=== PATIENT | male | born 1935 | race Caucasian/White ===

== ENCOUNTER 2018-12-07 13:51 | Outpatient (CLI) | payer MEDICARE, OTHER ==
[~2018-12-07] VITALS: Ht 172.7 cm; Wt 69.9 kg
[2018-12-07 14:20] VITALS: BP 139/67
[2018-12-07 15:09] LABS: BASOPHILS % (AUTO) 1 % (0-10); EOSINOPHILS # (AUTO) 0.1 10^3/uL (0.0-0.3); EOSINOPHILS % (AUTO) 2 % (0-10); HEMATOCRIT 32 % (40-54); HEMOGLOBIN 9.9 G/DL (13.3-17.7); LYMPHOCYTES # (AUTO) 1.5 X 10^3 (1.0-4.0); LYMPHOCYTES % (AUTO) 29 % (12-44); MEAN CORPUSCULAR HEMOGLOBIN 24 PG (25-34); MEAN CORPUSCULAR HGB CONC 31 G/DL (32-36); MEAN CORPUSCULAR VOLUME 78 FL (80-99); MONOCYTES # (AUTO) 0.3 X 10^3 (0.0-1.0); MONOCYTES % (AUTO) 6 % (0-12); NEUTROPHILS # (AUTO) 3.4 X 10^3 (1.8-7.8); NEUTROPHILS % (AUTO) 63 % (42-75); PLATELET COUNT 233 10^3/uL (130-400); RED CELL DISTRIBUTION WIDTH 17.1 % (10.0-14.5); WHITE BLOOD COUNT 5.3 10^3/uL (4.3-11.0)
[2018-12-07 15:44] LABS: BUN/CREATININE RATIO 13; CALCIUM 9.4 MG/DL (8.5-10.1); CARBON DIOXIDE 25 MMOL/L (21-32); CHLORIDE 103 MMOL/L (98-107); GFR ESTIMATED > 60; GLUCOSE 153 MG/DL (70-105); POTASSIUM 3.9 MMOL/L (3.6-5.0); SODIUM 136 MMOL/L (135-145)
[2018-12-08] MEDS ORDERED: AMLO5TAB9 PO (12:57)
[2018-12-08] MEDS ORDERED: CLOP75TA69 PO (12:57)
[2018-12-08] MEDS ORDERED: PRAV20TA3 PO (12:57)
[2018-12-08] MEDS ORDERED: DIAZ5TAB3 PO (12:57)
[2018-12-08] MEDS ORDERED: NITR0.4T42 SL (12:57)
[2018-12-08] MEDS ORDERED: BENA10TA7 PO (15:47)
[2018-12-08] MEDS ORDERED: FINA5TAB6 PO (15:47)
[2018-12-08] MEDS ORDERED: TAMS0.4C98 PO (15:47)
== END 2018-12-07 16:00 | disposition home or self-care (01) ==
LOC: PREOP 13:51
PROVIDERS: ATTEND Urology
DX: Z01.810 Encounter for preprocedural cardiovascular examination (principal); Z01.812 Encounter for preprocedural laboratory examination; Z11.2 Encounter for screening for other bacterial diseases; N47.1 Phimosis; N40.0 Benign prostatic hyperplasia without lower urinary tract symptoms
CPT/HCPCS: 36415; 80048; 85025; 87081; 93005

== ENCOUNTER 2018-12-09 06:05 | Day surgery (SDC) | payer MEDICARE ==
[~2018-12-09] VITALS: Ht 172.7 cm; Wt 69.9 kg
[~2018-12-09 06:05] MED LIST: AMLO5TAB9 PO; BENA10TA7 PO; CLOP75TA69 PO; DIAZ5TAB3 PO; FINA5TAB6 PO; NITR0.4T42 SL; PRAV20TA3 PO; TAMS0.4C98 PO
[2018-12-09 06:15] VITALS: BP 169/61
--- OUTSIDE RECORDS SUMMARY | 2018-12-09 06:16 | XMS REPORT ---
Author Author Sixto Charlton [facility] Address [address] [place], [place] [id number] Care Team Providers Care Boiler Riveter Name Role Phone Sixto Charlton PCP pharmacy, right source Unavailable Unavailable Sixto Charlton PreferredProvider Allergies and Adverse Reactions Name Reaction Notes simvastatin Plan of Treatment Planned Activity Comments Planned Date Planned Time Plan/Goal Carotid Sono 03/30/2013 12:00 AM CBC With Auto Differential 03/30/2013 12:00 AM CMP 03/30/2013 12:00 AM Lipid Profile 03/30/2013 12:00 AM Flu Injection 3 Years And Above [facility]# [id number] [facility] 04/04/2014 12:00 AM Stool leukocyte detection by light microscopy 09/27/2014 12:00 AM Medications Active Name Start Date Estimated Completion Date SIG Comments Zantac 150 mg oral tablet 07/09/2012 take 1 tablet (150 mg) by oral route 2 times per day betamethasone dipropionate 0.05 % topical cream 08/02/2013 apply a thin layer to the affected area(s) by topical route once daily Nitrostat 0.4 mg sublingual tablet, sublingual 03/28/2015 place 1 tablet (0.4 mg) by sublingual route at the 1st sign of attack; may repeat every 5 min until relief; if pain persists after 3 tablets in 15 min, prompt medical attention is recommended aspirin 81 mg oral tablet,delayed release (DR/EC) 11/20/2015 take 1 tablet (81 mg) by oral route once daily tramadol 50 mg oral tablet 06/12/2017 TAKE ONE TABLET BY MOUTH EVERY 6 HOURS NEEDED 4 Wheeled Walker 10/23/2017 as directed diazepam 5 mg oral tablet 01/08/2018 take 1 tablet by oral route 2 times a day as needed nitroglycerin 0.4 mg sublingual tablet, sublingual 03/19/2018 PLACE ONE TABLET UNDER TONGUE EVERY 5 MINUTES FOR THREE DOSES NEEDED FOR CRUSHING amlodipine 5 mg oral tablet 05/07/2018 TAKE 1 TABLET EVERY DAY benazepril 20 mg oral tablet 05/07/2018 TAKE 1 TABLET EVERY DAY Plavix 75 mg oral tablet 05/07/2018 TAKE 1 TABLET ONE TIME DAILY finasteride 5 mg oral tablet 05/07/2018 TAKE 1 TABLET ONE TIME DAILY pravastatin 40 mg oral tablet 10/01/2018 TAKE 1 TABLET EVERY DAY Flomax 0.4 mg oral capsule 10/01/2018 TAKE 1 CAPSULE ONE TIME DAILY 30 MINUTES AFTER THE SAME MEAL EACH DAY diazepam 5 mg oral tablet 10/01/2018 TAKE 1 TABLET TWICE DAILY NEEDED Name Start Date Expiration Date SIG Comments hydrocortisone 2.5 % topical lotion 11/07/2009 11/21/2009 Flomax 0.4 mg oral capsule,extended release 24hr 11/09/2009 11/04/2010 take 1 capsule (0.4 mg) by oral route once daily 1/2 hour following the same meal each day for 90 days Lortab 10-500 mg oral tablet 05/07/2010 07/06/2010 take 1 tablet by oral route every 6 hours as needed for pain for 30 days Bactroban 2 % topical ointment 10/29/2010 11/05/2010 apply a small amount to the affected area by topical route 3 times per day for 7 days Bactrim DS 800-160 mg oral tablet 11/09/2010 11/16/2010 take 1 tablet by oral route every 12 hours for 7 days atenolol 50 mg oral tablet 12/24/2010 03/24/2011 TAKE ONE TABLET BY MOUTH EVERY DAY Bactrim DS 800-160 mg oral tablet 01/30/2011 02/09/2011 take 1 tablet by oral route every 12 hours for 10 days amitriptyline 25 mg oral tablet 01/02/2012 04/01/2012 TAKE ONE TABLET BY MOUTH AT BEDTIME amoxicillin 500 mg oral capsule 07/03/2012 07/10/2012 take 1 capsule (500 mg) by oral route every 8 hours for 7 days Zithromax Z-Seferino 250 mg oral tablet 08/10/2012 08/20/2012 take 2 tablets (500 mg) by oral route once daily for 1 day then 1 tablet (250 mg) by oral route once daily for 4 days tramadol 50 mg oral tablet 11/30/2012 12/20/2012 TAKE 1 TABLET BY MOUTH EVERY 4- 6 HOURS NEEDED FOR PAIN atenolol 25 mg oral tablet 03/30/2013 04/29/2013 take 1 tablet (25 mg) by oral route once daily for 30 days hydrocodone-acetaminophen 5-325 mg oral tablet 07/28/2013 2013 take 1 tablet by oral route every 6 hours as needed for pain for 15 days Cipro 500 mg oral tablet 01/17/2014 01/24/2014 take 1 tablet (500 mg) by oral route every 12 hours for 7 days Levaquin 500 mg oral tablet 08/08/2014 08/15/2014 take 1 tablet (500 mg) by oral route once daily for 7 days Prilosec 40 mg oral capsule,delayed release(/EC) 01/17/2015 03/18/2015 take 1 capsule by oral route daily for 30 days Proscar 5 mg oral tablet 03/07/2015 05/30/2016 take 1 tablet (5 mg) by oral route once daily for 90 days Levaquin 500 mg oral tablet 04/15/2016 04/22/2016 take 1 tablet (500 mg) by oral route once daily for 7 days Amitiza 8 mcg oral capsule 02/17/2017 02/24/2017 take 1 capsule (8 mcg) by oral route 2 times per day with food and water for 7 days Flagyl 500 mg oral tablet 09/15/2018 09/22/2018 take 1 tablet (500 mg) by oral route every 12 hours for 7 days Cipro 500 mg oral tablet 09/15/2018 09/22/2018 take 1 tablet (500 mg) by oral route every 12 hours for 7 days doxycycline hyclate 100 mg oral capsule 10/12/2018 10/22/2018 take 1 capsule (100 mg) by oral route 2 times per day for 10 days Discontinued Name Start Date Discontinued Date SIG Comments amitriptyline 10 mg oral tablet 01/04/2010 take 1 tablet by oral route daily deleted Fish Oil 1,000 mg oral capsule 01/20/2013 take 3 capsules by oral route daily Niacin Oral 11/20/2015 Westcort 0.2 % topical cream 11/07/2009 07/17/2010 apply to affected area(s) by topical route 2 times per day atenolol 50 mg oral tablet 02/07/2010 04/05/2010 take 1 tablet by oral route 2 times a day for 90 days Ronnie 10-40 mg oral tablet 07/09/2010 11/19/2010 take 1 tablet by oral route once daily Zithromax Z-Seferino 250 mg oral tablet 06/09/2012 take 2 tablets (500 mg) by oral route once daily for 1 day then 1 tablet (250 mg) by oral route once daily for 4 days hydrocodone-acetaminophen 5-500 mg oral tablet 05/26/2012 06/09/2012 take 1 tablet by oral route every 6 hours as needed for pain for 30 days diazepam 5 mg oral tablet 06/09/2012 03/03/2013 take 1 tablet by oral route 4 times a day for 30 days deleted diazepam 5 mg oral tablet 03/03/2013 03/03/2013 TAKE 1 TABLET BY MOUTH FOUR TIMES A DAY deleted Ultram 50 mg oral tablet 04/21/2014 10/07/2014 take 1 tablet (50 mg) by oral route every 6 hours as needed amlodipine 10 mg oral tablet 05/19/2014 03/07/2015 TAKE ONE TABLET BY MOUTH EVERY DAY for 90 days pt stopped to avoid low BP readings isosorbide mononitrate 30 mg oral tablet extended release 24 hr 06/05/2015 06/05/2016 take 1 tablet (30 mg) by oral route once daily in the morning for 90 days Cipro 250 mg oral tablet 07/18/2017 10/23/2017 take 1 tablet (250 mg) by oral route every 12 hours for 7 days Problem List Description Status Onset Actinic keratosis Active Atopic dermatitis Active carotid artery disease Active Hyperlipidemia Active Hypertension Active Anxiety Active Low back pain Active 05/22/2011 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 Retention of urine Active 07/15/2017 Drug therapy Active 07/15/2017 Vital Signs Date Time BP-Sys(mm[Hg] BP-Debbie(mm[Hg]) HR(bpm) RR(rpm) Temp WT HT HC BMI BSA BMI Percentile O2 Sat(%) 10/28/2018 9:17:00 AM 160 mmHg 64 mmHg 70 bpm 14 rpm 97.5 F 156 lbs 66 in 25.1788 kg/m 1.8152 m 99 % 09/21/2018 10:19:00 AM 124 mmHg 80 mmHg 70 bpm 18 rpm 97.8 F 164.5 lbs 66 in 26.55 kg/m2 1.86 m2 97 % 09/15/2018 10:47:00 AM 120 mmHg 60 mmHg 75 bpm 18 rpm 97.7 F 164 lbs 66 in 26.47 kg/m 1.8612 m 98 % 07/13/2018 8:32:00 AM 134 mmHg 60 mmHg 80 bpm 18 rpm 98.2 F 160 lbs 66 in 25.82 kg/m2 1.84 m2 99 % 05/19/2018 10:04:00 AM 128 mmHg 88 mmHg 61 bpm 18 rpm 97.7 F 162 lbs 66 in 26.1472 kg/m 1.8498 m 100 % 10/23/2017 1:21:00 PM 116 mmHg 74 mmHg 65 bpm 18 rpm 98.1 F 155.5 lbs 66 in 25.10 kg/m2 1.81 m2 99 % 07/15/2017 10:07:00 AM 138 mmHg 70 mmHg 78 bpm 18 rpm 150 lbs 66 in 24.2104 kg/m 1.78 m 98 % 03/18/2017 10:20:00 AM 136 mmHg 74 mmHg 62 bpm 18 rpm 96.7 F 168.5 lbs 66 in 27.20 kg/m2 1.89 m2 98 % 02/17/2017 1:28:00 PM 134 mmHg 72 mmHg 66 bpm 18 rpm 98.3 F 168.375 lbs 66 in 27.1762 kg/m 1.8859 m 98 % 06/05/2016 10:19:00 AM 146 mmHg 80 mmHg 76 bpm 16 rpm 96.8 F 170 lbs 66 in 27.44 kg/m2 1.89 m2 97 % 04/15/2016 2:53:00 PM 122 mmHg 64 mmHg 68 bpm 18 rpm 98.3 F 171 lbs 68 in 26.0002 kg/m 1.9291 m 97 % 01/17/2016 11:40:00 AM 122 mmHg 60 mmHg 66 bpm 18 rpm 97.2 F 169 lbs 68 in 25.70 kg/m2 1.92 m2 97 % 11/20/2015 2:09:00 PM 138 mmHg 66 mmHg 57 bpm 16 rpm 97.7 F 169 lbs 68 in 25.6961 kg/m 1.9178 m 98 % 07/11/2015 9:34:00 AM 132 mmHg 60 mmHg 66 bpm 18 rpm 97.5 F 160 lbs 68 in 24.33 kg/m2 1.87 m2 96 % 03/07/2015 9:39:00 AM 145 mmHg 70 mmHg 74 bpm 16 rpm 97.9 F 158 lbs 68 in 24.0236 kg/m 1.8543 m 96 % 01/17/2015 9:16:00 AM 108 mmHg 60 mmHg 64 bpm 18 rpm 97 F 162 lbs 68 in 24.63 kg/m2 1.88 m2 10/07/2014 9:25:00 AM 108 mmHg 60 mmHg 72 bpm 18 rpm 96.6 F 163 lbs 68 in 24.7838 kg/m 1.8834 m 09/20/2014 9:29:00 AM 118 mmHg 54 mmHg 82 bpm 18 rpm 97.5 F 165.25 lbs 68 in 25.13 kg/m2 1.90 m2 97 % 04/04/2014 9:09:00 AM 150 mmHg 64 mmHg 78 bpm 18 rpm 97.9 F 168 lbs 68 in 25.5441 kg/m 1.9121 m 03/08/2014 10:15:00 AM 128 mmHg 72 mmHg 68 bpm 18 rpm 97.8 F 167 lbs 68 in 25.39 kg/m2 1.91 m2 12/28/2013 9:34:00 AM 110 mmHg 60 mmHg 80 bpm 18 rpm 97.8 F 165 lbs 68 in 25.0879 kg/m 1.8949 m 11/25/2013 8:55:00 AM 128 mmHg 62 mmHg 72 bpm 18 rpm 97.1 F 169 lbs 68 in 25.70 kg/m2 1.92 m2 07/28/2013 10:13:00 AM 142 mmHg 72 mmHg 60 bpm 18 rpm 96.8 F 167 lbs 68 in 25.392 kg/m 1.9064 m 05/20/2013 3:26:00 PM 142 mmHg 76 mmHg 72 bpm 18 rpm 97.9 F 166 lbs 68 in 25.24 kg/m2 1.90 m2 03/30/2013 10:51:00 AM 156 mmHg 88 mmHg 72 bpm 18 rpm 98.1 F 168 lbs 68 in 25.5441 kg/m 1.9121 m 01/20/2013 9:45:00 AM 112 mmHg 60 mmHg 68 bpm 18 rpm 98 F 170 lbs 68 in 25.85 kg/m2 1.92 m2 08/10/2012 2:43:00 PM 120 mmHg 62 mmHg 68 bpm 18 rpm 97.6 F 159 lbs 68 in 24.1756 kg/m 1.8602 m 07/09/2012 10:54:00 AM 110 mmHg 64 mmHg 78 bpm 18 rpm 97.6 F 162 lbs 68 in 24.63 kg/m2 1.88 m2 06/09/2012 9:46:00 AM 140 mmHg 56 mmHg 88 bpm 20 rpm 97.6 F 156 lbs 68 in 23.7195 kg/m 1.8425 m 05/26/2012 11:02:00 AM 148 mmHg 60 mmHg 68 bpm 18 rpm 98.1 F 155 lbs 68 in 23.57 kg/m2 1.84 m2 03/11/2012 10:27:00 AM 110 mmHg 60 mmHg 68 bpm 18 rpm 97.6 F 174 lbs 68 in 26.4563 kg/m 1.9459 m 01/15/2012 10:17:00 AM 130 mmHg 62 mmHg 68 bpm 18 rpm 98.6 F 175 lbs 68 in 26.61 kg/m2 1.95 m2 08/14/2011 9:56:00 AM 130 mmHg 64 mmHg 60 bpm 18 rpm 96.8 F 179.5 lbs 68 in 27.2926 kg/m 1.9765 m 05/22/2011 9:48:00 AM 108 mmHg 60 mmHg 64 bpm 18 rpm 98.2 F 178 lbs 04/24/2011 2:38:00 PM 130 mmHg 70 mmHg 63 bpm 18 rpm 96.5 F 180 lbs 68 in 27.3686 kg/m 1.9792 m 98 % 04/01/2011 2:53:00 PM 150 mmHg 70 mmHg 64 bpm 18 rpm 96.8 F 175 lbs 68 in 26.61 kg/m2 1.95 m2 98 % 01/30/2011 10:19:00 AM 150 mmHg 62 mmHg 62 bpm 20 rpm 96.9 F 181 lbs 98 % 11/19/2010 9:03:00 AM 150 mmHg 88 mmHg 60 bpm 18 rpm 97.6 F 184.5 lbs 93 % 11/09/2010 10:08:00 AM 110 mmHg 60 mmHg 72 bpm 16 rpm 97.5 F 186.375 lbs 11/07/2010 2:00:00 PM 110 mmHg 55 mmHg 70 bpm 98.3 F 189 lbs 99 % 10/31/2010 9:33:00 AM 134 mmHg 76 mmHg 60 bpm 18 rpm 96.4 F 192.125 lbs 91 % 10/29/2010 9:17:00 AM 122 mmHg 60 mmHg 64 bpm 18 rpm 97.5 F 191 lbs 10/25/2010 10:21:00 AM 142 mmHg 60 mmHg 68 bpm 20 rpm 98.6 F 190 lbs 07/17/2010 2:53:00 PM 132 mmHg 70 mmHg 60 bpm 20 rpm 97.9 F 189 lbs 05/07/2010 9:02:00 AM 130 mmHg 72 mmHg 60 bpm 20 rpm 97.9 F 189 lbs 04/10/2010 10:47:00 AM 140 mmHg 64 mmHg 72 bpm 20 rpm 96.5 F 04/05/2010 2:09:00 PM 140 mmHg 62 mmHg 56 bpm 20 rpm 97.8 F 184 lbs 03/28/2010 10:56:00 AM 148 mmHg 84 mmHg 54 bpm 16 rpm 97.5 F 184.5 lbs 97 % 03/19/2010 9:01:00 AM 138 mmHg 70 mmHg 58 bpm 20 rpm 98.2 F 185 lbs 02/21/2010 3:33:00 PM 120 mmHg 80 mmHg 56 bpm 18 rpm 96.8 F 185 lbs 02/15/2010 9:03:00 AM 140 mmHg 62 mmHg 60 bpm 20 rpm 96.8 F 187 lbs 02/07/2010 8:08:00 AM 164 mmHg 76 mmHg 60 bpm 20 rpm 96.8 F 188 lbs 12/06/2009 10:49:00 AM 162 mmHg 70 mmHg 72 bpm 97.2 F 186 lbs 11/07/2009 3:24:00 PM 144 mmHg 74 mmHg 74 bpm 97.5 F 189 lbs 09/27/2009 10:21:00 AM 132 mmHg 72 mmHg 72 bpm 97.2 F 188 lbs Social History Name Description Comments denies smoking denies alcohol use Lives with spouse Tobacco Former smoker History of Procedures Date Ordered Description Order Status 07/11/2015 12:00 AM COMPLETE CBC W/AUTO DIFF WBC Reviewed 07/11/2015 12:00 AM COMPREHEN METABOLIC PANEL Reviewed 07/11/2015 12:00 AM LIPID PANEL Reviewed 05/22/2011 12:00 AM DESTRUCT PREMALG LESION Reviewed 08/14/2011 12:00 AM COMPLETE CBC W/AUTO DIFF WBC Reviewed 08/14/2011 12:00 AM COMPREHEN METABOLIC PANEL Reviewed 08/14/2011 12:00 AM LIPID PANEL Reviewed 08/14/2011 12:00 AM ASSAY OF MAGNESIUM Reviewed 08/14/2011 12:00 AM ASSAY OF CK (CPK) Reviewed 08/21/2011 12:00 AM COMPREHEN METABOLIC PANEL Reviewed 01/15/2012 12:00 AM DESTRUCT PREMALG LESION Reviewed 01/15/2012 12:00 AM DESTRUCT PREMALG LES 2-14 Reviewed 03/13/2012 12:00 AM METABOLIC PANEL TOTAL CA Reviewed 03/19/2012 12:00 AM METABOLIC PANEL TOTAL CA Reviewed 05/26/2012 12:00 AM Flu Injection 3 Years And Above [facility]# [id number] C Reviewed 09/27/2009 12:00 AM COMPLETE CBC W/AUTO DIFF WBC Reviewed 09/27/2009 12:00 AM COMPREHEN METABOLIC PANEL Reviewed 09/27/2009 12:00 AM LIPID PANEL Reviewed 07/15/2017 12:00 AM MICROBIOLOGY PROCEDURE Reviewed 08/10/2012 12:00 AM Depo-Medrol 80 Mg Im/C'tara Reviewed 08/10/2012 12:00 AM Decadron, Per 1 Mg [facility]# [id number] Reviewed 05/19/2018 12:00 AM DESTRUCT B9 LESION 1-14 Reviewed 03/30/2013 12:00 AM Flu Injection 3 Years And Above [facility]# [id number] [facility] Reviewed 09/21/2018 11:12 AM US URINE CAPACITY MEASURE Reviewed 09/21/2018 12:00 AM URINALYSIS AUTO W/SCOPE Reviewed 09/21/2018 12:00 AM ELECTROCARDIOGRAM TRACING Reviewed 09/21/2018 12:00 AM METABOLIC PANEL TOTAL CA Reviewed 09/21/2018 12:00 AM COMPLETE CBC W/AUTO DIFF WBC Reviewed 09/21/2018 12:00 AM URINALYSIS AUTO W/SCOPE Reviewed 11/16/2018 12:00 AM URINALYSIS AUTO W/SCOPE Reviewed 07/28/2013 12:00 AM COMPLETE CBC W/AUTO DIFF WBC Reviewed 07/28/2013 12:00 AM COMPREHEN METABOLIC PANEL Reviewed 07/28/2013 12:00 AM LIPID PANEL Reviewed 08/26/2013 12:00 AM ROUTINE VENIPUNCTURE Reviewed 08/26/2013 12:00 AM ASSAY OF PSA TOTAL Reviewed 02/07/2010 12:00 AM DESTRUCT PREMALG LESION Reviewed 02/15/2010 12:00 AM COMPLETE CBC W/AUTO DIFF WBC Reviewed 02/15/2010 12:00 AM COMPREHEN METABOLIC PANEL Reviewed 02/15/2010 12:00 AM LIPID PANEL Reviewed 02/21/2010 12:00 AM BIOPSY SKIN LESION Reviewed 07/17/2010 12:00 AM COMPLETE CBC W/AUTO DIFF WBC Reviewed 07/17/2010 12:00 AM COMPREHEN METABOLIC PANEL Reviewed 07/17/2010 12:00 AM LIPID PANEL Reviewed 07/17/2010 12:00 AM VITAMIN B-12 Reviewed 07/17/2010 12:00 AM ASSAY OF IRON Reviewed 04/06/2014 12:00 AM FLU VAC NO PRSV 4 ALMA DELIA 3 YRS+ Reviewed 10/29/2010 12:00 AM THER/PROPH/DIAG INJ SC/IM Reviewed 10/29/2010 12:00 AM Renan, 1 gm, [facility] [id number] Reviewed 11/09/2010 12:00 AM THER/PROPH/DIAG INJ SC/IM Reviewed 11/09/2010 12:00 AM IMMUNIZATION ADMIN Reviewed 11/09/2010 12:00 AM TD VACCINE NO PRSRV 7/> IM Reviewed 09/20/2014 12:00 AM COMPLETE CBC W/AUTO DIFF WBC Reviewed 09/20/2014 12:00 AM COMPREHEN METABOLIC PANEL Reviewed 09/20/2014 12:00 AM LIPID PANEL Reviewed 09/20/2014 12:00 AM X-RAY EXAM OF WRIST Reviewed 09/20/2014 12:00 AM ASSAY OF BLOOD/URIC ACID Reviewed 09/20/2014 12:00 AM ASSAY OF URINE/URIC ACID Reviewed 11/19/2010 12:00 AM COMPREHEN METABOLIC PANEL Reviewed 11/19/2010 12:00 AM ELECTROCARDIOGRAM COMPLETE Reviewed 09/27/2014 12:00 AM FECES CULTURE AEROBIC BACT Reviewed 09/27/2014 12:00 AM CLOSTRIDIUM AG EIA Reviewed 01/17/2015 12:00 AM EXTRACRANIAL BILAT STUDY Reviewed 01/30/2011 12:00 AM ASSAY OF PSA TOTAL Reviewed Results Summary Date and Description Results 09/27/2009 10:55 AM TRIGLYCERIDES 62.0 mg/dLCHOLESTEROL 165.0 mg/dLHDL 54.0 mg/dLTOT CHOL/HDL 3.1 LDL (CALC) 99.0 mg/dLGLUCOSE 97.0 mg/dLSODIUM 136.0 mmol/LPOTASSIUM 4.40 mmol/LCHLORIDE 100.0 mmol/LCO2 26.0 mmol/LBUN 17.0 mg/dLCREATININE 0.90 mg/dLSGOT/AST 21.0 IU/LSGPT/ALT 16.0 IU/LALK PHOS 65.0 IU/LTOTAL PROTEIN 6.80 g/dLALBUMIN 3.90 g/dLTOTAL BILI 0.50 mg/dLCALCIUM 9.40 mg/dLAGE 74 GFR NonAA 82 GFR AA 99 eGFR >60 mL/min/1.73 m2eGFR AA* >60 WBC 5.1 RBC 4.54 HGB 14.0 g/dLHCT 39.30 %MCV 87.0 fLMCH 30.80 pgMCHC 35.60 g/dLRDW SD 41 RDW CV 12.60 %MPV 9.10 fLPLT 77 NRBC# 0.00 NRBC% 0.0 %NEUT 60.30 %%LYMP 26.80 %%MONO 10.20 %%EOS 2.50 %%BASO 0.20 %#NEUT 3.09 #LYMP 1.37 #MONO 0.52 #EOS 0.13 #BASO 0.01 MANUAL DIFF NOT IND 02/15/2010 9:42 AM TRIGLYCERIDES 89.0 mg/dLCHOLESTEROL 182.0 mg/dLHDL 52.0 mg/dLTOT CHOL/HDL 3.5 LDL (CALC) 112.0 mg/dLWBC 4.2 RBC 4.48 HGB 13.80 g/dLHCT 39.60 %MCV 88.0 fLMCH 30.80 pgMCHC 34.80 g/dLRDW SD 42 RDW CV 13.0 %MPV 10.20 fLPLT 82 NRBC# 0.00 NRBC% 0.0 %NEUT 64.10 %%LYMP 20.70 %%MONO 11.90 %%EOS 3.10 %%BASO 0.20 %#NEUT 2.70 #LYMP 0.87 #MONO 0.50 #EOS 0.13 #BASO 0.01 MANUAL DIFF NOT IND GLUCOSE 99.0 mg/dLSODIUM 134.0 mmol/LPOTASSIUM 4.40 mmol/LCHLORIDE 97.0 mmol/LCO2 29.0 mmol/LBUN 13.0 mg/dLCREATININE 0.80 mg/dLSGOT/AST 16.0 IU/LSGPT/ALT 9.0 IU/LALK PHOS 55.0 IU/LTOTAL PROTEIN 6.70 g/dLALBUMIN 4.0 g/dLTOTAL BILI 0.70 mg/dLCALCIUM 9.20 mg/dLAGE 74 GFR NonAA 94 GFR AA 114 eGFR >60 mL/min/1.73 m2eGFR AA* >60 07/17/2010 4:00 PM IRON TOTAL 100.0 ug/dLTRIGLYCERIDES 93.0 mg/dLCHOLESTEROL 173.0 mg/dLHDL 47.0 mg/dLTOT CHOL/HDL 3.7 LDL (CALC) 107.0 mg/dLVITAMIN B12 492.0 pg/mLWBC 6.3 RBC 4.27 HGB 13.40 g/dLHCT 39.0 %MCV 91.0 fLMCH 31.40 pgMCHC 34.40 g/dLRDW SD 42 RDW CV 12.60 %MPV 9.90 fLPLT 108 NRBC# 0.00 NRBC% 0.0 %NEUT 64.0 %%LYMP 26.0 %%MONO 7.50 %%EOS 2.20 %%BASO 0.30 %#NEUT 4.00 #LYMP 1.63 #MONO 0.47 #EOS 0.14 #BASO 0.02 MANUAL DIFF NOT IND GLUCOSE 116.0 mg/dLSODIUM 133.0 mmol/L POTASSIUM 3.90 mmol/LCHLORIDE 99.0 mmol/LCO2 24.0 mmol/LBUN 17.0 mg/dLCREATININE 1.10 mg/dLSGOT/AST 25.0 IU/LSGPT/ALT 21.0 IU/LALK PHOS 84.0 IU/LTOTAL PROTEIN 7.30 g/dLALBUMIN 4.40 g/dLTOTAL BILI 0.70 mg/dLCALCIUM 9.80 mg/dLAGE 74 GFR NonAA 65 GFR AA 79 eGFR >60 mL/min/1.73 m2eGFR AA* >60 11/19/2010 9:52 AM GLUCOSE 102.0 mg/dLSODIUM 135.0 mmol/LPOTASSIUM 4.40 mmol/LCHLORIDE 98.0 mmol/LCO2 26.0 mmol/LBUN 15.0 mg/dLCREATININE 0.90 mg/dLSGOT/AST 18.0 IU/LSGPT/ALT 14.0 IU/LALK PHOS 58.0 IU/LTOTAL PROTEIN 6.90 g/dLALBUMIN 4.30 g/dLTOTAL BILI 0.60 mg/dLCALCIUM 9.80 mg/dLAGE 75 GFR NonAA 82 GFR AA 99 eGFR >60 mL/min/1.73 m2eGFR AA* >60 01/30/2011 11:10 AM PSA TOTAL 1.870 ng/mL 08/14/2011 10:30 AM WBC 5.3 RBC 4.39 HGB 13.40 g/dLHCT 38.50 %MCV 88.0 fLMCH 30.50 pgMCHC 34.80 g/dLRDW SD 41 RDW CV 12.60 %MPV 9.50 fLPLT 119 NRBC# 0.00 NRBC% 0.0 %NEUT 52.10 %%LYMP 36.20 %%MONO 9.20 %%EOS 2.30 %%BASO 0.20 %#NEUT 2.78 #LYMP 1.93 #MONO 0.49 #EOS 0.12 #BASO 0.01 MANUAL DIFF NOT IND GLUCOSE 95.0 mg/dLSODIUM 126.0 mmol/LPOTASSIUM 4.30 mmol/LCHLORIDE 91.0 mmol/LCO2 26.0 mmol/LBUN 18.0 mg/dLCREATININE 0.90 mg/dLSGOT/AST 18.0 IU/LSGPT/ALT 14.0 IU/LALK PHOS 62.0 IU/LTOTAL PROTEIN 6.80 g/dLALBUMIN 4.10 g/dLTOTAL BILI 0.80 mg/dLCALCIUM 9.50 mg/dLAGE 75 GFR NonAA 82 GFR AA 99 eGFR >60 mL/min/1.73 m2eGFR AA* >60 CPK 97 IU/LTRIGLYCERIDES 67.0 mg/dLCHOLESTEROL 197.0 mg/dLHDL 69.0 mg/dLTOT CHOL/HDL 2.9 LDL (CALC) 115.0 mg/dLMAGNESIUM 1.80 mg/dL 08/21/2011 11:17 AM GLUCOSE 114.0 mg/dLSODIUM 129.0 mmol/LPOTASSIUM 4.60 mmol/LCHLORIDE 93.0 mmol/LCO2 26.0 mmol/LBUN 15.0 mg/dLCREATININE 0.90 mg/dLSGOT/AST 25.0 IU/LSGPT/ALT 15.0 IU/LALK PHOS 71.0 IU/LTOTAL PROTEIN 6.40 g/dLALBUMIN 3.90 g/dLTOTAL BILI 0.60 mg/dLCALCIUM 9.30 mg/dLAGE 75 GFR NonAA 82 GFR AA 99 eGFR >60 mL/min/1.73 m2eGFR AA* >60 03/19/2012 10:36 AM GLUCOSE 108.0 mg/dLSODIUM 133.0 mmol/LPOTASSIUM 4.30 mmol/LCHLORIDE 98.0 mmol/LCO2 25.0 mmol/LBUN 14.0 mg/dLCREATININE 1.10 mg/dLCALCIUM 9.60 mg/dLAGE 76 GFR NonAA 65 GFR AA 79 eGFR 60 eGFR AA* 60 03/20/2012 8:35 AM GLUCOSE 92.0 mg/dLSODIUM 130.0 mmol/LPOTASSIUM 3.90 mmol/LCHLORIDE 96.0 mmol/LCO2 24.0 mmol/LBUN 14.0 mg/dLCREATININE 0.90 mg/dLCALCIUM 9.80 mg/dLAGE 76 GFR NonAA 82 GFR AA 99 eGFR 60 eGFR AA* 60 07/29/2013 8:55 AM WBC 5.3 RBC 4.44 HGB 13.70 g/dLHCT 39.50 %MCV 89.0 fLMCH 30.90 pgMCHC 34.70 g/dLRDW SD 44 RDW CV 13.40 %MPV 9.50 fLPLT 115 NRBC# 0.00 NRBC% 0.0 %NEUT 55.30 %%LYMP 31.80 %%MONO 10.50 %%EOS 2.20 %%BASO 0.20 %#NEUT 2.95 #LYMP 1.70 #MONO 0.56 #EOS 0.12 #BASO 0.01 MANUAL DIFF NOT IND TRIGLYCERIDES 47.0 mg/dLCHOLESTEROL 163.0 mg/dLHDL 68.0 mg/dLTOT CHOL/HDL 2.4 LDL (CALC) 86.0 mg/dLGLUCOSE 104.0 mg/dLSODIUM 132.0 mmol/LPOTASSIUM 3.90 mmol/LCHLORIDE 98.0 mmol/LCO2 26.0 mmol/LBUN 11.0 mg/dLCREATININE 0.90 mg/dLSGOT/AST 21.0 IU/LSGPT/ALT 18.0 IU/LALK PHOS 94.0 IU/LTOTAL PROTEIN 6.70 g/dLALBUMIN 4.10 g/dLTOTAL BILI 1.0 mg/dLCALCIUM 9.80 mg/dLAGE 77 GFR NonAA 82 GFR AA 99 eGFR >60 mL/min/1.73 m2eGFR AA* >60 08/26/2013 8:15 AM PSA TOTAL 2.390 ng/mL 09/21/2014 8:12 AM WBC 5.6 RBC 4.50 HGB 13.40 g/dLHCT 39.70 %MCV 88.0 fLMCH 29.80 pgMCHC 33.80 g/dLRDW SD 44 RDW CV 13.50 %MPV 10.0 fLPLT 129 NRBC# 0.00 NRBC% 0.0 %NEUT 60.10 %%LYMP 29.40 %%MONO 8.70 %%EOS 1.40 %%BASO 0.40 %#NEUT 3.39 #LYMP 1.66 #MONO 0.49 #EOS 0.08 #BASO 0.02 MANUAL DIFF NOT IND GLUCOSE 89.0 mg/dLSODIUM 138.0 mmol/LPOTASSIUM 3.60 mmol/LCHLORIDE 101.0 mmol/LCO2 24.0 mmol/LBUN 13.0 mg/dLCREATININE 0.90 mg/dLSGOT/AST 17.0 IU/LSGPT/ALT 12.0 IU/LALK PHOS 77.0 IU/LTOTAL PROTEIN 6.90 g/dLALBUMIN 4.0 g/dLTOTAL BILI 0.50 mg/dLCALCIUM 9.60 mg/dLAGE 78 GFR NonAA 81 GFR AA 98 eGFR >60 mL/min/1.73 m2eGFR AA* >60 TRIGLYCERIDES 73.0 mg/dLCHOLESTEROL 170.0 mg/dLHDL 58.0 mg/dLTOT CHOL/HDL 2.9 LDL (CALC) 97.0 mg/dLURIC ACID 5.6 mg/dL 09/29/2014 10:45 AM C DIFFICILE NAAT NEGATIVE 07/11/2015 10:30 AM WBC 7.2 RBC 4.69 HGB 13.20 g/dLHCT 39.40 %MCV 84.0 fLMCH 28.10 pgMCHC 33.50 g/dLRDW SD 41 RDW CV 13.60 %MPV 9.80 fLPLT 169 NRBC# 0.00 NRBC% 0.0 %NEUT 70.30 %%LYMP 22.30 %%MONO 6.10 %%EOS 1.0 %%BASO 0.30 %#NEUT 5.07 #LYMP 1.61 #MONO 0.44 #EOS 0.07 #BASO 0.02 MANUAL DIFF NOT IND TRIGLYCERIDES 83.0 mg/dLCHOLESTEROL 188.0 mg/dLHDL 47.0 mg/dLTOT CHOL/HDL 4.0 LDL (CALC) 124.0 mg/dLGLUCOSE 106.0 mg/dLSODIUM 132.0 mmol/LPOTASSIUM 4.30 mmol/LCHLORIDE 99.0 mmol/LCO2 24.0 mmol/LBUN 16.0 mg/dLCREATININE 1.10 mg/dLSGOT/AST 16.0 IU/LSGPT/ALT 12.0 IU/LALK PHOS 82.0 IU/LTOTAL PROTEIN 6.40 g/dLALBUMIN 4.10 g/dLTOTAL BILI 0.90 mg/dLCALCIUM 9.50 mg/dLAGE 79 GFR NonAA 64 GFR AA 78 eGFR >60 mL/min/1.73meGFR AA* >60 07/13/2018 8:39 AM Falls in last 6 months? No Unsteady or worry about falling? Yes Fall Risk Assessment At Risk 09/21/2018 11:12 AM Residual Urine 112.0 mL 09/21/2018 3:49 PM COLOR YELLOW APPEARANCE CLEAR SPEC GRAV 1.015 pH 6.0 PROTEIN NEGATIVE GLUCOSE NEGATIVE KETONE NEGATIVE BILIRUBIN NEGATIVE BLOOD MODERATE NITRITE NEGATIVE LEUK SCREEN TRACE WBC/HPF RARE RBC/HPF 4-10 CASTS/LPF NEGATIVE CRYSTALS NEGATIVE MUCOUS THRDS NEGATIVE BACTERIA NEGATIVE EPITH CELLS NEGATIVE TRICHOMONAS NEGATIVE YEAST NEGATIVE CULT SET UP? NO 10/08/2018 10:15 AM GLUCOSE 107 SODIUM 130 POTASSIUM 4.3 CHLORIDE 98 CO2 23 BUN 11 CREATININE 1.0 CALCIUM 9.2 AGE 83 GFR NonAA 71 GFR AA 86 eGFR 71 eGFR AA* >60 WBC 4.9 RBC 4.19 HGB 10.1 HCT 32.6 MCV 78 MCH 24.1 MCHC 31.0 RDW SD 41 RDW CV 14.7 MPV 9.4 PLT 243 NRBC# 0.00 NRBC% 0.0 %NEUT 60.4 %LYMP 28.7 %MONO 7.7 %EOS 2.4 %BASO 0.6 #NEUT 2.96 #LYMP 1.41 #MONO 0.38 #EOS 0.12 #BASO 0.03 MANUAL DIFF NOT IND 10/08/2018 12:20 PM COLOR YELLOW APPEARANCE CLEAR SPEC GRAV <=1.005 pH 6.5 PROTEIN TRACE GLUCOSE NEGATIVE KETONE NEGATIVE BILIRUBIN NEGATIVE BLOOD NEGATIVE NITRITE NEGATIVE LEUK SCREEN SMALL WBC/HPF 10-20 RBC/HPF NEGATIVE CASTS/LPF NEGATIVE CRYSTALS NEGATIVE MUCOUS THRDS NEGATIVE BACTERIA 1+ EPITH CELLS NEGATIVE TRICHOMONAS NEGATIVE YEAST NEGATIVE CULT SET UP? YES 11/16/2018 11:37 AM COLOR YELLOW APPEARANCE CLEAR SPEC GRAV <=1.005 pH 6.0 PROTEIN NEGATIVE GLUCOSE NEGATIVE KETONE NEGATIVE BILIRUBIN NEGATIVE BLOOD NEGATIVE NITRITE NEGATIVE LEUK SCREEN NEGATIVE WBC/HPF NEGATIVE RBC/HPF NEGATIVE CASTS/LPF NEGATIVE CRYSTALS NEGATIVE MUCOUS THRDS NEGATIVE BACTERIA NEGATIVE EPITH CELLS FEW TRICHOMONAS NEGATIVE YEAST NEGATIVE CULT SET UP? NO History Of Immunizations Name Date Admin Mfg Name Mfg Code Trade Name Lot# Route Inj Vis Given Vis Pub CVX Td 11/09/2010 [employer] BOOSTRIX [id number] Intramuscular Left Arm 11/09/2010 01/29/2008 999 Influenza 05/26/2012 sanofi pasteur PMC [id number] [id number] Intramuscular Left Deltoid 05/26/2012 12/30/2011 141 Influenza 03/30/2013 sanofi pasteur PMC FLUZONE [id number] Intramuscular Left Deltoid 03/30/2013 01/09/2013 141 Influenza 05/07/2016 Not Entered NE Fluarix, quadrivalent, preservative free [id number] Intramuscular Left Arm 05/07/2016 06/30/2018 141 Influenza 04/08/2017 Not Entered NE Not Entered Not Entered Not Entered 07/30/2018 06/30/2018 135 History of Past Illness Name Date of Onset Comments Hypertension Sep 27 2009 10:24AM Hyperlipidemia, unspecified Sep 27 2009 10:24AM Hypertension Hyperlipidemia carotid artery disease Actinic keratosis Atopic dermatitis Anxiety Hypertension Nov 07 2009 3:28PM Hyperlipidemia, unspecified Nov 07 2009 3:28PM Atopic Dermatitis Nov 07 2009 3:28PM Actinic Keratosis Nov 07 2009 3:28PM Low back pain 05/22/2011 Hypertension Dec 06 2009 10:54AM Hypertension Feb 07 2010 8:13AM Actinic Keratosis Feb 07 2010 8:28AM Hypertension Feb 15 2010 9:06AM Hyperlipidemia, unspecified Feb 15 2010 9:06AM Essential Hypertension Mar 19 2010 9:05AM Neoplasm Of Uncertain Behavior Of Skin Feb 21 2010 3:34PM Chest Pain Mar 28 2010 11:04AM Bradycardia Apr 05 2010 2:14PM Hypertension Apr 10 2010 10:49AM Essential Hypertension May 07 2010 9:06AM Hyperlipidemia May 07 2010 9:06AM Hypertension Jul 17 2010 2:54PM Hyperlipidemia, unspecified Jul 17 2010 2:54PM Anemia Jul 17 2010 2:54PM Cellulitis of the leg-RLE Oct 29 2010 9:19AM Cellulitis of the leg-RLE Oct 31 2010 9:36AM Open wound of wrist; without mention of complication Nov 07 2010 2:28PM Open wound of forearm; without mention of complication Nov 09 2010 10:07AM Arrhythmia Nov 19 2010 9:02AM Cellulitis/Abscess, unspecified Oct 25 2010 10:28AM Screening For Prostate Cancer Jan 30 2011 10:36AM Wound infection Jan 30 2011 10:36AM Acquired bladder neck obstruction 07/15/2017 Adenofibromatous hypertrophy of prostate 07/15/2017 Retention of urine 07/15/2017 Drug therapy 07/15/2017 Rectal bleeding Apr 01 2011 2:57PM Diverticulosis of the colon Apr 24 2011 2:40PM Hemorrhoids, Internal Apr 24 2011 2:40PM Actinic Keratosis May 22 2011 10:23AM Low Back Pain May 22 2011 9:46AM Actinic Keratosis May 22 2011 9:46AM Hypertension Aug 14 2011 9:58AM Hyperlipidemia, unspecified Aug 14 2011 9:58AM Muscle cramps Aug 14 2011 9:58AM Leg cramps Aug 21 2011 10:44AM Leg cramps Aug 22 2011 8:31AM Hypertension Jan 15 2012 10:19AM Actinic Keratosis Jan 15 2012 12:12PM Hyponatremia Mar 11 2012 10:32AM Hypertension Mar 13 2012 12:35PM Hyponatremia Mar 13 2012 12:35PM Hyponatremia Mar 19 2012 5:13PM Low Back Pain May 26 2012 11:05AM Hypertension Jun 09 2012 9:55AM Insomnia, unspecified Jun 09 2012 9:55AM Gastritis Jul 09 2012 10:59AM Bronchitis, Acute Aug 10 2012 2:47PM Coronary Artery Disease Jan 20 2013 9:52AM Lumbar spinal stenosis Jan 20 2013 9:52AM Hypertension Mar 30 2013 10:56AM Carotid Stenosis Mar 30 2013 10:56AM Hyperlipidemia, unspecified Mar 30 2013 10:56AM Osteoarthritis Mar 30 2013 10:56AM Carotid Stenosis May 20 2013 3:33PM Atopic Dermatitis Jul 28 2013 10:19AM Hyperlipidemia Jul 28 2013 10:19AM Urinary Retention Jul 28 2013 10:19AM Prostate screening Aug 26 2013 8:10AM Urinary Retention Nov 25 2013 9:00AM Urinary retention Dec 28 2013 9:37AM Actinic keratitis Dec 28 2013 9:47AM BPH (benign prostatic hyperplasia) Mar 08 2014 10:20AM Actinic keratitis Mar 08 2014 1:07PM Actinic keratitis Apr 04 2014 9:35AM Low Back Pain Apr 04 2014 9:12AM carotid artery disease Apr 04 2014 9:12AM Flu Apr 06 2014 3:21PM Hypertension Sep 20 2014 9:35AM Low Back Pain Sep 20 2014 9:35AM Wrist pain Sep 20 2014 9:35AM CAD (coronary artery disease) Sep 20 2014 9:35AM Diarrhea Sep 27 2014 2:07PM Gastroenteritis Oct 07 2014 9:28AM Actinic keratitis Oct 07 2014 9:37AM Carotid artery bruit Jan 17 2015 9:24AM Gastric bleed Jan 17 2015 9:24AM Coronary artery disease Mar 07 2015 9:50AM Hypertension Mar 07 2015 9:50AM Chronic pain Mar 07 2015 9:50AM Anxiety Mar 07 2015 9:50AM General Medical Exam, Adult Jul 11 2015 9:38AM TIA (transient ischemic attack) Nov 20 2015 2:19PM Actinic keratitis Nov 20 2015 2:32PM Hypertension Jan 17 2016 11:42AM Upper Respiratory Infection Apr 15 2016 3:01PM Low Back Pain Jun 05 2016 10:22AM Actinic keratitis Jun 05 2016 10:48AM Annual physical exam Feb 17 2017 1:31PM Hip pain Mar 18 2017 10:22AM Actinic keratitis Mar 18 2017 11:02AM Urinary retention Jul 15 2017 10:39AM Retention of urine Jul 15 2017 10:11AM Adenofibromatous hypertrophy of prostate Jul 15 2017 10:11AM Acquired bladder neck obstruction Jul 15 2017 10:11AM Drug therapy Jul 15 2017 10:11AM Chronic systolic heart failure Oct 23 2017 1:22PM Closed fracture of right hip, sequela Oct 23 2017 1:22PM Actinic keratitis Oct 23 2017 1:38PM Hypertension May 19 2018 10:05AM Actinic keratitis May 19 2018 10:22AM Actinic keratitis Jul 13 2018 8:56AM CAD (coronary artery disease) Jul 13 2018 8:36AM Gastroenteritis Sep 15 2018 10:49AM Dysuria Sep 21 2018 10:26AM Preoperative testing Sep 21 2018 11:22AM Phimosis Sep 21 2018 10:26AM Bladder neck contracture Sep 21 2018 10:26AM S/P TURP Sep 21 2018 10:26AM Actinic keratitis Nov 12 2018 1:09PM Hypertension Oct 28 2018 9:25AM UTI (urinary tract infection) Nov 16 2018 8:34AM Payers Insurance Name Company Name Plan Name Plan Number Policy Number Policy Group Number Start Date Humana Humana Claims Center [id number] N/A Medicare Part A Medicare - Lab/Xray [id number] N/A Medicare Part B Medicare Of [place] [id number] N/A [id number] June Medicare Part A Medicare Part A [id number] N/A [facility] [id number] June History of Encounters Visit Date Visit Type Provider 10/28/2018 Office visit Sixto Charlton MD 09/21/2018 Office visit Ervin Castillo MD 09/15/2018 Office visit Sixto Charlton MD 07/13/2018 Office visit Sixto Charlton MD 05/19/2018 Office visit Sixto Charlton MD 10/23/2017 Office visit Sixto Charlton MD 08/14/2017 [facility] Elham Arcos MD 07/15/2017 Office visit John Curiel MD 06/19/2017 [facility] Elham Arcos MD 06/19/2017 [facility] John Curiel MD 03/18/2017 Office visit Sixto Charlton MD 02/17/2017 Office visit Sixto Charlton MD 06/05/2016 Office visit Sixto Charlton MD 04/15/2016 Office visit Sixto Charlton MD 01/17/2016 Office visit Jane Astudillo APRN 11/20/2015 Office visit Sixto Charlton MD 07/11/2015 Office visit Sixto Charlton MD 03/07/2015 Office visit Sixto Charlton MD 01/17/2015 Office visit Sixto Charlton MD 10/07/2014 Office visit Sixto Charlton MD 09/20/2014 Office visit Sixto Charlton MD 04/04/2014 Office visit Sixto Charlton MD 03/08/2014 Office visit Sixto Charlton MD 12/28/2013 Office visit Sixto Charlton MD 11/25/2013 Office visit Sixto Charlton MD 07/28/2013 Office visit Sixto Charlton MD 05/20/2013 Office visit Sixto Charlton MD 03/30/2013 Office visit Sixto Charlton MD 01/20/2013 Office visit Sixto Charlton MD 08/10/2012 Office visit Sixto Charlton MD 07/09/2012 Office visit Sixto Charlton MD 06/09/2012 Office visit Sixto Charlton MD 05/26/2012 Office visit Sixto Charlton MD 03/28/2012 Hospital Deja James MD 03/27/2012 Hospital DEJA JAMES MD 03/11/2012 Office visit Sixto Charlton MD 03/09/2012 [facility] Elham Arcos MD 01/15/2012 Office visit Sixto Charlton MD 08/14/2011 Office visit Jane Astudillo APRN 05/22/2011 Office visit Sixto Charlton MD 04/24/2011 Office visit Loyd Hester MD 04/11/2011 [facility] Loyd Hester MD 04/01/2011 Office visit Loyd Hester MD 01/30/2011 Office visit Jane Astudillo APRN 11/19/2010 Hospital Elham Arcos MD 11/19/2010 Office visit Jane Astudillo APRN 11/09/2010 Office visit Elham PIKE 11/07/2010 Office visit Elham PIKE 10/31/2010 Office visit Jane Astudillo APRN 10/29/2010 Office visit Jane Astudillo APRN 10/25/2010 Office visit Sixto Charlton MD 07/17/2010 Office visit Sixto Charlton MD 05/07/2010 Office visit Sixto Charlton MD 04/10/2010 Office visit Sxito Charlton MD 04/05/2010 Office visit Sixto Charlton MD 03/28/2010 Office visit Sixto Charlton MD 03/19/2010 Office visit Sixto Charlton MD 02/21/2010 Procedures Loyd Hester MD 02/15/2010 Office visit Sixto Charlton MD 02/07/2010 Office visit Sixto Charlton MD 12/06/2009 Procedures Sixto Cahrlton MD 11/07/2009 Office visit Sixto Charlton MD 09/27/2009 Office visit Sixto Charlton MD 04/13/2009 Nurse visit Sixto Charlton MD 04/03/2009 Office visit Sixto Charlton MD 02/20/2009 Office visit Sixto Charlton MD
--- OUTSIDE RECORDS SUMMARY | 2018-12-09 06:18 | XMS REPORT ---
Author Author Sixto Charlton [facility] Address [address] [place], [place] [id number] Care Team Providers Care Mud Boss Name Role Phone Sixto Charlton PCP pharmacy, right source Unavailable Unavailable Sixto Charlton PreferredProvider Allergies and Adverse Reactions Name Reaction Notes simvastatin Plan of Treatment Planned Activity Comments Planned Date Planned Time Plan/Goal Carotid Sono 03/30/2013 12:00 AM CBC With Auto Differential 03/30/2013 12:00 AM CMP 03/30/2013 12:00 AM Lipid Profile 03/30/2013 12:00 AM URINALYSIS W/MICRO C&S IF IND 11/16/2018 12:00 AM Flu Injection 3 Years And Above [facility]# [id number] [facility] 04/04/2014 12:00 AM Stool leukocyte detection by [...] 7 days Prilosec 40 mg oral capsule,delayed release(DR/EC) 01/17/2015 03/18/2015 take 1 capsule by oral [...] AM Flu Injection 3 Years And Above [facility]# [id number] C Reviewed 09/27/2009 12:00 AM COMPLETE CBC W/AUTO DIFF WBC Reviewed 09/27/2009 12:00 AM COMPREHEN METABOLIC PANEL Reviewed 09/27/2009 12:00 AM LIPID PANEL Reviewed 07/15/2017 12:00 AM MICROBIOLOGY PROCEDURE Reviewed 08/10/2012 12:00 AM Depo-Medrol 80 Mg Im/C'tara Reviewed 08/10/2012 12:00 AM Decadron, Per 1 Mg [facility]# [address]-47 Reviewed 05/19/2018 12:00 AM DESTRUCT B9 LESION 1-14 Reviewed 03/30/2013 12:00 AM Flu Injection 3 Years And Above [facility]# [address]-95 [facility] Reviewed 09/21/2018 11:12 AM US URINE CAPACITY MEASURE Reviewed 09/21/2018 12:00 AM URINALYSIS AUTO W/SCOPE Reviewed 09/21/2018 12:00 AM ELECTROCARDIOGRAM TRACING Reviewed 09/21/2018 12:00 AM METABOLIC PANEL TOTAL CA Reviewed 09/21/2018 12:00 AM COMPLETE CBC W/AUTO DIFF WBC Reviewed 09/21/2018 12:00 AM URINALYSIS AUTO W/SCOPE Reviewed 07/28/2013 [...] THER/PROPH/DIAG INJ SC/IM Reviewed 10/29/2010 12:00 AM Stevenalbertokarie, 1 gm, [facility] [id number] Reviewed 11/09/2010 12:00 AM THER/PROPH/DIAG INJ SC/IM [...] NEGATIVE YEAST NEGATIVE CULT SET UP? YES History Of Immunizations Name Date Admin Mfg Name Mfg Code Trade Name Lot# Route Inj Vis Given Vis Pub CVX Td 11/09/2010 sanofi pasteur PMC BOOSTRIX [id number] Intramuscular Left Arm 11/09/2010 01/29/2008 999 Influenza 05/26/2012 sanofi pasteur PMC FLUZONE [id number] Intramuscular Left Deltoid 05/26/2012 12/30/2011 141 Influenza 03/30/2013 sanofi pasteur PMC FLUZONE [id number] Intramuscular Left Deltoid 03/30/2013 01/09/2013 141 Influenza 05/07/2016 Not Entered NE Fluarix, quadrivalent, preservative free [id number] Intramuscular Left Arm 05/07/2016 06/30/2018 141 Influenza [...] Number Start Date Humana Humana Claims Center [id number] N/A Medicare Part A Medicare - Lab/Xray [id number] N/A Medicare Part B Medicare Of [place] [id number] N/A BCBS Bcbs [facility] [id number] June Medicare Part A Medicare Part A [id number] N/A [facility] [id number] June History of Encounters Visit Date Visit Type Provider 10/28/2018 Office visit Sixto Charlton MD 09/21/2018 Office visit Ervin Castillo MD 09/15/2018 Office visit Sixto Charlton MD 07/13/2018 Office visit Sixto Charlton MD 05/19/2018 Office visit Sixto Charlton MD 10/23/2017 Office visit Sixto Charlton MD 08/14/2017 Hospital Elham Arcos MD 07/15/2017 Office visit John Curiel MD 06/19/2017 Hospital Elham Arcos [facility] 06/19/2017 [facility] John Curiel MD 03/18/2017 Office visit Sixto Charlton MD 02/17/2017 Office visit Sixto Charlton MD 06/05/2016 Office visit Sixto Charltno MD 04/15/2016 Office visit Sixto Charlton MD [...] 03/11/2012 Office visit Sixto Charlton MD 03/09/2012 Hospital Elham Arcos MD 01/15/2012 Office visit Sixto Charlton MD 08/14/2011 Office visit Jane Astudillo ROLL CAPPER 05/22/2011 Office visit Sixto Charlton MD 04/24/2011 Office visit Loyd Hester MD 04/11/2011 Hospital Loyd Hester MD 04/01/2011 Office visit Loyd Hester MD 01/30/2011 Office visit Jane Astudillo ROLL CAPPER 11/19/2010 [facility] Elham Arcos MD 11/19/2010 Office visit Jane Astudillo ROLL CAPPER 11/09/2010 Office visit Elham PIKE 11/07/2010 Office visit Elham PIKE 10/31/2010 Office visit Jane Astudillo ROLL CAPPER 10/29/2010 Office visit Jane Astudillo ROLL CAPPER 10/25/2010 Office visit Sixto Charlton MD 07/17/2010 Office visit Sixto Charlton MD 05/07/2010 Office visit Sixto Charlton MD 04/10/2010 Office visit Sixto Charlton MD 04/05/2010 Office visit Sixto Charlton MD 03/28/2010 Office visit Sixto Charlton MD 03/19/2010 Office visit Sixto Charlton MD 02/21/2010 Procedures Loyd eHster MD 02/15/2010 Office visit Sixto Charlton MD 02/07/2010 Office visit Sixto Charlton MD 12/06/2009 Procedures Sixto Charlton MD 11/07/2009 Office visit Sixto Charlton MD 09/27/2009 Office visit Sixto Charlton MD 04/13/2009 Nurse visit Sixto Charlton MD 04/03/2009 Office visit Sixto Charlton MD 02/20/2009 Office visit Sixto Charlton MD
--- OUTSIDE RECORDS SUMMARY | 2018-12-09 06:19 | XMS REPORT ---
Author Author Sixto Charlton [facility] Address [address] [place], [place] [address] Care Team Providers Care Barber Shop Operator Name Role Phone Sixto Charlton PCP pharmacy, right source Unavailable Unavailable Sixto Charlton PreferredProvider Allergies and Adverse Reactions Name Reaction Notes simvastatin Plan of Treatment Planned Activity Comments Planned Date Planned Time Plan/Goal Carotid Sono 03/30/2013 12:00 AM CBC With Auto Differential 03/30/2013 12:00 AM CMP 03/30/2013 12:00 AM Lipid Profile 03/30/2013 12:00 AM Flu Injection [address] [facility]# [id number] [facility] 04/04/2014 12:00 AM Stool leukocyte detection [...] days Problem List Description Status Onset Actinic Keratosis Active Atopic dermatitis Active carotid artery disease [...] AM Flu Injection [address] [facility]# [address]-71 C Reviewed 09/27/2009 12:00 AM COMPLETE CBC W/AUTO DIFF WBC Reviewed 09/27/2009 12:00 AM COMPREHEN METABOLIC PANEL Reviewed 09/27/2009 12:00 AM LIPID PANEL Reviewed 07/15/2017 12:00 AM MICROBIOLOGY PROCEDURE Reviewed 08/10/2012 12:00 AM Depo-Medrol 80 Mg Im/C'tara Reviewed 08/10/2012 12:00 AM Decadron, Per [address] [facility]# [address]-40 Reviewed 05/19/2018 12:00 AM DESTRUCT B9 LESION 1-14 Reviewed 03/30/2013 12:00 AM Flu Injection [address] [facility]# [address]-43 [facility] Reviewed 09/21/2018 11:12 AM US URINE [...] Reviewed 10/29/2010 12:00 AM Renan, 1 gm, [facility] [id number]-[id number] Reviewed 11/09/2010 12:00 AM THER/PROPH/DIAG INJ SC/IM [...] CVX Td 11/09/2010 sanofi pasteur PMC BOOSTRIX [id number] Intramuscular Left Arm 11/09/2010 01/29/2008 999 Influenza 05/26/2012 sanofi pasteur PMC FLUZONE [id number] Intramuscular Left Deltoid 05/26/2012 12/30/2011 141 Influenza 03/30/2013 sanofi pasteur PMC FLUZONE [id number] Intramuscular Left Deltoid 03/30/2013 01/09/2013 141 Influenza 05/07/2016 Not Entered NE Fluarix, quadrivalent, preservative free [id number] Intramuscular Left Arm 05/07/2016 06/30/2018 141 Influenza 04/08/2017 Not Entered NE Not Entered Not Entered Not Entered 07/30/2018 06/30/2018 135 History of Past Illness Name Date of Onset Comments Hypertension Sep 27 2009 10:24AM Hyperlipidemia, unspecified Sep 27 2009 10:24AM Hypertension Hyperlipidemia carotid artery disease Actinic Keratosis Atopic dermatitis Anxiety Hypertension Nov 07 2009 [...] 10:26AM S/P TURP Sep 21 2018 10:26AM Payers Insurance Name Company Name Plan Name Plan Number Policy Number Policy Group Number Start Date Humana Humana Claims Center [id number] N/A Medicare Part A Medicare - Lab/Xray [id number] N/A Medicare Part B Medicare [facility] [id number] N/A BCBS Bcbs [facility] [id number] June Medicare Part A Medicare Part A [id number] N/A [facility] [id number] June History of Encounters Visit Date Visit Type Provider 10/28/2018 Office visit Sixto Charlton MD 09/21/2018 Office visit Ervin Castillo MD 09/15/2018 Office visit Sixto Charlton MD 07/13/2018 Office visit Sixto Charlton MD 05/19/2018 Office visit Sixto Charlton MD 10/23/2017 Office visit Sixto Charlton MD 08/14/2017 Hospital Elham Arcos MD 07/15/2017 Office visit John Curiel MD 06/19/2017 Hospital Elham Arcos MD 06/19/2017 [facility] Refugio Traylorarprimitivo 06/19/2017 Surgery John Curiel MD 03/18/2017 Office [...] 03/11/2012 Office visit Sixto Charlton MD 03/09/2012 [facility] Elham Arcos MD 01/15/2012 Office visit Sixto Charlton MD 08/14/2011 Office visit Jane Astudillo RIDES ATTENDANT 05/22/2011 Office visit Sixto Charlton MD 04/24/2011 Office visit Loyd Hester MD 04/11/2011 [facility] Loyd Hester MD 04/01/2011 Office visit Loyd Hester MD 01/30/2011 Office visit Jane Astudillo RIDES ATTENDANT 11/19/2010 Hospital Elham Arcos MD 11/19/2010 Office visit Jane Astudillo RIDES ATTENDANT 11/09/2010 Office visit Elham Conklin PA 11/07/2010 Office visit Elham Conklin PA 10/31/2010 Office visit Jane Astudillo RIDES ATTENDANT 10/29/2010 Office visit Jane Astudillo RIDES ATTENDANT 10/25/2010 Office visit Sixto Charlton MD 07/17/2010 [...]
--- OUTSIDE RECORDS SUMMARY | 2018-12-09 06:21 | XMS REPORT ---
Author Author Ervin Castillo Organization [facility] Address [address] [place], [place] [address] Care Team Providers Care Fare Collector Name Role Phone Diamondpedro Ervin PCP pharmacy, right source Unavailable Unavailable Sixto Charlton PreferredProvider Allergies and Adverse Reactions Name Reaction Notes simvastatin Plan of Treatment Planned Activity Comments Planned Date Planned Time Plan/Goal Carotid Sono 03/30/2013 12:00 AM CBC With Auto Differential 03/30/2013 12:00 AM CMP 03/30/2013 12:00 AM Lipid Profile 03/30/2013 12:00 AM Flu Injection 3 Years And Above [facility]# [address]-14 [facility] 04/04/2014 12:00 AM Stool leukocyte detection by [...] 10/01/2018 TAKE 1 TABLET TWICE DAILY NEEDED doxycycline hyclate 100 mg oral capsule 10/12/2018 10/22/2018 take 1 capsule (100 mg) by oral route 2 times per day for 10 days Name Start Date Expiration Date SIG Comments [...] route every 12 hours for 7 days Discontinued Name Start Date Discontinued Date [...] HC BMI BSA BMI Percentile O2 Sat(%) 09/21/2018 10:19:00 AM 124 mmHg 80 mmHg 70 bpm 18 rpm 97.8 F 164.5 lbs 66 in 26.5507 kg/m 1.864 m 97 % 09/15/2018 10:47:00 AM 120 mmHg 60 mmHg 75 bpm 18 rpm 97.7 F 164 lbs 66 in 26.47 kg/m 1.86 m2 98 % 07/13/2018 8:32:00 AM 134 mmHg 60 mmHg 80 bpm 18 rpm 98.2 F 160 lbs 66 in 25.82 kg/m2 1.8384 m 99 % 05/19/2018 10:04:00 AM 128 mmHg 88 mmHg 61 bpm 18 rpm 97.7 F 162 lbs 66 in 26.1472 kg/m 1.85 m2 100 % 10/23/2017 1:21:00 PM 116 mmHg 74 mmHg 65 bpm 18 rpm 98.1 F 155.5 lbs 66 in 25.10 kg/m2 1.8123 m 99 % 07/15/2017 10:07:00 AM 138 mmHg 70 mmHg 78 bpm 18 rpm 150 lbs 66 in 24.2104 kg/m 1.78 m2 98 % 03/18/2017 10:20:00 AM 136 mmHg 74 mmHg 62 bpm 18 rpm 96.7 F 168.5 lbs 66 in 27.20 kg/m2 1.8866 m 98 % 02/17/2017 1:28:00 PM 134 mmHg 72 mmHg 66 bpm 18 rpm 98.3 F 168.375 lbs 66 in 27.1762 kg/m 1.89 m2 98 % 06/05/2016 10:19:00 AM 146 mmHg 80 mmHg 76 bpm 16 rpm 96.8 F 170 lbs 66 in 27.44 kg/m2 1.8949 m 97 % 04/15/2016 2:53:00 PM 122 mmHg 64 mmHg 68 bpm 18 rpm 98.3 F 171 lbs 68 in 26.0002 kg/m 1.93 m2 97 % 01/17/2016 11:40:00 AM 122 mmHg 60 mmHg 66 bpm 18 rpm 97.2 F 169 lbs 68 in 25.70 kg/m2 1.9178 m 97 % 11/20/2015 2:09:00 PM 138 mmHg 66 mmHg 57 bpm 16 rpm 97.7 F 169 lbs 68 in 25.6961 kg/m 1.92 m2 98 % 07/11/2015 9:34:00 AM 132 mmHg [...] AM Flu Injection 3 Years And Above [facility]# [address]-23 C Reviewed 09/27/2009 12:00 AM COMPLETE CBC W/AUTO DIFF WBC Reviewed 09/27/2009 12:00 AM COMPREHEN METABOLIC PANEL Reviewed 09/27/2009 12:00 AM LIPID PANEL Reviewed 07/15/2017 12:00 AM MICROBIOLOGY PROCEDURE Reviewed 08/10/2012 12:00 AM Depo-Medrol 80 Mg Im/C'tara Reviewed 08/10/2012 12:00 AM Decadron, Per 1 Mg [facility]# [address]-68 Reviewed 05/19/2018 12:00 AM DESTRUCT B9 LESION 1-14 Reviewed 03/30/2013 12:00 AM Flu Injection 3 Years And Above [facility]# [address]-51 [facility] Reviewed 09/21/2018 11:12 AM US URINE CAPACITY [...] Reviewed 10/29/2010 12:00 AM Renan, 1 gm, [facility] [id number] Reviewed 11/09/2010 12:00 AM THER/PROPH/DIAG INJ SC/IM [...] CVX Td 11/09/2010 sanofi pasteur PMC BOOSTRIX [id number] Intramuscular Left Arm 11/09/2010 01/29/2008 999 Influenza 05/26/2012 sanofi pasteur PMC FLUZONE [id number] Intramuscular Left Deltoid 05/26/2012 12/30/2011 141 Influenza 03/30/2013 sanofi pasteur PMC FLUZONE [id number] Intramuscular Left Deltoid 03/30/2013 01/09/2013 141 Influenza 05/07/2016 Not Entered NE Fluarix, quadrivalent, preservative free [id number] Intramuscular Left Arm 05/07/2016 06/30/2018 141 Influenza [...] Number Start Date Humana Humana Claims Center [id number] N/A Medicare Part A Medicare - Lab/Xray [id number] N/A Medicare Part B Medicare Of [place] [id number] N/A [facility] [id number] June Medicare Part A Medicare Part A [id number] N/A [facility] [id number] June History of Encounters Visit Date Visit Type Provider 09/21/2018 Office visit Ervin Castillo MD 09/15/2018 Office visit Sixto Charlton MD 07/13/2018 Office visit Sixto Charlton MD 05/19/2018 Office visit Sixto Charlton MD 10/23/2017 Office visit Sixto Charlton MD 08/14/2017 Hospital Elham Arcos MD 07/15/2017 Office visit John Curiel MD 06/19/2017 Hospital Elham Arcos MD 06/19/2017 [facility] Refugio Traylorcoprimitivo HIGH 06/19/2017 Surgery John Curiel MD 03/18/2017 Office [...] Charlton MD 08/14/2011 Office visit Jane Astudillo DISPENSING AUDIOLOGIST 05/22/2011 Office visit Sixto Charlton MD 04/24/2011 Office visit Loyd Hester MD 04/11/2011 [facility] Loyd Hester MD 04/01/2011 Office visit Loyd Hester MD 01/30/2011 Office visit Jane Astudillo DISPENSING AUDIOLOGIST 11/19/2010 Hospital Elham Arcos MD 11/19/2010 Office visit Jane Astudillo DISPENSING AUDIOLOGIST 11/09/2010 Office visit Elham Conklin PA 11/07/2010 Office visit Elham Conklin PA 10/31/2010 Office visit Jane Astudillo DISPENSING AUDIOLOGIST 10/29/2010 Office visit Jane Astudillo DISPENSING AUDIOLOGIST 10/25/2010 Office visit Sixto Charlton MD 07/17/2010 [...]
--- OUTSIDE RECORDS SUMMARY | 2018-12-09 06:23 | XMS REPORT ---
Author Author Ervin Castillo Organization [facility] Address [address] [place], [place] [address] Care Team Providers Care Commercial Project Manager Name Role Phone Diamondpedro Ervin PCP pharmacy, right source Unavailable Unavailable Sixto Charlton PreferredProvider Allergies and Adverse Reactions Name Reaction Notes simvastatin Plan of Treatment Planned Activity Comments Planned Date Planned Time Plan/Goal Carotid Sono 03/30/2013 12:00 AM CBC With Auto Differential 03/30/2013 12:00 AM CMP 03/30/2013 12:00 AM Lipid Profile 03/30/2013 12:00 AM Flu Injection 3 Years And Above [facility]# [id number] [facility] 04/04/2014 12:00 AM Stool leukocyte detection [...] AM Flu Injection 3 Years And Above [facility]# [id number] [facility] Reviewed 09/27/2009 12:00 AM COMPLETE CBC W/AUTO DIFF WBC Reviewed 09/27/2009 12:00 AM COMPREHEN METABOLIC PANEL Reviewed 09/27/2009 12:00 AM LIPID PANEL Reviewed 07/15/2017 12:00 AM MICROBIOLOGY PROCEDURE Reviewed 08/10/2012 12:00 AM Depo-Medrol 80 Mg Im/C'tara Reviewed 08/10/2012 12:00 AM Decadron, Per 1 Mg [facility]# [address]-91 Reviewed 05/19/2018 12:00 AM DESTRUCT B9 LESION 1-14 Reviewed 03/30/2013 12:00 AM Flu Injection 3 Years And Above [facility]# [id number] [facility] Reviewed 09/21/2018 11:12 AM US URINE CAPACITY MEASURE Reviewed 09/21/2018 12:00 AM URINALYSIS AUTO W/SCOPE Reviewed 09/21/2018 12:00 AM ELECTROCARDIOGRAM TRACING Reviewed 09/21/2018 12:00 AM METABOLIC PANEL TOTAL CA Reviewed 09/21/2018 12:00 AM COMPLETE CBC W/AUTO DIFF WBC Returned 09/21/2018 12:00 AM URINALYSIS AUTO W/SCOPE Returned 07/28/2013 12:00 AM COMPLETE CBC W/AUTO DIFF [...] THER/PROPH/DIAG INJ SC/IM Reviewed 10/29/2010 12:00 AM Fan Urrutia gm, [facility] [id number]-Ttlzmsas Reviewed 11/09/2010 12:00 AM THER/PROPH/DIAG INJ SC/IM [...] AA 86 eGFR 71 eGFR AA* >60 History Of Immunizations Name Date Admin [facility] Name [facility] Code Trade Name Lot# Route Inj Vis Given Vis Pub CVX Td 11/09/2010 sanofi pasteur PMC BOOSTRIX [id number] Intramuscular Left Arm 11/09/2010 01/29/2008 999 Influenza 05/26/2012 sanofi pasteur PMC FLUZONE [id number] Intramuscular Left Deltoid 05/26/2012 12/30/2011 141 Influenza 03/30/2013 sanofi pasteur PMC FLUZONE [id number] Intramuscular Left Deltoid 03/30/2013 01/09/2013 141 Influenza 05/07/2016 Not Entered NE Fluarix, quadrivalent, preservative free [id number] Intramuscular Left Arm 05/07/2016 06/30/2018 141 Influenza [...] Number Start Date Humana Humana Claims Center [id number] N/A Medicare Part A Medicare - Lab/Xray [id number] N/A Medicare Part B Medicare Of [place] [id number] N/A [id number] June Medicare Part A Medicare Part A [id number] N/A [facility] [id number] June History of Encounters Visit Date Visit Type Provider 09/21/2018 Office visit Ervin Castillo MD 09/15/2018 Office visit Sixto Charlton MD 07/13/2018 Office visit Sixto Charlton MD 05/19/2018 Office visit Sixto Charlton MD 10/23/2017 Office visit Sixto Charlton MD 08/14/2017 Hospital Elham Arcos MD 07/15/2017 Office visit John Curiel MD 06/19/2017 [facility] Elham Arcos MD 06/19/2017 [facility] Refugio Craig DO 06/19/2017 Surgery John Curiel MD 03/18/2017 Office visit Sixto Charlton MD 02/17/2017 Office visit Sixto Charlton MD 06/05/2016 Office visit Sixto Charlton MD 04/15/2016 Office visit Sixto Charlton MD 01/17/2016 Office visit Jane Astudillo MACHINIST HELPER 11/20/2015 Office visit Sixto Charlton MD 07/11/2015 [...] Charlton MD 08/14/2011 Office visit Jane Astudillo MACHINIST HELPER 05/22/2011 Office visit Sixto Charlton MD 04/24/2011 Office visit Loyd Hester MD 04/11/2011 Hospital Loyd Hester MD 04/01/2011 Office visit Loyd Hester MD 01/30/2011 Office visit Jane Astudillo MACHINIST HELPER 11/19/2010 Hospital Elham Arcos MD 11/19/2010 Office visit Jane Astudillo MACHINIST HELPER 11/09/2010 Office visit Elham PIKE 11/07/2010 Office visit Elham PIKE 10/31/2010 Office visit Jane Astudillo MACHINIST HELPER 10/29/2010 Office visit Jane Astudillo MACHINIST HELPER 10/25/2010 Office visit Sixto Charlton MD 07/17/2010 [...]
--- OUTSIDE RECORDS SUMMARY | 2018-12-09 06:24 | XMS REPORT ---
Author Author Ervin Castillo Organization [facility] Address [address] [place], [place] [address] Care Team Providers Care Men'S Garment Fitter Name Role Phone Ervin Castillo PCP pharmacy, right source Unavailable Unavailable Sixto Charlton PreferredProvider Allergies and Adverse Reactions Name Reaction Notes simvastatin Plan of Treatment Planned Activity Comments Planned Date Planned Time Plan/Goal Carotid Sono 03/30/2013 12:00 AM CBC With Auto Differential 03/30/2013 12:00 AM CMP 03/30/2013 12:00 AM Lipid Profile 03/30/2013 12:00 AM EKG. 09/21/2018 12:00 AM BMP 09/21/2018 12:00 AM CBC W/ AUTO DIFF (RFLX MAN DIFF IF IND). 09/21/2018 12:00 AM URINALYSIS W/MICRO C&S IF IND 09/21/2018 12:00 AM Flu Injection 3 Years And Above [facility]# [id number] [facility] 04/04/2014 12:00 AM Stool leukocyte detection [...] (81 mg) by oral route once daily pravastatin 40 mg oral tablet 06/05/2017 TAKE 1 TABLET EVERY DAY tramadol 50 mg oral tablet 06/12/2017 TAKE [...] 05/07/2018 TAKE 1 TABLET ONE TIME DAILY Name Start Date Expiration Date SIG Comments [...] with food and water for 7 days Flomax 0.4 mg oral capsule,extended release 24hr 06/12/2017 06/07/2018 TAKE 1 CAPSULE ONE TIME DAILY 30 MINUTES AFTER THE SAME MEAL EACH DAY for 90 days Flagyl 500 mg oral tablet 09/15/2018 [...] 3 Years And Above [facility]# [address]-77 C Reviewed 09/27/2009 12:00 AM COMPLETE CBC W/AUTO DIFF WBC Reviewed 09/27/2009 12:00 AM COMPREHEN METABOLIC PANEL Reviewed 09/27/2009 12:00 AM LIPID PANEL Reviewed 07/15/2017 12:00 AM MICROBIOLOGY PROCEDURE Reviewed 08/10/2012 12:00 AM Depo-Medrol 80 Mg Im/C'tara Reviewed 08/10/2012 12:00 AM Decadron, Per 1 Mg [facility]# [address]-79 Reviewed 05/19/2018 12:00 AM DESTRUCT B9 LESION 1-14 Reviewed 03/30/2013 12:00 AM Flu Injection 3 Years And Above [facility]# [address]-66 [facility] Reviewed 09/21/2018 11:12 AM US URINE [...] Reviewed 10/29/2010 12:00 AM Fan Urrutia gm, [facility] [id number]-Pvusobor Reviewed 11/09/2010 12:00 AM THER/PROPH/DIAG INJ SC/IM [...] CVX Td 11/09/2010 sanofi pasteur PMC BOOSTRIX [id number] Intramuscular Left Arm 11/09/2010 01/29/2008 999 Influenza 05/26/2012 sanofi pasteur PMC FLUZONE [id number] Intramuscular Left Deltoid 05/26/2012 12/30/2011 141 Influenza 03/30/2013 sanofi pasteur PMC FLUZONE [id number] Intramuscular Left Deltoid 03/30/2013 01/09/2013 141 Influenza 05/07/2016 Not Entered NE Fluarix, quadrivalent, preservative free [id number] Intramuscular Left Arm 05/07/2016 06/30/2018 141 Influenza [...] Number Start Date Humana Humana Claims Center [id number] N/A Medicare Part A Medicare - Lab/Xray [id number] N/A Medicare Part B Medicare Of [place] [id number] N/A [id number] June Medicare Part A Medicare Part A [id number] N/A [facility] [id number] June History of Encounters Visit Date Visit Type Provider 09/21/2018 Office visit Ervin Castillo MD 09/15/2018 Office visit Sixto Charlton MD 07/13/2018 Office visit Sixto Charlton MD 05/19/2018 Office visit Sixto Charlton MD 10/23/2017 Office visit Sixto Charlton MD 08/14/2017 Hospital Elham Arcos MD 07/15/2017 Office visit John Curiel MD 06/19/2017 Hospital Elham Arcos MD 06/19/2017 [facility] Refugio Craig DO 06/19/2017 Surgery John Curiel [...] visit Sixto Charlton MD 06/09/2012 Office visit iSxto Charlton MD 05/26/2012 Office visit Sixto Charlton MD 03/28/2012 Hospital Deja James MD 03/27/2012 Hospital DEJA JAMES MD 03/11/2012 Office visit Sixto Charlton MD 03/09/2012 [facility] Elham Arcos MD 01/15/2012 Office visit Sixto Charlton MD 08/14/2011 Office visit Jane Astudillo SURVEY RESEARCH TEACHER 05/22/2011 Office visit Sixto Charlton MD 04/24/2011 Office visit Loyd Hester MD 04/11/2011 [facility] Loyd Hester MD 04/01/2011 Office visit Loyd Hester MD 01/30/2011 Office visit Jane Astudillo SURVEY RESEARCH TEACHER 11/19/2010 Hospital Elham Arcos MD 11/19/2010 Office visit Jane Astudillo SURVEY RESEARCH TEACHER 11/09/2010 Office visit Elham PIKE 11/07/2010 Office visit Elham PIKE 10/31/2010 Office visit Jane Astudillo SURVEY RESEARCH TEACHER 10/29/2010 Office visit Jane Astudillo SURVEY RESEARCH TEACHER 10/25/2010 Office visit Sixto Charlton MD 07/17/2010 [...]
--- OUTSIDE RECORDS SUMMARY | 2018-12-09 06:26 | XMS REPORT ---
Author Author Ervin Castillo Organization [facility] Address [address] [place], [place] [address] Care Team Providers Care Horseshoer Name Role Phone Ervin Castillo PCP pharmacy, [...] AM Flu Injection 3 Years And [address] [facility]# [id number] [facility] 04/04/2014 12:00 AM Stool leukocyte detection by [...] (81 mg) by oral route once daily benazepril 20 mg oral tablet 06/05/2017 TAKE 1 TABLET EVERY DAY amlodipine 5 mg oral tablet 06/05/2017 TAKE 1 TABLET ONE TIME DAILY pravastatin 40 mg oral tablet 06/05/2017 TAKE [...] 05/07/2018 TAKE 1 TABLET ONE TIME DAILY Flagyl 500 mg oral tablet 09/15/2018 09/22/2018 take 1 tablet (500 mg) by oral route every 12 hours for 7 days Cipro 500 mg oral tablet 09/15/2018 09/22/2018 take 1 tablet (500 mg) by oral route every 12 hours for 7 days Name Start Date Expiration Date SIG [...] oral route once daily for 90 days Flomax 0.4 mg oral capsule,extended release 24hr 06/05/2015 08/28/2016 take 1 capsule (0.4 mg) by oral route once daily 1/2 hour following the same meal each day for 90 days pravastatin 40 mg oral tablet 06/05/2015 05/30/2016 take 1 tablet (40 mg) by oral route daily for 90 days Levaquin 500 mg [...] SAME MEAL EACH DAY for 90 days Discontinued Name Start Date Discontinued Date [...] 179.5 lbs 68 in 27.2926 kg/m 1.9765 05/22/2011 9:48:00 AM 108 mmHg 60 mmHg [...] AM Flu Injection 3 Years And [address] [facility]# [id number] [facility] Reviewed 09/27/2009 12:00 AM COMPLETE CBC W/AUTO DIFF WBC Reviewed 09/27/2009 12:00 AM COMPREHEN METABOLIC PANEL Reviewed 09/27/2009 12:00 AM LIPID PANEL Reviewed 07/15/2017 12:00 AM MICROBIOLOGY PROCEDURE Reviewed 08/10/2012 12:00 AM Depo-Medrol 80 Mg Im/C'tara Reviewed 08/10/2012 12:00 AM Decadron, Per [address] [facility]# [address]-38 Reviewed 05/19/2018 12:00 AM DESTRUCT B9 LESION 1-14 Reviewed 03/30/2013 12:00 AM Flu Injection 3 Years And [address] [facility]# [address]-23 [facility] Reviewed 09/21/2018 11:12 AM US URINE CAPACITY MEASURE Reviewed 09/21/2018 12:00 AM URINALYSIS AUTO W/SCOPE Returned [...] Reviewed 10/29/2010 12:00 AM Renan, 1 gm, [facility] [id number] Reviewed 11/09/2010 12:00 AM THER/PROPH/DIAG INJ SC/IM [...] 09/21/2018 11:12 AM Residual Urine 112.0 mL History Of Immunizations Name Date Admin [facility] Name Mf Code Trade Name Lot# Route Inj Vis Given Vis Pub CVX Td 11/09/2010 sanofi pasteur PMC BOOSTRIX [id number] Intramuscular Left Arm 11/09/2010 01/29/2008 999 Influenza 05/26/2012 sanofi pasteur PMC FLUZONE [id number] Intramuscular Left Deltoid 05/26/2012 12/30/2011 141 Influenza 03/30/2013 sanofi pasteur PMC FLUZONE [id number] Intramuscular Left Deltoid 03/30/2013 01/09/2013 141 Influenza 05/07/2016 Not Entered NE Fluarix, quadrivalent, preservative free [id number] Intramuscular Left Arm 05/07/2016 06/30/2018 141 Influenza [...] Number Start Date Humana Humana Claims Center [id number] N/A Medicare Part A Medicare - Lab/Xray [id number] N/A Medicare Part B Medicare Of [place] [id number] N/A [id number] June Medicare Part A Medicare Part A [id number] N/A [facility] [id number] June History of Encounters Visit Date Visit Type Provider 09/21/2018 Office visit Ervin Castillo MD 09/15/2018 Office visit Sixto Charlton MD 07/13/2018 Office visit Sixto Charlton MD 05/19/2018 Office visit Sixot Charlton MD 10/23/2017 Office visit Sixto Charlton MD 08/14/2017 Hospital Elham Arcos MD 07/15/2017 Office visit John Curiel MD 06/19/2017 [facility] Elham Arcos MD 06/19/2017 [facility] Refugio Craig DO 06/19/2017 Surgery John Curiel MD 03/18/2017 Office visit Sixto hCarlton MD 02/17/2017 Office visit Sixto Charlton MD 06/05/2016 Office visit Sixto Charlton MD 04/15/2016 Office visit Sixto Charlton MD 01/17/2016 Office visit Jane Astudillo AGENCY APPOINTMENTS SUPERVISOR 11/20/2015 Office visit Sixto Charlton MD 07/11/2015 [...] Charlton MD 08/14/2011 Office visit Jane Astudillo AGENCY APPOINTMENTS SUPERVISOR 05/22/2011 Office visit Sixto Charlton MD 04/24/2011 Office visit Loyd Hester MD 04/11/2011 Hospital Loyd Hester MD 04/01/2011 Office visit Loyd Hester MD 01/30/2011 Office visit Jane Astudillo AGENCY APPOINTMENTS SUPERVISOR 11/19/2010 Hospital Elham Arcos MD 11/19/2010 Office visit Jane Astudillo AGENCY APPOINTMENTS SUPERVISOR 11/09/2010 Office visit Elham PIKE 11/07/2010 Office visit Elham PIKE 10/31/2010 Office visit Jane Astudillo AGENCY APPOINTMENTS SUPERVISOR 10/29/2010 Office visit Jane Astudillo AGENCY APPOINTMENTS SUPERVISOR 10/25/2010 Office visit Sixto Charlton MD 07/17/2010 [...]
--- OUTSIDE RECORDS SUMMARY | 2018-12-09 06:27 | XMS REPORT ---
Author Author Ervin Castillo Organization [facility] Address [address] [place], [place] [address] Care Team Providers Care Provider Education Specialist Name Role Phone DiamondErvin vasquez PCP pharmacy, right source Unavailable Unavailable Sixto Charlton PreferredProvider Allergies and Adverse Reactions Name Reaction Notes simvastatin Plan of Treatment Planned Activity Comments Planned Date Planned Time Plan/Goal Carotid Sono 03/30/2013 12:00 AM CBC With Auto Differential 03/30/2013 12:00 AM CMP 03/30/2013 12:00 AM Lipid Profile 03/30/2013 12:00 AM URINALYSIS W/MICRO C&S IF IND 09/21/2018 12:00 AM URINALYSIS W/MICRO C&S IF IND 09/21/2018 12:00 AM EKG. 09/21/2018 12:00 AM BMP 09/21/2018 12:00 AM CBC W/ AUTO DIFF (RFLX MAN DIFF IF IND). 09/21/2018 12:00 AM Flu Injection 3 Years And Above [facility]# [id number] [facility] 04/04/2014 12:00 AM Stool leukocyte detection by [...] AM Flu Injection 3 Years And Above [facility]# [address]-10 [facility] Reviewed 09/27/2009 12:00 AM COMPLETE CBC W/AUTO DIFF WBC Reviewed 09/27/2009 12:00 AM COMPREHEN METABOLIC PANEL Reviewed 09/27/2009 12:00 AM LIPID PANEL Reviewed 07/15/2017 12:00 AM MICROBIOLOGY PROCEDURE Reviewed 08/10/2012 12:00 AM Depo-Medrol 80 Mg Im/C'tara Reviewed 08/10/2012 12:00 AM Decadron, Per 1 Mg [facility]# [address]-04 Reviewed 05/19/2018 12:00 AM DESTRUCT B9 LESION 1-14 Reviewed 03/30/2013 12:00 AM Flu Injection 3 Years And Above [facility]# [address]-75 [facility] Reviewed 09/21/2018 11:12 AM US URINE CAPACITY MEASURE Reviewed 07/28/2013 12:00 AM COMPLETE CBC W/AUTO [...] INJ SC/IM Reviewed 10/29/2010 12:00 AM Renan, Fan gm, [facility] [id number]-Fusqrqep Reviewed 11/09/2010 12:00 AM THER/PROPH/DIAG INJ SC/IM [...] falling? Yes Fall Risk Assessment At Risk History Of Immunizations Name Date Admin Mfg Name Mfg Code Trade Name Lot# Route Inj Vis Given Vis Pub CVX Td 11/09/2010 sanofi pasteur PMC BOOSTRIX [id number] Intramuscular Left Arm 11/09/2010 01/29/2008 999 Influenza 05/26/2012 sanofi pasteur PMC FLUZONE [id number] Intramuscular Left Deltoid 05/26/2012 12/30/2011 141 Influenza 03/30/2013 sanofi pasteur PMC FLUZONE [id number] Intramuscular Left Deltoid 03/30/2013 01/09/2013 141 Influenza 05/07/2016 Not Entered NE Fluarix, quadrivalent, preservative free [id number] Intramuscular Left Arm 05/07/2016 06/30/2018 141 Influenza [...] 10:26AM Preoperative testing Sep 21 2018 11:22AM Payers Insurance Name Company Name Plan Name Plan Number Policy Number Policy Group Number Start Date Humana Humana Claims Center [id number] N/A Medicare Part A Medicare - Lab/Xray [id number] N/A Medicare Part B Medicare Of [place] [id number] N/A [id number] June Medicare Part A Medicare Part A [id number] N/A [facility] [id number] June History of Encounters Visit Date Visit Type Provider 09/21/2018 Office visit Ervin Castillo MD 09/15/2018 Office visit Sixto Charlton MD 07/13/2018 Office visit Sixto Charlton MD 05/19/2018 Office visit Sixto Charlton MD 10/23/2017 Office visit Sixto Charlton MD 08/14/2017 Hospital Elham Arcos MD 07/15/2017 Office visit John Curiel MD 06/19/2017 Hospital Elham Arcos MD 06/19/2017 [facility] Refugio Craig 06/19/2017 Surgery John Curiel MD 03/18/2017 Office [...] 03/11/2012 Office visit Sixto Charlton MD 03/09/2012 [facility] Elham Arcos MD 01/15/2012 Office visit Sixto Charlton MD 08/14/2011 Office visit Jane Astudillo GEOPOLITICS TEACHER 05/22/2011 Office visit Sixto Charlton MD 04/24/2011 Office visit Loyd Hester MD 04/11/2011 [facility] Loyd Hester MD 04/01/2011 Office visit Loyd Hester MD 01/30/2011 Office visit Jane Astudillo GEOPOLITICS TEACHER 11/19/2010 [facility] Elham Arcos MD 11/19/2010 Office visit Jane Astudillo GEOPOLITICS TEACHER 11/09/2010 Office visit Elham PIKE 11/07/2010 Office visit Elham PIKE 10/31/2010 Office visit Jane Astudillo GEOPOLITICS TEACHER 10/29/2010 Office visit Jane Astudillo GEOPOLITICS TEACHER 10/25/2010 Office visit Sixto Charlton MD [...]
--- OUTSIDE RECORDS SUMMARY | 2018-12-09 06:29 | XMS REPORT ---
Author Author iSxto Charlton [facility] Address [address] [place], [place] [address] Care Team Providers Care Electrologist Name Role Phone Sixto Charlton PCP pharmacy, right source Unavailable Unavailable Sixto Charlton PreferredProvider Allergies and Adverse Reactions Name Reaction Notes simvastatin Plan of Treatment Planned Activity Comments Planned Date Planned Time Plan/Goal Carotid Sono 03/30/2013 12:00 AM CBC With Auto Differential 03/30/2013 12:00 AM CMP 03/30/2013 12:00 AM Lipid Profile 03/30/2013 12:00 AM Flu Injection 3 Years And Above [facility]# [address]-43 [facility] 04/04/2014 12:00 AM Stool leukocyte detection [...] HC BMI BSA BMI Percentile O2 Sat(%) 09/15/2018 10:47:00 AM 120 mmHg 60 mmHg [...] AM Flu Injection 3 Years And Above [facility]# [address]-41 [facility] Reviewed 09/27/2009 12:00 AM COMPLETE CBC W/AUTO DIFF WBC Reviewed 09/27/2009 12:00 AM COMPREHEN METABOLIC PANEL Reviewed 09/27/2009 12:00 AM LIPID PANEL Reviewed 07/15/2017 12:00 AM MICROBIOLOGY PROCEDURE Reviewed 08/10/2012 12:00 AM Depo-Medrol 80 Mg Im/C'tara Reviewed 08/10/2012 12:00 AM Decadron, Per 1 Mg [facility]# [address]-30 Reviewed 05/19/2018 12:00 AM DESTRUCT B9 LESION 1-14 Reviewed 03/30/2013 12:00 AM Flu Injection 3 Years And Above [facility]# [address]-82 [facility] Reviewed 07/28/2013 12:00 AM COMPLETE CBC W/AUTO [...] Reviewed 10/29/2010 12:00 AM Fan Urrutia gm, [facility] [id number]-Rjllstnk Reviewed 11/09/2010 12:00 AM THER/PROPH/DIAG INJ SC/IM [...] 4.48 HGB 13.80 g/dLHCT 39.60 %MCV 88.0 Health system 30.80 pgHC 34.80 g/dLRDW SD 42 RDW CV 13.0 [...] 13.40 g/dLHCT 39.70 %MCV 88.0 fLMCH 29.80 pgHC 33.80 g/dLRDW SD 44 RDW CV 13.50 [...] 4.69 HGB 13.20 g/dLHCT 39.40 %MCV 84.0 fLH 28.10 pgHC 33.50 g/dLRDW SD 41 RDW CV 13.60 [...] CVX Td 11/09/2010 sanofi pasteur PMC BOOSTRIX [id number] Intramuscular Left Arm 11/09/2010 01/29/2008 999 Influenza 05/26/2012 sanofi pasteur PMC FLUZONE [id number] Intramuscular Left Deltoid 05/26/2012 12/30/2011 141 Influenza 03/30/2013 sanofi pasteur PMC FLUZONE [id number] Intramuscular Left Deltoid 03/30/2013 01/09/2013 141 Influenza 05/07/2016 Not Entered NE Fluarix, quadrivalent, preservative free [id number] Intramuscular Left Arm 05/07/2016 06/30/2018 141 Influenza [...] 2018 8:36AM Gastroenteritis Sep 15 2018 10:49AM Payers Insurance Name Company Name Plan Name Plan Number Policy Number Policy Group Number Start Date Human Humana Claims Center [id number] N/A Medicare Part A Medicare - Lab/Xray [id number] N/A Medicare Part B Medicare Of [place] [id number] N/A [facility] [id number] June Medicare Part A Medicare Part A [id number] N/A [facility] [id number] June History of Encounters Visit Date Visit Type Provider 09/15/2018 Office visit Sixto Charlton MD 07/13/2018 Office visit Sixto Charlton MD 05/19/2018 Office visit Sixto Charlton MD 10/23/2017 Office visit Sixto Charlton MD 08/14/2017 Hospital Elham Arcos MD 07/15/2017 Office visit John Curiel MD 06/19/2017 Hospital Elham Arcos MD 06/19/2017 [facility] Refugio Traylornvprimitivo HIGH 06/19/2017 Surgery John Curiel MD 03/18/2017 [...] 03/11/2012 Office visit Sixto Charlton MD 03/09/2012 [facility] Elham Arcos MD 01/15/2012 Office visit Sixto Charlton MD 08/14/2011 Office visit Jane Astudillo CIRCULATION WORKER 05/22/2011 Office visit Sixto Charlton MD 04/24/2011 Office visit Loyd Hester MD 04/11/2011 [facility] Loyd Hester MD 04/01/2011 Office visit Loyd Hester MD 01/30/2011 Office visit Jane Astudillo CIRCULATION WORKER 11/19/2010 Hospital Elham Arcos MD 11/19/2010 Office visit Jane Astudillo CIRCULATION WORKER 11/09/2010 Office visit Elham Conklin PA 11/07/2010 Office visit Elham Conklin PA 10/31/2010 Office visit Jane Astudillo CIRCULATION WORKER 10/29/2010 Office visit Jane Astudillo CIRCULATION WORKER 10/25/2010 Office visit Sixto Charlton MD 07/17/2010 [...]
--- OUTSIDE RECORDS SUMMARY | 2018-12-09 06:30 | XMS REPORT ---
Author Author Sixto Charlton [facility] Address [address] [place], [place] [id number] Care Team Providers Care Signing Agent Name Role Phone Sixto Charlton PCP pharmacy, [...] And Above [facility]# [id number] [facility] 04/04/2014 12:00 AM Stool leukocyte detection [...] And Above [facility]# [address]-03 [facility] Reviewed 09/27/2009 12:00 AM COMPLETE CBC W/AUTO DIFF WBC Reviewed 09/27/2009 12:00 AM COMPREHEN METABOLIC PANEL Reviewed 09/27/2009 12:00 AM LIPID PANEL Reviewed 07/15/2017 12:00 AM MICROBIOLOGY PROCEDURE Reviewed 08/10/2012 12:00 AM Depo-Medrol 80 Mg Im/C'tara Reviewed 08/10/2012 12:00 AM Decadron, Per 1 Mg [facility]# [id number] Reviewed 05/19/2018 12:00 AM DESTRUCT B9 LESION 1-14 Reviewed 03/30/2013 12:00 AM Flu Injection 3 Years And Above [facility]# [id number] [facility] Reviewed 07/28/2013 12:00 AM COMPLETE CBC [...] Urrutia gm, [facility] [id number]-Upibhcyq Reviewed 11/09/2010 12:00 AM THER/PROPH/DIAG INJ SC/IM [...] 4.48 HGB 13.80 g/dLHCT 39.60 %MCV 88.0 [facility] 30.80 pgHC 34.80 g/dLRDW SD 42 RDW [...] CVX Td 11/09/2010 sanofi pasteur PMC BOOSTRIX [id number] Intramuscular Left Arm 11/09/2010 01/29/2008 999 Influenza 05/26/2012 sanofi pasteur PMC FLUZONE [id number] Intramuscular Left Deltoid 05/26/2012 12/30/2011 141 Influenza 03/30/2013 sanofi pasteur PMC FLUZONE [id number] Intramuscular Left Deltoid 03/30/2013 01/09/2013 141 Influenza 05/07/2016 Not Entered NE Fluarix, quadrivalent, preservative free [id number] Intramuscular Left Arm 05/07/2016 06/30/2018 141 Influenza [...] Number Start Date Human [employer] Claims [employer] [id number] N/A Medicare Part A Medicare - Lab/Xray [id number] N/A Medicare Part B Medicare Of [place] [id number] N/A [facility] [id number] June Medicare Part A Medicare Part A [id number] N/A [facility] [id number] June History of Encounters Visit Date Visit Type Provider 09/15/2018 Office visit Sixto Charlton MD 07/13/2018 Office visit Sixto Charlton MD 05/19/2018 Office visit Sixto Charlton MD 10/23/2017 Office visit Sixto Charlton MD 08/14/2017 Hospital Elham Arcos MD 07/15/2017 Office visit John Curiel MD 06/19/2017 Hospital Elham Arcos MD 06/19/2017 [facility] Refugio Traylorilprimitivo HIGH 06/19/2017 Surgery John Curiel MD 03/18/2017 [...] Office visit Sixto Charlton MD 03/09/2012 [facility] Elham Arcos MD 01/15/2012 Office visit Sixto Charlton MD 08/14/2011 Office visit Jane Astudillo CHIEF ADMINISTRATIVE OFFICER 05/22/2011 Office visit Sixto Charlton MD 04/24/2011 Office visit Loyd Hester MD 04/11/2011 [facility] Loyd Hester MD 04/01/2011 Office visit Loyd Hester MD 01/30/2011 Office visit Jane Astudillo CHIEF ADMINISTRATIVE OFFICER 11/19/2010 Hospital Elham Arcos MD 11/19/2010 Office visit Jane Astudillo CHIEF ADMINISTRATIVE OFFICER 11/09/2010 Office visit Elham Conklin PA 11/07/2010 Office visit Elham Conklin PA 10/31/2010 Office visit Jane Astudillo CHIEF ADMINISTRATIVE OFFICER 10/29/2010 Office visit Jane Astudillo CHIEF ADMINISTRATIVE OFFICER 10/25/2010 Office visit Sixto Charlton MD 07/17/2010 [...]
--- OUTSIDE RECORDS SUMMARY | 2018-12-09 06:32 | XMS REPORT ---
Author Author Sixto Charlton [facility] Address [address] [place], [place] [id number] Care Team Providers Care Laser Beam Color Scanner Operator Name Role Phone Sixto Charlton PCP pharmacy, right source Unavailable Unavailable Sixto Charlton PreferredProvider Allergies and Adverse Reactions Name Reaction Notes simvastatin Plan of Treatment Planned Activity Comments Planned Date Planned Time Plan/Goal Carotid Sono 03/30/2013 12:00 AM CBC With Auto Differential 03/30/2013 12:00 AM CMP 03/30/2013 12:00 AM Lipid Profile 03/30/2013 12:00 AM Flu Injection 3 Years And Above [facility]# [address]-00 [facility] 04/04/2014 12:00 AM Stool leukocyte [...] HC BMI BSA BMI Percentile O2 Sat(%) 07/13/2018 8:32:00 AM 134 mmHg 60 mmHg 80 bpm 18 rpm 98.2 F 160 lbs 66 in 25.8244 kg/m 1.8384 m 99 % 05/19/2018 10:04:00 AM 128 mmHg 88 mmHg 61 bpm 18 rpm 97.7 F 162 lbs 66 in 26.15 kg/m2 1.85 m2 100 % 10/23/2017 1:21:00 PM [...] Flu Injection 3 Years And Above [facility]# [address]-91 [facility] Reviewed 09/27/2009 12:00 AM COMPLETE CBC W/AUTO DIFF WBC Reviewed 09/27/2009 12:00 AM COMPREHEN METABOLIC PANEL Reviewed 09/27/2009 12:00 AM LIPID PANEL Reviewed 07/15/2017 12:00 AM MICROBIOLOGY PROCEDURE Reviewed 08/10/2012 12:00 AM Depo-Medrol 80 Mg Im/C'tara Reviewed 08/10/2012 12:00 AM Decadron, Per 1 Mg [facility]# [address]-98 Reviewed 05/19/2018 12:00 AM DESTRUCT B9 LESION 1-14 Reviewed 03/30/2013 12:00 AM Flu Injection 3 Years And Above [facility]# [address]-36 [facility] Reviewed 07/28/2013 12:00 AM COMPLETE [...] THER/PROPH/DIAG INJ SC/IM Reviewed 10/29/2010 12:00 AM Renan Fan gm, [facility] [id number]-Tbyppbke Reviewed 11/09/2010 12:00 AM THER/PROPH/DIAG INJ SC/IM [...] CVX Td 11/09/2010 sanofi pasteur PMC BOOSTRIX [id number] Intramuscular Left Arm 11/09/2010 01/29/2008 999 Influenza 05/26/2012 sanLiveSafe pasteur PMC FLUZONE [id number] Intramuscular Left Deltoid 05/26/2012 12/30/2011 141 Influenza 03/30/2013 sanofi pasteur PMC FLUZONE [id number] Intramuscular Left Deltoid 03/30/2013 01/09/2013 141 Influenza 05/07/2016 Not Entered NE Fluarix, quadrivalent, preservative free [id number] Intramuscular Left Arm 05/07/2016 06/30/2018 141 History of Past Illness Name Date of [...] (coronary artery disease) Jul 13 2018 8:36AM Payers Insurance Name Company Name Plan Name Plan Number Policy Number Policy Group Number Start Date Humana Hum[employer] Claims Center [id number] N/A Medicare Part A Medicare - Lab/Xray [id number] N/A Medicare Part B Medicare Of [place] [id number] N/[id number] June Medicare Part A Medicare Part A [id number] N/A [facility] [id number] June History of Encounters Visit Date Visit Type Provider 07/13/2018 Office visit Sixto Charlton MD 05/19/2018 Office visit Sixto Charlton MD 10/23/2017 Office visit Sixto Charlton MD 08/14/2017 Hospital Elham Arcos MD 07/15/2017 Office visit John Curiel MD 06/19/2017 Hospital Elham Arcos MD 06/19/2017 [facility] Refugio Craig DO 06/19/2017 Surgery John [...] 01/30/2011 Office visit Jane Astudillo APRN 11/19/2010 [facility] Elham Arcos MD 11/19/2010 Office visit Jane Astudillo PROJECT MANAGER INTERIOR DESIGN 11/09/2010 Office visit Elham PIKE 11/07/2010 Office visit Elham PIKE 10/31/2010 Office visit Jane Astudillo PROJECT MANAGER INTERIOR DESIGN 10/29/2010 Office visit Jane Astudillo PROJECT MANAGER INTERIOR DESIGN 10/25/2010 Office visit Sixto Charlton MD 07/17/2010 [...]
--- OUTSIDE RECORDS SUMMARY | 2018-12-09 06:33 | XMS REPORT ---
Author Author Sixto Charlton [facility] Address [address] [place], [place] [phone] Care Team Providers Care Printing Equipment Mechanic Apprentice Name Role Phone Sixto Charlton PCP pharmacy, right source Unavailable Unavailable Sixto Charlton PreferredProvider Allergies and Adverse Reactions Name Reaction Notes simvastatin Plan of Treatment Planned Activity Comments Planned Date Planned Time Plan/Goal Carotid Sono 03/30/2013 12:00 AM CBC With Auto Differential 03/30/2013 12:00 AM CMP 03/30/2013 12:00 AM Lipid Profile 03/30/2013 12:00 AM Flu Injection 3 Years And Above [facility]# [address]-45 [facility] 04/04/2014 12:00 AM Stool leukocyte detection [...] tablet 06/05/2017 TAKE 1 TABLET EVERY DAY Flomax 0.4 mg oral capsule,extended release 24hr 06/12/2017 06/07/2018 TAKE 1 CAPSULE ONE TIME DAILY 30 MINUTES AFTER THE SAME MEAL EACH DAY for 90 days tramadol 50 mg oral tablet 06/12/2017 TAKE [...] with food and water for 7 days Discontinued Name Start Date [...] BY MOUTH FOUR TIMES A DAY deleted catheter 14-16 Fr-" miscellaneous misc 11/25/2013 11/20/2015 use as directed Ultram 50 mg oral tablet 04/21/2014 10/07/2014 [...] HC BMI BSA BMI Percentile O2 Sat(%) 05/19/2018 10:04:00 AM 128 mmHg 88 mmHg [...] Flu Injection 3 Years And Above [facility]# [address]-63 [facility] Reviewed 09/27/2009 12:00 AM COMPLETE CBC W/AUTO DIFF WBC Reviewed 09/27/2009 12:00 AM COMPREHEN METABOLIC PANEL Reviewed 09/27/2009 12:00 AM LIPID PANEL Reviewed 07/15/2017 12:00 AM MICROBIOLOGY PROCEDURE Reviewed 08/10/2012 12:00 AM Depo-Medrol 80 Mg Im/C'tara Reviewed 08/10/2012 12:00 AM Decadron, Per 1 Mg [facility]# [address]-72 Reviewed 03/30/2013 12:00 AM Flu Injection 3 Years And Above [facility]# [address]-02 C Reviewed 07/28/2013 12:00 AM COMPLETE CBC W/AUTO [...] 10/29/2010 12:00 AM Renan, 1 gm, [facility] [id number]-Gbphwpdj Reviewed 11/09/2010 12:00 AM THER/PROPH/DIAG INJ SC/IM [...] AA 78 eGFR >60 mL/min/1.73meGFR AA* >60 History Of Immunizations Name Date Admin Mfg Name Mfg Code Trade Name Lot# Route Inj Vis Given Vis Pub CVX Td 11/09/2010 [id number] outdoors pasteur PMC BOOSTRIX [id number] Intramuscular Left Arm 11/09/2010 01/29/2008 999 Influenza 05/26/2012 [id number] outdoors pasteur PMC FLUZONE [id number] Intramuscular Left Deltoid 05/26/2012 12/30/2011 141 Influenza 03/30/2013 [id number] FLUZONE [id number] Intramuscular Left Deltoid 03/30/2013 01/09/2013 141 Influenza 05/07/2016 Not Entered NE Fluarix, quadrivalent, preservative free [id number] Intramuscular Left Arm 05/07/2016 06/30/2017 141 History of Past Illness Name Date [...] 10:05AM Actinic keratitis May 19 2018 10:22AM Payers Insurance Name Company Name Plan Name Plan Number Policy Number Policy Group Number Start Date Humana Humana Claims Center [id number] N/A Medicare Part A Medicare - Lab/Xray [id number] N/A Medicare Part B Medicare Of [place] [id number] N/[id number] June Medicare Part A Medicare Part A [id number] N/A [facility] [id number] June History of Encounters Visit Date Visit Type Provider 05/19/2018 Office visit Sixto Charlton MD 10/23/2017 Office visit Sixto Charlton MD 08/14/2017 Hospital Elham Arcos MD 07/15/2017 Office visit John Curiel MD 06/19/2017 Hospital Elham Arcos MD 06/19/2017 Hospital Refugio Craig MD 06/19/2017 Surgery John Curiel MD 03/18/2017 Office visit Sixto Charlton MD 02/17/2017 Office visit Sixto Charlton MD 06/05/2016 Office visit Sixto Charlton MD 04/15/2016 Office visit Sixto Charlton MD 01/17/2016 Office visit Jane Astudillo CUSTOMER SERVICE ADVOCATE 11/20/2015 Office visit Sixto Charlton MD 07/11/2015 [...] MD 03/28/2012 Hospital Deja James MD 03/27/2012 [facility] DEJA JAMES MD 03/11/2012 Office visit Sixto Charlton MD 03/09/2012 Hospital Elham Arcos MD 01/15/2012 Office visit Sixto Charlton MD 08/14/2011 Office visit Jane Astudillo CUSTOMER SERVICE ADVOCATE 05/22/2011 Office visit Sixto Charlton MD 04/24/2011 Office visit Loyd Hester MD 04/11/2011 Hospital Loyd Hester MD 04/01/2011 Office visit Loyd Hester MD 01/30/2011 Office visit Jane Astudillo CUSTOMER SERVICE ADVOCATE 11/19/2010 Hospital Elham Arcos MD 11/19/2010 Office visit Jane Astudillo CUSTOMER SERVICE ADVOCATE 11/09/2010 Office visit Elham PIKE 11/07/2010 Office visit Elham PIKE 10/31/2010 Office visit Jane Astudillo CUSTOMER SERVICE ADVOCATE 10/29/2010 Office visit Jaen Astudillo CUSTOMER SERVICE ADVOCATE 10/25/2010 Office visit Sixto Charlton MD 07/17/2010 [...]
--- OUTSIDE RECORDS SUMMARY | 2018-12-09 06:35 | XMS REPORT ---
Author Author Sixto Charlton [facility] Address [address] [place], [place] [phone] Care Team Providers Care Senior It Assistant Name Role Phone Sixto Charlton PCP pharmacy, right source Unavailable Unavailable Sixto Charlton PreferredProvider Allergies and Adverse Reactions Name Reaction Notes simvastatin Plan of Treatment Planned Activity Comments Planned Date Planned Time Plan/Goal Carotid Sono 03/30/2013 12:00 AM CBC With Auto Differential 03/30/2013 12:00 AM CMP 03/30/2013 12:00 AM Lipid Profile 03/30/2013 12:00 AM Flu Injection 3 Years And Above [facility]# [address]-90 [facility] 04/04/2014 12:00 AM Stool leukocyte detection by [...] 2 times a day for 90 days Ronnei 10-40 mg oral tablet 07/09/2010 11/19/2010 take [...] Flu Injection 3 Years And Above [facility]# [address]-05 [facility] Reviewed 09/27/2009 12:00 AM COMPLETE CBC W/AUTO DIFF WBC Reviewed 09/27/2009 12:00 AM COMPREHEN METABOLIC PANEL Reviewed 09/27/2009 12:00 AM LIPID PANEL Reviewed 07/15/2017 12:00 AM MICROBIOLOGY PROCEDURE Reviewed 08/10/2012 12:00 AM Depo-Medrol 80 Mg Im/C'tara Reviewed 08/10/2012 12:00 AM Decadron, Per 1 Mg [facility]# [address]-76 Reviewed 03/30/2013 12:00 AM Flu Injection 3 Years And Above [facility]# [address]-53 C Reviewed 07/28/2013 12:00 AM COMPLETE CBC [...] 10/29/2010 12:00 AM Renan, 1 gm, [facility] [id number]-Keefohej Reviewed 11/09/2010 12:00 AM THER/PROPH/DIAG INJ SC/IM [...] Vis Given Vis Pub CVX Td 11/09/2010 sanRoadstruck pasteur PMC BOOSTRIX [id number] Intramuscular Left Arm 11/09/2010 01/29/2008 999 Influenza 05/26/2012 sanRoadstruck pasteur PMC FLUZONE [id number] Intramuscular Left Deltoid 05/26/2012 12/30/2011 141 Influenza 03/30/2013 [facility] FLU[facility] [id number] Intramuscular Left Deltoid 03/30/2013 01/09/2013 141 Influenza 05/07/2016 Not Entered NE Fluarix, quadrivalent, preservative free [id number] Intramuscular Left Arm 05/07/2016 06/30/2017 141 History [...] Number Start Date Humana Humana Claims Center [id number] N/A Medicare Part A Medicare - Lab/Xray [id number] N/A Medicare Part B Medicare Of [place] [id number] N/A [facility] [id number] June Medicare Part A Medicare Part A [id number] N/A [facility] [id number] June History of Encounters Visit Date Visit [...] Charlton MD 01/17/2016 Office visit Jane Astudillo RESEARCH HOME ECONOMIST 11/20/2015 Office visit Sixto Charlton MD 07/11/2015 [...] MD 03/28/2012 Hospital Deja James MD 03/27/2012 [facility] DEJA JAMES MD 03/11/2012 Office visit Sixto Charlton MD 03/09/2012 Hospital Elham Arcos MD 01/15/2012 Office visit Sixto Charlton MD 08/14/2011 Office visit Jane Astudillo RESEARCH HOME ECONOMIST 05/22/2011 Office visit Sixto Charlton MD 04/24/2011 Office visit Loyd Hester MD 04/11/2011 Hospital Loyd Hester MD 04/01/2011 Office visit Loyd Hester MD 01/30/2011 Office visit Jane Astudillo RESEARCH HOME ECONOMIST 11/19/2010 Hospital Elham Arcos MD 11/19/2010 Office visit Jane Astudillo RESEARCH HOME ECONOMIST 11/09/2010 Office visit Elham PIKE 11/07/2010 Office visit Elham PIKE 10/31/2010 Office visit Jane Astudillo RESEARCH HOME ECONOMIST 10/29/2010 Office visit Jane Astudillo RESEARCH HOME ECONOMIST 10/25/2010 Office visit Sixto Charlton MD 07/17/2010 [...] visit Sixto Charlton MD 04/13/2009 Nurse visit Sxito Charlton MD 04/03/2009 Office visit Sixto Charlton MD 02/20/2009 Office visit Sixto Charlton MD
--- OUTSIDE RECORDS SUMMARY | 2018-12-09 06:36 | XMS REPORT ---
Author Author Sixto Charlton [facility] Address [address] [place], [place] [id number] Care Team Providers Care Handmade Tile Artist Name Role Phone Sixto Charlton PCP Unavailable pharmacy, right source Unavailable Unavailable Allergies and Adverse Reactions Name Reaction Notes simvastatin Plan of Treatment Planned Activity Comments Planned Date Planned Time Plan/Goal METABOLIC PANEL TOTAL CA 08/22/2011 12:00 AM Carotid Sono 03/30/2013 12:00 AM COMPLETE CBC W/AUTO DIFF WBC 03/30/2013 12:00 AM COMPREHEN METABOLIC PANEL 03/30/2013 12:00 AM LIPID PANEL 03/30/2013 12:00 AM FLU VACCINE 3 YRS & > IM 04/04/2014 12:00 AM LEUKOCYTE ASSESSMENT FECAL 09/27/2014 12:00 AM Medications Active Name Start Date Estimated Completion Date SIG Comments Niacin Oral Zantac 150 mg oral tablet 07/09/2012 take 1 tablet (150 mg) by oral route 2 times per day aspirin 325 mg oral tablet 01/20/2013 take 1 tablet daily betamethasone dipropionate 0.05 % topical cream 08/02/2013 apply a thin layer to the affected area(s) by topical route once daily catheter 14-16 Fr-" miscellaneous misc 11/25/2013 use as directed benazepril 20 mg oral tablet 05/19/2014 05/14/2015 TAKE ONE TABLET BY MOUTH EVERY DAY for 90 days Plavix 75 mg oral tablet 05/19/2014 05/14/2015 take 1 tablet (75 mg) by oral route once daily pravastatin 40 mg oral tablet 05/19/2014 05/14/2015 take 1 tablet (40 mg) by oral route daily for 90 days Nitrostat 0.4 mg sublingual tablet, sublingual 01/16/2015 04/10/2016 PLACE ONE TABLET UNDER TONGUE EVERY 5 MINUTES FOR THREE DOSES NEEDED FOR CRUSHING Prilosec 40 mg oral capsule,delayed release(DR/EC) 01/17/2015 03/18/2015 take 1 capsule by oral route daily for 30 days diazepam 5 mg oral tablet 03/07/2015 take 1 tablet by oral route 2 times a day as needed Flomax 0.4 mg oral capsule,extended release 24hr 03/07/2015 05/30/2016 take 1 capsule (0.4 mg) by oral route once daily 1/2 hour following the same meal each day for 90 days isosorbide mononitrate 30 mg oral tablet extended release 24 hr 03/07/2015 05/30/2016 take 1 tablet (30 mg) by oral route once daily in the morning for 90 days Proscar 5 mg oral tablet 03/07/2015 05/30/2016 take 1 tablet (5 mg) by oral route once daily for 90 days tramadol 50 mg oral tablet 03/07/2015 TAKE ONE TABLET BY MOUTH EVERY 6 HOURS NEEDED Name Start Date Expiration Date SIG [...] oral route once daily for 7 days Discontinued Name Start Date Discontinued Date SIG Comments amitriptyline 10 mg oral tablet 01/04/2010 take 1 tablet by oral route daily deleted Fish Oil 1,000 mg oral capsule 01/20/2013 take 3 capsules by oral route daily Westcort 0.2 % topical cream 11/07/2009 07/17/2010 [...] pt stopped to avoid low BP readings Problem List Description Status Onset Actinic Keratosis Active Atopic Dermatitis Active carotid artery disease Active Hyperlipidemia Active Hypertension Active Anxiety Active Low Back Pain Active 05/22/2011 Vital Signs Date Time BP-Sys(mm[Hg] BP-Debbie(mm[Hg]) HR(bpm) RR(rpm) Temp WT HT HC BMI BSA BMI Percentile O2 Sat(%) 03/07/2015 9:39:00 AM 145 mmHg 70 mmHg 74 bpm 16 rpm 97.9 F 158 lbs 68 in 24.02 kg/m2 1.85 m2 96 % 01/17/2015 9:16:00 AM 108 mmHg 60 mmHg 64 bpm 18 rpm 97 F 162 lbs 68 in 24.6318 kg/m 1.8776 m 10/07/2014 9:25:00 AM 108 mmHg 60 mmHg 72 bpm 18 rpm 96.6 F 163 lbs 68 in 24.78 kg/m2 1.88 m2 09/20/2014 9:29:00 AM 118 mmHg 54 mmHg 82 bpm 18 rpm 97.5 F 165.25 lbs 68 in 25.1259 kg/m 1.8964 m 97 % 04/04/2014 9:09:00 AM 150 mmHg 64 mmHg 78 bpm 18 rpm 97.9 F 168 lbs 68 in 25.54 kg/m2 1.91 m2 03/08/2014 10:15:00 AM 128 mmHg 72 mmHg 68 bpm 18 rpm 97.8 F 167 lbs 68 in 25.392 kg/m 1.9064 m 12/28/2013 9:34:00 AM 110 mmHg 60 mmHg 80 bpm 18 rpm 97.8 F 165 lbs 68 in 25.09 kg/m2 1.89 m2 11/25/2013 8:55:00 AM 128 mmHg 62 mmHg 72 bpm 18 rpm 97.1 F 169 lbs 68 in 25.6961 kg/m 1.9178 m 07/28/2013 10:13:00 AM 142 mmHg 72 mmHg 60 bpm 18 rpm 96.8 F 167 lbs 68 in 25.39 kg/m2 1.91 m2 05/20/2013 3:26:00 PM 142 mmHg 76 mmHg 72 bpm 18 rpm 97.9 F 166 lbs 68 in 25.24 kg/m 1.9007 m 03/30/2013 10:51:00 AM 156 mmHg 88 mmHg 72 bpm 18 rpm 98.1 F 168 lbs 68 in 25.54 kg/m2 1.91 m2 01/20/2013 9:45:00 AM 112 mmHg 60 mmHg 68 bpm 18 rpm 98 F 170 lbs 68 in 25.8481 kg/m 1.9234 m 08/10/2012 2:43:00 PM 120 mmHg 62 mmHg 68 bpm 18 rpm 97.6 F 159 lbs 68 in 24.18 kg/m2 1.86 m2 07/09/2012 10:54:00 AM 110 mmHg 64 mmHg 78 bpm 18 rpm 97.6 F 162 lbs 68 in 24.6318 kg/m 1.8776 m 06/09/2012 9:46:00 AM 140 mmHg 56 mmHg 88 bpm 20 rpm 97.6 F 156 lbs 68 in 23.72 kg/m2 1.84 m2 05/26/2012 11:02:00 AM 148 mmHg 60 mmHg 68 bpm 18 rpm 98.1 F 155 lbs 68 in 23.5674 kg/m 1.8366 m 03/11/2012 10:27:00 AM 110 mmHg 60 mmHg 68 bpm 18 rpm 97.6 F 174 lbs 68 in 26.46 kg/m2 1.95 m2 01/15/2012 10:17:00 AM 130 mmHg 62 mmHg 68 bpm 18 rpm 98.6 F 175 lbs 68 in 26.6084 kg/m 1.9515 m 08/14/2011 9:56:00 AM 130 mmHg 64 mmHg 60 bpm 18 rpm 96.8 F 179.5 lbs 68 in 27.29 kg/m2 1.98 m2 05/22/2011 9:48:00 AM 108 mmHg 60 mmHg 64 bpm 18 rpm 98.2 F 178 lbs 04/24/2011 2:38:00 PM 130 mmHg 70 mmHg 63 bpm 18 rpm 96.5 F 180 lbs 68 in 27.37 kg/m2 1.98 m2 98 % 04/01/2011 2:53:00 PM 150 mmHg 70 mmHg 64 bpm 18 rpm 96.8 F 175 lbs 68 in 26.6084 kg/m 1.9515 m 98 % 01/30/2011 10:19:00 AM 150 mmHg [...] of Procedures Date Ordered Description Order Status 05/22/2011 12:00 AM DESTRUCT PREMALG LESION Reviewed 08/14/2011 12:00 AM COMPLETE CBC W/AUTO DIFF WBC Returned 08/14/2011 12:00 AM COMPREHEN METABOLIC PANEL Returned 08/14/2011 12:00 AM LIPID PANEL Returned 08/14/2011 12:00 AM ASSAY OF MAGNESIUM Returned 08/14/2011 12:00 AM ASSAY OF CK (CPK) Returned 08/21/2011 12:00 AM COMPREHEN METABOLIC PANEL Returned 03/13/2012 12:00 AM METABOLIC PANEL TOTAL CA Returned 03/19/2012 12:00 AM METABOLIC PANEL TOTAL CA Returned 05/26/2012 12:00 AM Flu Injection 3 Years And Above [facility]# [id number] C Reviewed 09/27/2009 12:00 AM COMPLETE CBC W/AUTO DIFF WBC Reviewed 09/27/2009 12:00 AM COMPREHEN METABOLIC PANEL Reviewed 09/27/2009 12:00 AM LIPID PANEL Reviewed 08/10/2012 12:00 AM Depo-Medrol 80 Mg Im/C'tara Reviewed 08/10/2012 12:00 AM Decadron, Per 1 Mg [facility]# [id number] Reviewed 03/30/2013 12:00 AM Flu Injection 3 Years And Above [facility]# [id number] [facility] Reviewed 07/28/2013 12:00 AM COMPLETE CBC W/AUTO DIFF WBC Reviewed 07/28/2013 12:00 AM COMPREHEN METABOLIC PANEL Reviewed 07/28/2013 12:00 AM LIPID PANEL Reviewed 08/26/2013 12:00 AM ASSAY OF PSA [...] Reviewed 10/29/2010 12:00 AM Renan, Fan gm, [facility] [id number] Reviewed 11/09/2010 12:00 AM THER/PROPH/DIAG INJ SC/IM [...] ASSAY OF PSA TOTAL Reviewed Results Summary Data and Description Results 09/27/2009 10:55 AM TRIGLYCERIDES 62.0 mg/dLCHOLESTEROL 165.0 mg/dLHDL 54.0 mg/dLLDL (CALC) 99.0 mg/dLGLUCOSE 97.0 mg/dLSODIUM 136.0 mmol/LPOTASSIUM 4.40 mmol/LCHLORIDE 100.0 mmol/LCO2 26.0 mmol/LBUN 17.0 mg/dLCREATININE 0.90 mg/dLSGOT/AST 21.0 IU/LSGPT/ALT 16.0 IU/LALK PHOS 65.0 IU/LTOTAL PROTEIN 6.80 g/dLALBUMIN 3.90 g/dLTOTAL BILI 0.50 mg/dLCALCIUM 9.40 mg/dLeGFR >60 mL/min/1.73 m2WBC 5.1 RBC 4.54 HGB 14.0 g/dLHCT 39.30 %MCV 87.0 fLMCH 30.80 pgMCHC 35.60 g/dLRDW CV 12.60 %MPV 9.10 fLPLT 77 %NEUT 60.30 %%LYMP 26.80 %%MONO 10.20 %%EOS 2.50 %%BASO 0.20 %#NEUT 3.09 #LYMP 1.37 #MONO 0.52 #EOS 0.13 #BASO 0.01 02/15/2010 9:42 AM TRIGLYCERIDES 89.0 mg/dLCHOLESTEROL 182.0 mg/dLHDL 52.0 mg/dLLDL (CALC) 112.0 mg/dLWBC 4.2 RBC 4.48 HGB 13.80 g/dLHCT 39.60 %MCV 88.0 fLMCH 30.80 pgMCHC 34.80 g/dLRDW CV 13.0 %MPV 10.20 fLPLT 82 %NEUT 64.10 %%LYMP 20.70 %%MONO 11.90 %%EOS 3.10 %%BASO 0.20 %#NEUT 2.70 #LYMP 0.87 #MONO 0.50 #EOS 0.13 #BASO 0.01 GLUCOSE 99.0 mg/dLSODIUM 134.0 mmol/LPOTASSIUM 4.40 mmol/LCHLORIDE 97.0 mmol/LCO2 29.0 mmol/LBUN 13.0 mg/dLCREATININE 0.80 mg/dLSGOT/AST 16.0 IU/LSGPT/ALT 9.0 IU/LALK PHOS 55.0 IU/LTOTAL PROTEIN 6.70 g/dLALBUMIN 4.0 g/dLTOTAL BILI 0.70 mg/dLCALCIUM 9.20 mg/dLeGFR >60 mL/min/1.73 m2 07/17/2010 4:00 PM IRON TOTAL 100.0 ug/dLTRIGLYCERIDES 93.0 mg/dLCHOLESTEROL 173.0 mg/dLHDL 47.0 mg/dLLDL (CALC) 107.0 mg/dLVITAMIN B12 492.0 pg/mLWBC 6.3 RBC 4.27 HGB 13.40 g/dLHCT 39.0 %MCV 91.0 fLMCH 31.40 pgMCHC 34.40 g/dLRDW CV 12.60 %MPV 9.90 fLPLT 108 %NEUT 64.0 %%LYMP 26.0 %%MONO 7.50 %%EOS 2.20 %%BASO 0.30 %#NEUT 4.00 #LYMP 1.63 #MONO 0.47 #EOS 0.14 #BASO 0.02 GLUCOSE 116.0 mg/dLSODIUM 133.0 mmol/LPOTASSIUM 3.90 mmol/LCHLORIDE 99.0 mmol/LCO2 24.0 mmol/LBUN 17.0 mg/dLCREATININE 1.10 mg/dLSGOT/AST 25.0 IU/LSGPT/ALT 21.0 IU/LALK PHOS 84.0 IU/LTOTAL PROTEIN 7.30 g/dLALBUMIN 4.40 g/dLTOTAL BILI 0.70 mg/dLCALCIUM 9.80 mg/dLeGFR >60 mL/min/1.73 m2 11/19/2010 9:52 AM GLUCOSE 102.0 mg/dLSODIUM 135.0 mmol/LPOTASSIUM 4.40 mmol/LCHLORIDE 98.0 mmol/LCO2 26.0 mmol/LBUN 15.0 mg/dLCREATININE 0.90 mg/dLSGOT/AST 18.0 IU/LSGPT/ALT 14.0 IU/LALK PHOS 58.0 IU/LTOTAL PROTEIN 6.90 g/dLALBUMIN 4.30 g/dLTOTAL BILI 0.60 mg/dLCALCIUM 9.80 mg/dLeGFR >60 mL/min/1.73 m2 01/30/2011 11:10 AM PSA TOTAL 1.870 ng/mL 08/14/2011 10:30 AM WBC 5.3 RBC 4.39 HGB 13.40 g/dLHCT 38.50 %MCV 88.0 fLMCH 30.50 pgMCHC 34.80 g/dLRDW CV 12.60 %MPV 9.50 fLPLT 119 %NEUT 52.10 %%LYMP 36.20 %%MONO 9.20 %%EOS 2.30 %%BASO 0.20 %#NEUT 2.78 #LYMP 1.93 #MONO 0.49 #EOS 0.12 #BASO 0.01 GLUCOSE 95.0 mg/dLSODIUM 126.0 mmol/LPOTASSIUM 4.30 mmol/LCHLORIDE 91.0 mmol/LCO2 26.0 mmol/LBUN 18.0 mg/dLCREATININE 0.90 mg/dLSGOT/AST 18.0 IU/LSGPT/ALT 14.0 IU/LALK PHOS 62.0 IU/LTOTAL PROTEIN 6.80 g/dLALBUMIN 4.10 g/dLTOTAL BILI 0.80 mg/dLCALCIUM 9.50 mg/dLeGFR >60 mL/min/1.73 m2CPK 97 IU/LTRIGLYCERIDES 67.0 mg/dLCHOLESTEROL 197.0 mg/dLHDL 69.0 mg/dLLDL (CALC) 115.0 mg/dLMAGNESIUM 1.80 mg/dL 08/21/2011 11:17 AM GLUCOSE 114.0 mg/dLSODIUM 129.0 mmol/LPOTASSIUM 4.60 mmol/LCHLORIDE 93.0 mmol/LCO2 26.0 mmol/LBUN 15.0 mg/dLCREATININE 0.90 mg/dLSGOT/AST 25.0 IU/LSGPT/ALT 15.0 IU/LALK PHOS 71.0 IU/LTOTAL PROTEIN 6.40 g/dLALBUMIN 3.90 g/dLTOTAL BILI 0.60 mg/dLCALCIUM 9.30 mg/dLeGFR >60 mL/min/1.73 m2 03/11/2012 11:45 AM GLUCOSE 121.0 mg/dLSODIUM 125.0 mmol/LPOTASSIUM 4.50 mmol/LCHLORIDE 92.0 mmol/LCO2 23.0 mmol/LBUN 22.0 mg/dLCREATININE 1.10 mg/dLCALCIUM 9.80 mg/dLeGFR 60 WBC 6.2 RBC 4.30 HGB 13.10 g/dLHCT 37.20 %MCV 87.0 fLMCH 30.50 pgMCHC 35.20 g/dLRDW CV 12.90 %MPV 10.20 fLPLT 167 %NEUT 62.10 %%LYMP 26.30 %%MONO 9.60 %%EOS 1.80 %%BASO 0.20 %#NEUT 3.83 #LYMP 1.62 #MONO 0.59 #EOS 0.11 #BASO 0.01 TSH 1.970 uIU/mL 03/11/2012 1:23 PM NA UR RANDOM 26.0 mmol/LCREAT UR RAND 81.0 mg/dL 03/12/2012 4:13 PM WBC 6.2 RBC 3.09 HGB 9.70 g/dLHCT 28.20 %MCV 91.0 fLMCH 31.40 pgMCHC 34.40 g/dLRDW CV 14.0 %MPV 10.50 fLPLT 335 %NEUT 26.90 %%LYMP 55.90 %%MONO 14.30 %%EOS 2.60 %%BASO 0.30 %#NEUT 1.68 #LYMP 3.48 #MONO 0.89 #EOS 0.16 #BASO 0.02 EOS 4.0 % 03/19/2012 10:36 AM GLUCOSE 108.0 mg/dLSODIUM 133.0 mmol/LPOTASSIUM 4.30 mmol/LCHLORIDE 98.0 mmol/LCO2 25.0 mmol/LBUN 14.0 mg/dLCREATININE 1.10 mg/dLCALCIUM 9.60 mg/dLeGFR 60 03/20/2012 8:35 AM GLUCOSE 92.0 mg/dLSODIUM 130.0 mmol/LPOTASSIUM 3.90 mmol/LCHLORIDE 96.0 mmol/LCO2 24.0 mmol/LBUN 14.0 mg/dLCREATININE 0.90 mg/dLCALCIUM 9.80 mg/dLeGFR 60 07/29/2013 8:55 AM WBC 5.3 RBC 4.44 HGB 13.70 g/dLHCT 39.50 %MCV 89.0 fLMCH 30.90 pgMCHC 34.70 g/dLRDW CV 13.40 %MPV 9.50 fLPLT 115 %NEUT 55.30 %%LYMP 31.80 %%MONO 10.50 %%EOS 2.20 %%BASO 0.20 %#NEUT 2.95 #LYMP 1.70 #MONO 0.56 #EOS 0.12 #BASO 0.01 TRIGLYCERIDES 47.0 mg/dLCHOLESTEROL 163.0 mg/dLHDL 68.0 mg/dLLDL (CALC) 86.0 mg/dLGLUCOSE 104.0 mg/dLSODIUM 132.0 mmol/LPOTASSIUM 3.90 mmol/LCHLORIDE 98.0 mmol/LCO2 26.0 mmol/LBUN 11.0 mg/dLCREATININE 0.90 mg/dLSGOT/AST 21.0 IU/LSGPT/ALT 18.0 IU/LALK PHOS 94.0 IU/LTOTAL PROTEIN 6.70 g/dLALBUMIN 4.10 g/dLTOTAL BILI 1.0 mg/dLCALCIUM 9.80 mg/dLeGFR >60 mL/min/1.73 m2 08/26/2013 8:15 AM PSA TOTAL 2.390 ng/mL 09/21/2014 8:12 AM WBC 5.6 RBC 4.50 HGB 13.40 g/dLHCT 39.70 %MCV 88.0 fLMCH 29.80 pgMCHC 33.80 g/dLRDW CV 13.50 %MPV 10.0 fLPLT 129 %NEUT 60.10 %%LYMP 29.40 %%MONO 8.70 %%EOS 1.40 %%BASO 0.40 %#NEUT 3.39 #LYMP 1.66 #MONO 0.49 #EOS 0.08 #BASO 0.02 GLUCOSE 89.0 mg/dLSODIUM 138.0 mmol/LPOTASSIUM 3.60 mmol/LCHLORIDE 101.0 mmol/LCO2 24.0 mmol/LBUN 13.0 mg/dLCREATININE 0.90 mg/dLSGOT/AST 17.0 IU/LSGPT/ALT 12.0 IU/LALK PHOS 77.0 IU/LTOTAL PROTEIN 6.90 g/dLALBUMIN 4.0 g/dLTOTAL BILI 0.50 mg/dLCALCIUM 9.60 mg/dLeGFR >60 mL/min/1.73 [id number] 73.0 mg/dLCHOLESTEROL 170.0 mg/dLHDL 58.0 mg/dLLDL (CALC) 97.0 mg/dLURIC ACID 5.6 mg/dL 09/29/2014 10:45 AM C DIFFICILE NAAT NEGATIVE WBC STOOL FEW WBC SEEN WBC STOOL FEW WBC SEEN History Of Immunizations Name Date Admin Mfg Name Mfg Code Trade Name Lot# Route Inj Vis Given Vis Pub CVX Td 11/09/2010 sanofi pasteur PMC BOOSTRIX [id number] Intramuscular Left Arm 11/09/2010 01/29/2008 999 Influenza 05/26/2012 sanofi pasteur PMC Fluzone [id number] Intramuscular Left Deltoid 05/26/2012 12/30/2011 141 Influenza 03/30/2013 sanofi pasteur PMC Fluzone [id number] Intramuscular Left Deltoid 03/30/2013 01/09/2013 141 History of Past Illness Name Date of Onset Comments Hypertension Sep 27 2009 10:24AM Hyperlipidemia, unspecified Sep 27 2009 10:24AM Hypertension Hyperlipidemia carotid artery disease Actinic Keratosis Atopic Dermatitis Anxiety Hypertension Nov 07 2009 3:28PM Hyperlipidemia, unspecified Nov 07 2009 3:28PM Atopic Dermatitis Nov 07 2009 3:28PM Actinic Keratosis Nov 07 2009 3:28PM Low Back Pain 05/22/2011 Hypertension Dec 06 2009 10:54AM Hypertension [...] 10:36AM Wound infection Jan 30 2011 10:36AM Rectal bleeding Apr 01 2011 2:57PM Diverticulosis [...] 2015 9:50AM Anxiety Mar 07 2015 9:50AM Payers Insurance Name Company Name Plan Name Plan Number Policy Number Policy Group Number Start Date [employer] [facility] [facility] [id number] N/A Medicare Part B Medicare [facility] [place] [id number] N/[id number] June Medicare Part A Medicare Part A [id number] N/A [facility] [id number] June History of Encounters Visit Date Visit Type Provider 03/07/2015 Office visit Sixto Charlton MD 01/17/2015 [...] Office visit Sixto Charlton MD 03/28/2012 Hospital Frida Smith MD 03/27/2012 [facility] Frida Smith MD 03/11/2012 Office visit Sixto Charlton MD 03/09/2012 Hospital Elham Arcos MD 01/15/2012 Office visit Sixto Charlton MD 08/14/2011 Office visit Jane Astudillo APRN 05/22/2011 Office visit Sixto Charlton MD 04/24/2011 Office visit Loyd Hester MD 04/11/2011 Hospital Loyd Hester MD 04/01/2011 Office visit Loyd Hester MD 01/30/2011 Office visit Jane Astudillo APRN 11/19/2010 Hospital Elham Arcos MD 11/19/2010 Office visit Jane Astudillo DICTAPHONE TECHNICIAN 11/09/2010 Office visit Elham PIKE 11/07/2010 Office [...]
[2018-12-09] MEDS ORDERED: LACTATED RINGERS 1,000 ML IV PRN (06:37)
--- OUTSIDE RECORDS SUMMARY | 2018-12-09 06:37 | XMS REPORT ---
Author Author Sixto Charlton [facility] Address [address] [place], [place] [id number] Care Team Providers Care Bioengineer Name Role Phone PCP Unavailable pharmacy, right source Unavailable Unavailable Allergies and Adverse Reactions Name Reaction Notes simvastatin Plan of Treatment Planned Activity Comments Planned Date Planned Time Plan/Goal METABOLIC PANEL TOTAL CA 08/22/2011 12:00 AM Carotid Sono 03/30/2013 12:00 AM COMPLETE CBC W/AUTO DIFF WBC 03/30/2013 12:00 AM COMPREHEN METABOLIC PANEL 03/30/2013 12:00 AM LIPID PANEL 03/30/2013 12:00 AM LEUKOCYTE ASSESSMENT FECAL 09/27/2014 12:00 AM Medications Active Name Start Date Estimated Completion Date SIG Comments Niacin Oral Zantac Oral tablet 150 mg 07/09/2012 take 1 tablet (150 mg) by oral route 2 times per day aspirin Oral tablet 325 mg 01/20/2013 take 1 tablet daily betamethasone dipropionate topical cream 0.05 % 08/02/2013 apply a thin layer to the affected area(s) by topical route once daily catheter miscellaneous [facility] 14-16 Fr-" 11/25/2013 use as directed amlodipine Oral tablet 10 mg 05/19/2014 05/14/2015 TAKE ONE TABLET BY MOUTH EVERY DAY for 90 days benazepril Oral tablet 20 mg 05/19/2014 05/14/2015 TAKE ONE TABLET BY MOUTH EVERY DAY for 90 days Plavix Oral Tablet 75 mg 05/19/2014 05/14/2015 take 1 tablet (75 mg) by oral route once daily pravastatin oral tablet 40 mg 05/19/2014 05/14/2015 take 1 tablet (40 mg) by oral route daily for 90 days diazepam oral tablet 5 mg 08/22/2014 take 1 tablet (5 mg) by oral route 2 times per day for 90 days Imdur oral tablet extended release 24 hr 30 mg 09/20/2014 09/15/2015 take 1 tablet (30 mg) by oral route once daily in the morning for 90 days Flomax oral capsule,extended release 24hr 0.4 mg 09/20/2014 12/14/2015 take 1 capsule (0.4 mg) by oral route once daily 1/2 hour following the same meal each day for 90 days tramadol oral tablet 50 mg 10/03/2014 TAKE ONE TABLET BY MOUTH EVERY 6 HOURS NEEDED Proscar oral tablet 5 mg 11/30/2014 10/26/2015 take 1 tablet (5 mg) by oral route once daily for 30 days Nitrostat sublingual tablet, sublingual 0.4 mg 01/16/2015 04/10/2016 PLACE ONE TABLET UNDER TONGUE EVERY 5 MINUTES FOR THREE DOSES NEEDED FOR CRUSHING Prilosec oral capsule,delayed release(DR/EC) 40 mg 01/17/2015 03/18/2015 take 1 capsule by oral route daily for 30 days Name Start Date Expiration Date SIG Comments Hydrocortisone Topical Lotion 2.5 % 11/07/2009 11/21/2009 Flomax Oral Capsule, Sust. Release 24 hr 0.4 mg 11/09/2009 11/04/2010 take 1 capsule (0.4 mg) by oral route once daily 1/2 hour following the same meal each day for 90 days Lortab Oral Tablet 10-500 mg 05/07/2010 07/06/2010 take 1 tablet by oral route every 6 hours as needed for pain for 30 days Bactroban Topical Ointment 2 % 10/29/2010 11/05/2010 apply a small amount to the affected area by topical route 3 times per day for 7 days Bactrim DS Oral Tablet 800-160 mg 11/09/2010 11/16/2010 take 1 tablet by oral route every 12 hours for 7 days atenolol Oral Tablet 50 mg 12/24/2010 03/24/2011 TAKE ONE TABLET BY MOUTH EVERY DAY Bactrim DS Oral Tablet 800-160 mg 01/30/2011 02/09/2011 take 1 tablet by oral route every 12 hours for 10 days amitriptyline Oral tablet 25 mg 01/02/2012 04/01/2012 TAKE ONE TABLET BY MOUTH AT BEDTIME amoxicillin Oral capsule 500 mg 07/03/2012 07/10/2012 take 1 capsule (500 mg) by oral route every 8 hours for 7 days Zithromax Z-Seferino Oral Tablet 250 mg 08/10/2012 08/20/2012 take 2 tablets (500 mg) by oral route once daily for 1 day then 1 tablet (250 mg) by oral route once daily for 4 days tramadol Oral tablet 50 mg 11/30/2012 12/20/2012 TAKE 1 TABLET BY MOUTH EVERY 4- 6 HOURS NEEDED FOR PAIN atenolol Oral tablet 25 mg 03/30/2013 04/29/2013 take 1 tablet (25 mg) by oral route once daily for 30 days hydrocodone-acetaminophen oral tablet 5-325 mg 07/28/2013 2013 take 1 tablet by oral route every 6 hours as needed for pain for 15 days Cipro oral tablet 500 mg 01/17/2014 01/24/2014 take 1 tablet (500 mg) by oral route every 12 hours for 7 days Levaquin oral tablet 500 mg 08/08/2014 08/15/2014 take 1 tablet (500 mg) by oral route once daily for 7 days Discontinued Name Start Date Discontinued Date SIG Comments Amitriptyline Oral Tablet 10 mg 01/04/2010 take 1 tablet by oral route daily deleted Fish Oil Oral Capsule 1,000 mg 01/20/2013 take 3 capsules by oral route daily Westcort Topical Cream 0.2 % 11/07/2009 07/17/2010 apply to affected area(s) by topical route 2 times per day Atenolol Oral Tablet 50 mg 02/07/2010 04/05/2010 take 1 tablet by oral route 2 times a day for 90 days Ronnie Oral Tablet 10-40 mg 07/09/2010 11/19/2010 take 1 tablet by oral route once daily Zithromax Z-Seferino Oral Tablet 250 mg 06/09/2012 take 2 tablets (500 mg) by oral route once daily for 1 day then 1 tablet (250 mg) by oral route once daily for 4 days hydrocodone-acetaminophen Oral tablet 5-500 mg 05/26/2012 06/09/2012 take 1 tablet by oral route every 6 hours as needed for pain for 30 days diazepam Oral tablet 5 mg 06/09/2012 03/03/2013 take 1 tablet by oral route 4 times a day for 30 days deleted diazepam oral tablet 5 mg 03/03/2013 03/03/2013 TAKE 1 TABLET BY MOUTH FOUR TIMES A DAY deleted Ultram oral tablet 50 mg 04/21/2014 10/07/2014 take 1 tablet (50 mg) by oral route every 6 hours as needed Problem List Description Status Onset Actinic keratosis Active Atopic Dermatitis Active carotid artery disease Active Hyperlipidemia Active Hypertension Active Anxiety Active Low Back Pain Active 05/22/2011 Vital Signs Date Time BP-Sys(mm[Hg] BP-Debbie(mm[Hg]) HR(bpm) RR(rpm) Temp WT HT HC BMI BSA BMI Percentile O2 Sat(%) 01/17/2015 9:16:00 AM 108 mmHg 60 mmHg [...] 12:00 AM METABOLIC PANEL TOTAL CA Returned 09/27/2009 12:00 AM COMPLETE CBC W/AUTO DIFF WBC Reviewed 09/27/2009 12:00 AM COMPREHEN METABOLIC PANEL Reviewed 09/27/2009 12:00 AM LIPID PANEL Reviewed 07/28/2013 12:00 AM COMPLETE CBC W/AUTO [...] 10/29/2010 12:00 AM THER/PROPH/DIAG INJ SC/IM Reviewed 11/09/2010 12:00 AM THER/PROPH/DIAG INJ SC/IM [...] 09/27/2014 12:00 AM CLOSTRIDIUM AG EIA Reviewed 01/30/2011 12:00 AM ASSAY OF PSA [...] BILI 0.50 mg/dLCALCIUM 9.60 mg/dLeGFR >60 mL/min/1.73 [id number] 73.0 mg/dLCHOLESTEROL 170.0 mg/dLHDL 58.0 mg/dLLDL (CALC) 97.0 mg/dLURIC ACID 5.6 mg/dL 09/29/2014 10:45 AM C DIFFICILE NAAT NEGATIVE WBC STOOL FEW WBC SEEN WBC STOOL FEW WBC SEEN History Of Immunizations Name Date Admin Mfg Name Mfg Code Trade Name Lot# Route Inj Vis Given Vis Pub CVX Td 11/09/2010 [employer] pasteur PMC BOOSTRIX [id number] Intramuscular Left Arm 11/09/2010 01/29/2008 999 Influenza 05/26/2012 [employer] pasteur PMC Fluzone [id number] Intramuscular Left Deltoid 05/26/2012 12/30/2011 141 Influenza 03/30/2013 sanofi pasteur PMC Fluzone [id number] Intramuscular Left Deltoid 03/30/2013 01/09/2013 141 History of Past Illness Name Date of Onset Comments Hypertension Sep 27 2009 10:24AM Hyperlipidemia, unspecified Sep 27 2009 10:24AM Hypertension Hyperlipidemia carotid artery disease Actinic keratosis Atopic Dermatitis Anxiety Hypertension Nov 07 2009 [...] 9:24AM Gastric bleed Jan 17 2015 9:24AM Payers Insurance Name Company Name Plan Name Plan Number Policy Number Policy Group Number Start Date [employer] [facility] [facility] [id number] N/A Medicare Part B Medicare [facility] [id number] N/A [id number] June Medicare Part A Medicare Part A [id number] N/A [facility] [id number] June History of Encounters Visit Date Visit Type Provider 01/17/2015 Office visit Sixto Charlton MD 10/07/2014 [...] MD 03/28/2012 Hospital Frida Smith MD 03/27/2012 Hospital Frida Smith MD 03/11/2012 Office visit Sixto Charlton MD 03/09/2012 [facility] Elham Arcos MD 01/15/2012 Office visit Sixto Charlton MD 08/14/2011 Office visit Jane Astudillo APRN 05/22/2011 Office visit Sixto Charlton MD 04/24/2011 Office visit Loyd Hester MD 04/11/2011 [facility] Loyd Hester MD 04/01/2011 Office visit Loyd Hester MD 01/30/2011 Office visit Jane Astudillo MARKETING OPERATIONS MANAGER 11/19/2010 Office visit Jane Astudillo MARKETING OPERATIONS MANAGER 11/19/2010 Hospital Elham Arcos MD 11/09/2010 Office visit Elham PIKE 11/07/2010 Office visit Elham PIKE 10/31/2010 Office visit Jane Astudillo MARKETING OPERATIONS MANAGER 10/29/2010 Office visit Jane Astudillo MARKETING OPERATIONS MANAGER 10/25/2010 Office visit Sixto Charlton MD 07/17/2010 [...]
--- OUTSIDE RECORDS SUMMARY | 2018-12-09 06:39 | XMS REPORT ---
Author Author John Curiel Organization [facility] Address [address] [place], [place] [id number] Care Team Providers Care Transmission Rebuilder Name Role Phone John Curiel PCP Unavailable pharmacy, right source Unavailable Unavailable RomanruthySixto wagner PreferredProvider Allergies and Adverse Reactions Name Reaction Notes simvastatin Plan of Treatment Planned Activity Comments Planned Date Planned Time Plan/Goal Culture + susceptibility 07/15/2017 12:00 AM Carotid Sono 03/30/2013 12:00 AM CBC With Auto Differential 03/30/2013 12:00 AM CMP 03/30/2013 12:00 AM Lipid Profile 03/30/2013 12:00 AM Flu Injection 3 Years And Above [facility]# [address]-43 [facility] 04/04/2014 12:00 AM Stool leukocyte detection [...] 06/05/2017 TAKE 1 TABLET ONE TIME DAILY Plavix 75 mg oral tablet 06/05/2017 TAKE 1 TABLET ONE TIME DAILY pravastatin 40 mg oral tablet 06/05/2017 TAKE 1 TABLET EVERY DAY diazepam 5 mg oral tablet 06/05/2017 take 1 tablet by oral route 2 times a day as needed finasteride 5 mg oral tablet 06/05/2017 TAKE 1 TABLET ONE TIME DAILY Flomax 0.4 mg oral capsule,extended release 24hr [...] same meal each day for 90 days Plavix 75 mg oral tablet 06/05/2015 05/30/2016 take 1 tablet (75 mg) by oral route once daily pravastatin 40 mg oral tablet 06/05/2015 05/30/2016 take 1 tablet (40 mg) by oral route daily for 90 days finasteride 5 mg oral tablet 06/06/2015 05/31/2016 take 1 tablet (5 mg) by oral route once daily for 90 days benazepril 20 mg oral tablet 01/17/2016 01/11/2017 take 0.5 tablet by oral route 2 times a day for 90 days Levaquin 500 mg oral [...] daily in the morning for 90 days Problem List Description Status Onset Actinic keratosis Active Atopic dermatitis Active carotid artery disease Active Hyperlipidemia Active Hypertension Active Anxiety Active Low back pain Active 05/22/2011 Vital Signs Date Time BP-Sys(mm[Hg] BP-Debbie(mm[Hg]) HR(bpm) RR(rpm) Temp WT HT HC BMI BSA BMI Percentile O2 Sat(%) 07/15/2017 10:07:00 AM 138 mmHg 70 mmHg 78 bpm 18 rpm 150 lbs 66 in 24.21 kg/m2 1.78 m2 98 % 03/18/2017 10:20:00 AM 136 mmHg 74 mmHg 62 bpm 18 rpm 96.7 F 168.5 lbs 66 in 27.1963 kg/m 1.8866 m 98 % 02/17/2017 1:28:00 PM 134 mmHg 72 mmHg 66 bpm 18 rpm 98.3 F 168.375 lbs 66 in 27.18 kg/m2 1.89 m2 98 % 06/05/2016 10:19:00 AM 146 mmHg 80 mmHg 76 bpm 16 rpm 96.8 F 170 lbs 66 in 27.4384 kg/m 1.8949 m 97 % 04/15/2016 2:53:00 PM 122 mmHg 64 mmHg 68 bpm 18 rpm 98.3 F 171 lbs 68 in 26.00 kg/m2 1.93 m2 97 % 01/17/2016 11:40:00 AM 122 mmHg 60 mmHg 66 bpm 18 rpm 97.2 F 169 lbs 68 in 25.6961 kg/m 1.9178 m 97 % 11/20/2015 2:09:00 PM 138 mmHg 66 mmHg 57 bpm 16 rpm 97.7 F 169 lbs 68 in 25.70 kg/m2 1.92 m2 98 % 07/11/2015 9:34:00 AM 132 mmHg 60 mmHg 66 bpm 18 rpm 97.5 F 160 lbs 68 in 24.3277 kg/m 1.866 m 96 % 03/07/2015 9:39:00 AM 145 mmHg [...] 155 lbs 68 in 23.5674 kg/m 1.8366 03/11/2012 10:27:00 AM 110 mmHg 60 mmHg [...] AM Flu Injection 3 Years And Above [facility]# [address]-31 C Reviewed 09/27/2009 12:00 AM COMPLETE CBC W/AUTO DIFF WBC Reviewed 09/27/2009 12:00 AM COMPREHEN METABOLIC PANEL Reviewed 09/27/2009 12:00 AM LIPID PANEL Reviewed 08/10/2012 12:00 AM Depo-Medrol 80 Mg Im/C'tara Reviewed 08/10/2012 12:00 AM Decadron, Per 1 Mg [facility]# [address]-73 Reviewed 03/30/2013 12:00 AM Flu Injection 3 Years And Above [facility]# [address]-30 [facility] Reviewed 07/28/2013 12:00 AM COMPLETE CBC [...] Reviewed 10/29/2010 12:00 AM Renan, 1 gm, [facility] [address]-63-Exxgtcnt Reviewed 11/09/2010 12:00 AM THER/PROPH/DIAG INJ SC/IM [...] CVX Td 11/09/2010 sanofi pasteur PMC BOOSTRIX [id number] Intramuscular Left Arm 11/09/2010 01/29/2008 999 Influenza 05/26/2012 sanofi pasteur PMC Fluzone [id number] Intramuscular Left Deltoid 05/26/2012 12/30/2011 141 Influenza 03/30/2013 sanofi pasteur PMC Fluzone [id number] Intramuscular Left Deltoid 03/30/2013 01/09/2013 141 Influenza 05/07/2016 Not Entered NE Fluarix Quadrivalent [id number] Intramuscular Left Arm 05/07/2016 06/30/2017 141 History [...] 11:02AM Urinary retention Jul 15 2017 10:39AM Payers Insurance Name Company Name Plan Name Plan Number Policy Number Policy Group Number Start Date Humana Humana Claims [place] [id number] N/A Medicare Part A Medicare - Lab/Xray [id number] N/A Medicare Part B Medicare [facility] [id number] N/A BCBS [employer] [facility] [id number] June Medicare Part A Medicare Part A [id number] N/A [facility] [id number] June History of Encounters Visit Date Visit Type Provider 07/15/2017 Office visit John Curiel MD 06/19/2017 Hospital Refugio Craig MD 06/19/2017 [...] visit Sixto Charlton MD 07/28/2013 Office visit Sixot Charlton MD 05/20/2013 Office visit Sixto Charlton MD 03/30/2013 Office visit Sixto Charlton MD 01/20/2013 Office visit Sixto Charlton MD 08/10/2012 Office visit Sxito Charlton MD 07/09/2012 Office visit Sixto Charlton [...] Hester MD 01/30/2011 Office visit Jane Astudillo CORE DRILLING SUPERVISOR 11/19/2010 Hospital Elham Arcos MD 11/19/2010 Office visit Jane Baudilio CORE DRILLING SUPERVISOR 11/09/2010 Office visit Elham PIKE 11/07/2010 Office visit Elham PIKE 10/31/2010 Office visit Jane Astudillo CORE DRILLING SUPERVISOR 10/29/2010 Office visit Jane Astudillo CORE DRILLING SUPERVISOR 10/25/2010 Office visit Sixto Charlton MD [...] Sixto Charlton MD 09/27/2009 Office visit Sixto hCarlton MD 04/13/2009 Nurse visit Sixto Charlton MD 04/03/2009 Office visit Sixto Charlton MD 02/20/2009 Office visit Sixto Charlton MD
--- OUTSIDE RECORDS SUMMARY | 2018-12-09 06:40 | XMS REPORT ---
Author Author John Curiel [facility] Address [address] [place], [place] [id number] Care Team Providers Care Foreclosure Field Inspector Name Role Phone John Curiel PCP Unavailable pharmacy, right source Unavailable Unavailable Jesicakristy Sixto PreferredProvider Allergies and Adverse Reactions Name Reaction Notes simvastatin Plan of Treatment Planned Activity Comments Planned Date Planned Time Plan/Goal Carotid Sono 03/30/2013 12:00 AM CBC With Auto Differential 03/30/2013 12:00 AM CMP 03/30/2013 12:00 AM Lipid Profile 03/30/2013 12:00 AM Flu Injection 3 Years And Above [facility]# [address]-00 [facility] 04/04/2014 12:00 AM Stool leukocyte [...] AM Flu Injection 3 Years And Above [facility]# [address]-45 R[facility] Reviewed 09/27/2009 12:00 AM COMPLETE CBC W/AUTO DIFF WBC Reviewed 09/27/2009 12:00 AM COMPREHEN METABOLIC PANEL Reviewed 09/27/2009 12:00 AM LIPID PANEL Reviewed 07/15/2017 12:00 AM MICROBIOLOGY PROCEDURE Reviewed 08/10/2012 12:00 AM Depo-Medrol 80 Mg Im/C'tara Reviewed 08/10/2012 12:00 AM Decadron, Per 1 Mg [facility]# [address]-46 Reviewed 03/30/2013 12:00 AM Flu Injection 3 Years And Above [facility]# [address]-11 C Reviewed 07/28/2013 12:00 AM COMPLETE CBC [...] Reviewed 10/29/2010 12:00 AM Renan, 1 gm, [facility] [address]-73-Amnrdejp Reviewed 11/09/2010 12:00 AM THER/PROPH/DIAG INJ SC/IM [...] CVX Td 11/09/2010 sanofi pasteur PMC BOOSTRIX [id number] Intramuscular Left Arm 11/09/2010 01/29/2008 999 Influenza 05/26/2012 sanofi pasteur PMC Fluzone [id number] Intramuscular Left Deltoid 05/26/2012 12/30/2011 141 Influenza 03/30/2013 sanofi pasteur PMC Fluzone [id number] Intramuscular Left Deltoid 03/30/2013 01/09/2013 141 Influenza 05/07/2016 Not Entered NE Fluarix Quadrivalent [id number] Intramuscular Left Arm 05/07/2016 06/30/2017 141 History [...] 10:11AM Drug therapy Jul 15 2017 10:11AM Payers Insurance Name Company Name Plan Name Plan Number Policy Number Policy Group Number Start Date Humana Humana Claims Center [id number] N/A Medicare Part A Medicare - Lab/Xray [id number] N/A Medicare Part B Medicare Of [place] [id number] N/A BCBS [employer] [facility] [id number] June Medicare Part A Medicare Part A [id number] N/A [facility] [id number] June History of Encounters Visit Date Visit Type Provider 07/15/2017 Office visit John Curiel MD 06/19/2017 Hospital Refugio Craig MD 06/19/2017 Surgery John Cureil MD 03/18/2017 Office visit Sixto Charlton MD [...] MD 03/28/2012 Hospital Deja James MD 03/27/2012 [facility] DEJA JAMES MD 03/11/2012 Office visit Sixto Charlton MD 03/09/2012 Hospital Elham Arcos MD 01/15/2012 Office visit Sixto Charlton MD 08/14/2011 Office visit Jane Astudillo ACID CONDITIONING WORKER 05/22/2011 Office visit Sixto Charlton MD 04/24/2011 Office visit Loyd Hester MD 04/11/2011 Hospital Loyd Hester MD 04/01/2011 Office visit Loyd Hester MD 01/30/2011 Office visit Jane Astudillo ACID CONDITIONING WORKER 11/19/2010 [facility] Elham Arcos MD 11/19/2010 Office visit Jane Astudillo ACID CONDITIONING WORKER 11/09/2010 Office visit Elham PIKE 11/07/2010 Office visit Elham PIKE 10/31/2010 Office visit Jane Astudillo ACID CONDITIONING WORKER 10/29/2010 Office visit Jane Astudillo ACID CONDITIONING WORKER 10/25/2010 Office visit Sixto Charlton MD [...]
--- OUTSIDE RECORDS SUMMARY | 2018-12-09 06:41 | XMS REPORT ---
Author Author Sixto Charlton [facility] Address [address] [place], [place] [address] Care Team Providers Care Pipe Line Gauger Name Role Phone Sixto Charlton PCP pharmacy, [...] Years And Above [facility]# [address]-93 [facility] 04/04/2014 12:00 [...] NEEDED 4 Wheeled Walker 10/23/2017 as directed Name Start Date Expiration Date SIG Comments [...] HC BMI BSA BMI Percentile O2 Sat(%) 10/23/2017 1:21:00 PM 116 mmHg 74 mmHg 65 bpm 18 rpm 98.1 F 155.5 lbs 66 in 25.0981 kg/m 1.8123 m 99 % 07/15/2017 10:07:00 AM [...] Years And Above [facility]# [address]-69 R[facility] Reviewed 09/27/2009 12:00 AM COMPLETE CBC W/AUTO DIFF WBC Reviewed 09/27/2009 12:00 AM COMPREHEN METABOLIC PANEL Reviewed 09/27/2009 12:00 AM LIPID PANEL Reviewed 07/15/2017 12:00 AM MICROBIOLOGY PROCEDURE Reviewed 08/10/2012 12:00 AM Depo-Medrol 80 Mg Im/C'tara Reviewed 08/10/2012 12:00 AM Decadron, Per 1 Mg [facility]# [address]-41 Reviewed 03/30/2013 12:00 AM Flu Injection 3 Years And Above [facility]# [address]-61 R[facility] Reviewed 07/28/2013 12:00 AM COMPLETE CBC W/AUTO [...] Renan, 1 gm, [facility] [address]-55-Hbljgecw Reviewed 11/09/2010 12:00 AM THER/PROPH/DIAG INJ SC/IM [...] CVX Td 11/09/2010 sanofi pasteur PMC BOOSTRIX [id number] Intramuscular Left Arm 11/09/2010 01/29/2008 999 Influenza 05/26/2012 sanAstrum Solar pasteur PMC FLUZONE [id number] Intramuscular Left Deltoid 05/26/2012 12/30/2011 141 Influenza 03/30/2013 sanofi pasteur PMC FLUZONE [id number] Intramuscular Left Deltoid 03/30/2013 01/09/2013 141 Influenza 05/07/2016 Not Entered NE Fluarix, quadrivalent, preservative free [id number] Intramuscular Left Arm 05/07/2016 06/30/2017 141 History [...] 1:22PM Actinic keratitis Oct 23 2017 1:38PM Payers Insurance Name Company Name Plan Name Plan Number Policy Number Policy Group Number Start Date Humana Humana Claims Center [id number] N/A Medicare Part A Medicare - Lab/Xray [id number] N/A Medicare Part B Medicare Of [place] [id number] N/A BCBS [facility] [id number] June Medicare Part A Medicare Part A [id number] N/A [facility] [id number] June History of Encounters Visit Date Visit Type Provider 10/23/2017 Office visit Sixto Charlton MD 08/14/2017 Hospital Elham Arcos MD 07/15/2017 Office visit John Curiel MD 06/19/2017 Hospital Elham Arcos MD 06/19/2017 [facility] Refugio Craig MD 06/19/2017 Surgery John Curiel MD 03/18/2017 Office visit Sixto Charlton MD 02/17/2017 Office visit Sixto Charlton MD 06/05/2016 Office visit Sixto Charlton MD 04/15/2016 Office visit Sixto Charlton MD 01/17/2016 Office visit Jane Astudillo ROOM SERVICE SUPERVISOR 11/20/2015 Office visit Sixto Charlton MD 07/11/2015 Office visit Sixto Charlton MD 03/07/2015 Office visit Sixto Charlton MD 01/17/2015 Office visit Sixto Charlton MD 10/07/2014 Office visit Sixto Charlton MD 09/20/2014 Office visit Sixto Charlton MD 04/04/2014 Office visit Sixto Charlton MD 03/08/2014 Office visit Sixto Charlton MD 12/28/2013 Office visit Sixto Charlton MD 11/25/2013 Office visit Sxito Charlton MD 07/28/2013 Office visit Sixto Charlton [...] Charlton MD 08/14/2011 Office visit Jane Astudillo ROOM SERVICE SUPERVISOR 05/22/2011 Office visit Sixto Charlton MD 04/24/2011 Office visit Loyd Hester MD 04/11/2011 [facility] Loyd Hester MD 04/01/2011 Office visit Loyd Hester MD 01/30/2011 Office visit Jane Astudillo ROOM SERVICE SUPERVISOR 11/19/2010 Hospital Elham Arcos MD 11/19/2010 Office visit Jane Astudillo ROOM SERVICE SUPERVISOR 11/09/2010 Office visit Elham PIKE 11/07/2010 Office visit Elham PIKE 10/31/2010 Office visit Jane Astudillo ROOM SERVICE SUPERVISOR 10/29/2010 Office visit Jane Astudillo ROOM SERVICE SUPERVISOR 10/25/2010 Office visit Sixto Charlton MD 07/17/2010 Office visit Sixto Charlton MD 05/07/2010 Office visit Sixto Charlton MD 04/10/2010 Office visit Sixto Charlton MD 04/05/2010 Office visit Sixto Charlton MD 03/28/2010 Office visit Sixto Cahrlton MD 03/19/2010 Office visit Sxito Charlton MD 02/21/2010 Procedures Loyd Hester MD 02/15/2010 Office visit Sixto Charlton MD 02/07/2010 Office visit Sixto Charlton MD 12/06/2009 Procedures Sixto Charlton MD 11/07/2009 Office visit Sixto Charlton MD 09/27/2009 Office visit Sixto Charlton MD 04/13/2009 Nurse visit Sixto Charlton MD 04/03/2009 Office visit Sixto Charlton MD 02/20/2009 Office visit Sixto Charlton MD
--- OUTSIDE RECORDS SUMMARY | 2018-12-09 06:43 | XMS REPORT ---
Author Author Sixto Charlton [facility] Address [address] [place], [place] [address] Care Team Providers Care Bench Assembler Battery Name Role Phone Sixto Charlton PCP Unavailable pharmacy, right source Unavailable Unavailable Sixto Charlton PreferredProvider Unavailable Allergies and Adverse Reactions Name Reaction Notes simvastatin Plan of Treatment Planned Activity Comments Planned Date Planned Time Plan/Goal Carotid Sono 03/30/2013 12:00 AM CBC With Auto Differential 03/30/2013 12:00 AM CMP 03/30/2013 12:00 AM Lipid Profile 03/30/2013 12:00 AM Flu Injection 3 Years And Above [facility]# [address]-53 [facility] 04/04/2014 12:00 AM Stool leukocyte [...] once daily tramadol 50 mg oral tablet 02/27/2016 TAKE ONE TABLET BY MOUTH EVERY 6 HOURS NEEDED amlodipine 5 mg oral tablet 04/10/2016 04/05/2017 take 1 tablet (5 mg) by oral route once daily for 90 days pravastatin 40 mg oral tablet 07/25/2016 TAKE 1 TABLET EVERY DAY benazepril 20 mg oral tablet 07/25/2016 TAKE 1 TABLET EVERY DAY Flomax 0.4 mg oral capsule,extended release 24hr 07/25/2016 TAKE 1 CAPSULE ONE TIME DAILY 30 MINUTES AFTER THE SAME MEAL EACH DAY finasteride 5 mg oral tablet 07/25/2016 TAKE 1 TABLET ONE TIME DAILY Plavix 75 mg oral tablet 09/10/2016 TAKE 1 TABLET ONE TIME DAILY Amitiza 8 mcg oral capsule 02/17/2017 02/24/2017 take 1 capsule (8 mcg) by oral route 2 times per day with food and water for 7 days diazepam 5 mg oral tablet 02/17/2017 take 1 tablet by oral route 2 times a day as needed Name Start Date Expiration Date SIG Comments [...] HC BMI BSA BMI Percentile O2 Sat(%) 02/17/2017 1:28:00 PM 134 mmHg 72 mmHg [...] 175 lbs 68 in 26.6084 kg/m 1.9515 98 % 01/30/2011 10:19:00 AM 150 mmHg [...] AM Flu Injection 3 Years And Above [facility]# [address]-70 [facility] Reviewed 09/27/2009 12:00 AM COMPLETE CBC W/AUTO DIFF WBC Reviewed 09/27/2009 12:00 AM COMPREHEN METABOLIC PANEL Reviewed 09/27/2009 12:00 AM LIPID PANEL Reviewed 08/10/2012 12:00 AM Depo-Medrol 80 Mg Im/C'tara Reviewed 08/10/2012 12:00 AM Decadron, Per 1 Mg [facility]# [address]-57 Reviewed 03/30/2013 12:00 AM Flu Injection 3 Years And Above [facility]# [address]-26 [facility] Reviewed 07/28/2013 12:00 AM COMPLETE [...] Reviewed 10/29/2010 12:00 AM Renan, 1 gm, [facility] [address]-31-Nbryromk Reviewed 11/09/2010 12:00 AM THER/PROPH/DIAG INJ SC/IM [...] 99 eGFR >60 mL/min/1.73 m2eGFR AA* >60 03/11/2012 11:45 AM GLUCOSE 121.0 mg/dLSODIUM 125.0 mmol/LPOTASSIUM 4.50 mmol/LCHLORIDE 92.0 mmol/LCO2 23.0 mmol/LBUN 22.0 mg/dLCREATININE 1.10 mg/dLCALCIUM 9.80 mg/dLAGE 76 GFR NonAA 65 GFR AA 79 eGFR 60 eGFR AA* 60 WBC 6.2 RBC 4.30 HGB 13.10 g/dLHCT 37.20 %MCV 87.0 fLMCH 30.50 pgMCHC 35.20 g/dLRDW SD 41 RDW CV 12.90 %MPV 10.20 fLPLT 167 NRBC# 0.00 NRBC% 0.0 %NEUT 62.10 %%LYMP 26.30 %%MONO 9.60 %%EOS 1.80 %%BASO 0.20 %#NEUT 3.83 #LYMP 1.62 #MONO 0.59 #EOS 0.11 #BASO 0.01 MANUAL DIFF NOT IND TSH 1.970 uIU/mL 03/11/2012 1:23 PM NA UR RANDOM 26.0 mmol/LCREAT UR RAND 81.0 mg/dLTOTAL VOLUME: U 03/12/2012 4:13 PM WBC 6.2 RBC 3.09 HGB 9.70 g/dLHCT 28.20 %MCV 91.0 fLMCH 31.40 pgMCHC 34.40 g/dLRDW SD 46 RDW CV 14.0 %MPV 10.50 fLPLT 335 NRBC# 0.00 NRBC% 0.0 %NEUT 26.90 %%LYMP 55.90 %%MONO 14.30 %%EOS 2.60 %%BASO 0.30 %#NEUT 1.68 #LYMP 3.48 #MONO 0.89 #EOS 0.16 #BASO 0.02 MANUAL DIFF SEE BELOW SEGS 35 BANDS 1 LYMPHS 50 MONOS 10 EOS 4.0 %RBC MORPH NORMAL 03/19/2012 10:36 AM GLUCOSE 108.0 mg/dLSODIUM 133.0 [...] WBC SEEN WBC STOOL FEW WBC SEEN 07/11/2015 10:30 AM WBC 7.2 RBC 4.69 [...] CVX Td 11/09/2010 sanofi pasteur PMC BOOSTRIX [id number] Intramuscular Left Arm 11/09/2010 01/29/2008 999 Influenza 05/26/2012 sanofi pasteur PMC Fluzone [id number] Intramuscular Left Deltoid 05/26/2012 12/30/2011 141 Influenza 03/30/2013 sanofi pasteur PMC Fluzone [id number] Intramuscular Left Deltoid 03/30/2013 01/09/2013 141 Influenza 05/07/2016 Not Entered NE Fluarix Quadrivalent [id number] Intramuscular Left Arm 05/07/2016 06/30/2016 141 History of Past Illness Name Date [...] Annual physical exam Feb 17 2017 1:31PM Payers Insurance Name Company Name Plan Name Plan Number Policy Number Policy Group Number Start Date Humana Humana Claims Center [id number] N/A Medicare Part A Medicare - Lab/Xray [id number] N/A Medicare Part B Medicare Of [place] [id number] [id number] June Medicare Part A Medicare Part A [id number] N/A [facility] [id number] June History of Encounters Visit Date Visit Type Provider 02/17/2017 Office visit Sixto Charlton MD 06/05/2016 [...] 03/11/2012 Office visit Sixto Charlton MD 03/09/2012 [facility] Elham Arcos MD 01/15/2012 Office visit Sixto Charlton MD 08/14/2011 Office visit Jane Astudillo ENOLOGIST 05/22/2011 Office visit Sixto Charlton MD 04/24/2011 Office visit Loyd Hester MD 04/11/2011 [facility] Loyd Hester MD 04/01/2011 Office visit Loyd Hester MD 01/30/2011 Office visit Jane Astudillo ENOLOGIST 11/19/2010 [facility] Elham Arcos MD 11/19/2010 Office visit Jane Astudillo ENOLOGIST 11/09/2010 Office visit Elham PIKE 11/07/2010 Office visit Elham PIKE 10/31/2010 Office visit Jane Astudillo ENOLOGIST 10/29/2010 Office visit Jane Astudillo ENOLOGIST 10/25/2010 Office visit Sixto Charlton MD 07/17/2010 [...]
--- OUTSIDE RECORDS SUMMARY | 2018-12-09 06:44 | XMS REPORT ---
Author Author Sixto Charlton [facility] Address [address] [place], [place] [address] Care Team Providers Care Clinical Associate Name Role Phone Sixto Charlton PCP Unavailable [...] affected area(s) by topical route once daily Proscar 5 mg oral tablet 03/07/2015 05/30/2016 take 1 tablet (5 mg) by oral route once daily for 90 days Nitrostat 0.4 mg sublingual tablet, sublingual 03/28/2015 place 1 tablet (0.4 mg) by sublingual route at the 1st sign of attack; may repeat every 5 min until relief; if pain persists after 3 tablets in 15 min, prompt medical attention is recommended Flomax 0.4 mg oral capsule,extended release 24hr 06/05/2015 08/28/2016 take 1 capsule (0.4 mg) by oral route once daily 1/2 hour following the same meal each day for 90 days benazepril 20 mg oral tablet 06/05/2015 05/30/2016 TAKE ONE TABLET BY MOUTH EVERY DAY for 90 days isosorbide mononitrate 30 mg oral tablet extended release 24 hr 06/05/2015 08/28/2016 take 1 tablet (30 mg) by oral route once daily in the morning for 90 days Plavix 75 mg oral tablet 06/05/2015 05/30/2016 take 1 tablet (75 mg) by oral route once daily pravastatin 40 mg oral tablet 06/05/2015 05/30/2016 take 1 tablet (40 mg) by oral route daily for 90 days finasteride 5 mg oral tablet 06/06/2015 05/31/2016 take 1 tablet (5 mg) by oral route once daily for 90 days amlodipine 5 mg oral tablet take 1 tablet (5 mg) by oral route once daily for 90 days tramadol 50 mg oral tablet 07/11/2015 TAKE ONE TABLET BY MOUTH EVERY 6 HOURS NEEDED diazepam 5 mg oral tablet 07/13/2015 take 1 tablet by oral route 2 times a day as needed aspirin 81 mg oral tablet,delayed release (DR/EC) 11/20/2015 take 1 tablet (81 mg) by oral route once daily Name Start Date Expiration Date SIG Comments [...] by oral route daily for 30 days Discontinued Name Start Date Discontinued Date [...] readings Problem List Description Status Onset Actinic keratosis Active Atopic dermatitis Active carotid artery disease Active Hyperlipidemia Active Hypertension Active Anxiety Active Low back pain Active 05/22/2011 Vital Signs Date Time BP-Sys(mm[Hg] BP-Debbie(mm[Hg]) HR(bpm) RR(rpm) Temp WT HT HC BMI BSA BMI Percentile O2 Sat(%) 11/20/2015 2:09:00 PM 138 mmHg 66 mmHg [...] 169 lbs 68 in 25.6961 kg/m 1.9178 07/28/2013 10:13:00 AM 142 mmHg 72 mmHg [...] 162 lbs 68 in 24.6318 kg/m 1.8776 06/09/2012 9:46:00 AM 140 mmHg 56 mmHg [...] 175 lbs 68 in 26.6084 kg/m 1.9515 08/14/2011 9:56:00 AM 130 mmHg 64 mmHg [...] AM Flu Injection 3 Years And Above [facility]# [address]-28 [facility] Reviewed 09/27/2009 12:00 AM COMPLETE CBC W/AUTO DIFF WBC Reviewed 09/27/2009 12:00 AM COMPREHEN METABOLIC PANEL Reviewed 09/27/2009 12:00 AM LIPID PANEL Reviewed 08/10/2012 12:00 AM Depo-Medrol 80 Mg Im/C'tara Reviewed 08/10/2012 12:00 AM Decadron, Per 1 Mg [facility]# [address]-95 Reviewed 03/30/2013 12:00 AM Flu Injection 3 Years And Above [facility]# [address]-45 [facility] Reviewed 07/28/2013 12:00 AM COMPLETE CBC [...] Reviewed 10/29/2010 12:00 AM Renan, 1 gm, [facility] [id number]-[id number] Reviewed 11/09/2010 12:00 AM THER/PROPH/DIAG INJ SC/IM [...] BILI 0.50 mg/dLCALCIUM 9.60 mg/dLeGFR >60 mL/min/1.73 [id number] 73.0 mg/dLCHOLESTEROL 170.0 mg/dLHDL 58.0 mg/dLLDL (CALC) 97.0 mg/dLURIC ACID 5.6 mg/dL 09/29/2014 10:45 AM C DIFFICILE NAAT NEGATIVE WBC STOOL FEW WBC SEEN WBC STOOL FEW WBC SEEN 07/11/2015 10:30 AM WBC 7.2 RBC 4.69 HGB 13.20 g/dLHCT 39.40 %MCV 84.0 fLMCH 28.10 pgMCHC 33.50 g/dLRDW CV 13.60 %MPV 9.80 fLPLT 169 %NEUT 70.30 %%LYMP 22.30 %%MONO 6.10 %%EOS 1.0 %%BASO 0.30 %#NEUT 5.07 #LYMP 1.61 #MONO 0.44 #EOS 0.07 #BASO 0.02 TRIGLYCERIDES 83.0 mg/dLCHOLESTEROL 188.0 mg/dLHDL 47.0 mg/dLLDL (CALC) 124.0 mg/dLGLUCOSE 106.0 mg/dLSODIUM 132.0 mmol/LPOTASSIUM 4.30 mmol/LCHLORIDE 99.0 mmol/LCO2 24.0 mmol/LBUN 16.0 mg/dLCREATININE 1.10 mg/dLSGOT/AST 16.0 IU/LSGPT/ALT 12.0 IU/LALK PHOS 82.0 IU/LTOTAL PROTEIN 6.40 g/dLALBUMIN 4.10 g/dLTOTAL BILI 0.90 mg/dLCALCIUM 9.50 mg/dLeGFR >60 mL/min/1.73m History Of Immunizations Name Date Admin Mfg Name Mfg Code Trade Name Lot# Route Inj Vis Given Vis Pub CVX Td 11/09/2010 sanofi pasteur PMC BOOSTRIX [id number] Intramuscular Left Arm 11/09/2010 01/29/2008 999 Influenza 05/26/2012 sanofi pasteur PMC Fluzone [id number] Intramuscular Left Deltoid 05/26/2012 12/30/2011 141 Influenza 03/30/2013 sanofi pasteur PMC Fluzone [id number] Intramuscular Left Deltoid 03/30/2013 01/09/2013 141 History [...] 2:19PM Actinic keratitis Nov 20 2015 2:32PM Payers Insurance Name Company Name Plan Name Plan Number Policy Number Policy Group Number Start Date [facility] Hum[employer] Claims Center [id number] N/A Medicare Part A Medicare - Lab/Xray [id number] N/A Medicare Part B Medicare Of [place] [id number] N/A [id number] June Medicare Part A Medicare Part A [id number] N/A [facility] [id number] June History of Encounters Visit Date Visit Type Provider 11/20/2015 Office visit Sixto Charlton MD 07/11/2015 [...] Charlton MD 08/14/2011 Office visit Jane Astudillo BIOFUELS PROCESSING TECHNICIAN 05/22/2011 Office visit Sixto Charlton MD 04/24/2011 Office visit Loyd Hester MD 04/11/2011 Hospital Loyd Hester MD 04/01/2011 Office visit Loyd Hester MD 01/30/2011 Office visit Jane Astudillo BIOFUELS PROCESSING TECHNICIAN 11/19/2010 Hospital Elham Arcos MD 11/19/2010 Office visit Jane Astudillo BIOFUELS PROCESSING TECHNICIAN 11/09/2010 Office visit Elham PIKE 11/07/2010 Office visit Elham PIKE 10/31/2010 Office visit Jane Astudillo BIOFUELS PROCESSING TECHNICIAN 10/29/2010 Office visit Jane Astudillo BIOFUELS PROCESSING TECHNICIAN 10/25/2010 Office visit Sixto Charlton MD 07/17/2010 [...]
--- OUTSIDE RECORDS SUMMARY | 2018-12-09 06:46 | XMS REPORT ---
Author Author Sixto Charlton [facility] Address [address] [place], [place] [address] Care Team Providers Care Irrigation Specialist Name Role Phone Sixto Charlton PCP Unavailable pharmacy, right source Unavailable Unavailable Sixto Charlton PreferredProvider Unavailable Allergies and Adverse Reactions Name Reaction Notes simvastatin Plan of Treatment Planned Activity Comments Planned Date Planned Time Plan/Goal Basic metabolic panel 08/22/2011 12:00 AM Carotid Sono 03/30/2013 12:00 AM CBC With Auto Differential 03/30/2013 12:00 AM CMP 03/30/2013 12:00 AM Lipid Profile 03/30/2013 12:00 AM Flu Injection 3 Years And Above [facility]# [address]-27 [facility] 04/04/2014 12:00 AM Stool leukocyte detection [...] same meal each day for 90 days aspirin 81 mg oral tablet,delayed release (DR/EC) 11/20/2015 take 1 tablet (81 mg) by oral route once daily benazepril 20 mg oral tablet 01/17/2016 01/11/2017 take 0.5 tablet by oral route 2 times a day for 90 days tramadol 50 mg oral tablet 02/27/2016 TAKE ONE TABLET BY MOUTH EVERY 6 HOURS NEEDED amlodipine 5 mg oral tablet 04/10/2016 04/05/2017 take 1 tablet (5 mg) by oral route once daily for 90 days diazepam 5 mg oral tablet 06/03/2016 take 1 tablet by oral route 2 [...] oral route once daily for 90 days Plavix 75 mg oral [...] HC BMI BSA BMI Percentile O2 Sat(%) 06/05/2016 10:19:00 AM 146 mmHg 80 mmHg [...] 08/21/2011 12:00 AM COMPREHEN METABOLIC PANEL Reviewed 03/13/2012 12:00 AM METABOLIC PANEL TOTAL CA Reviewed 03/19/2012 12:00 AM METABOLIC PANEL TOTAL CA Reviewed 05/26/2012 12:00 AM Flu Injection 3 Years And Above [facility]# [address]-50 [facility] Reviewed 09/27/2009 12:00 AM COMPLETE CBC W/AUTO DIFF WBC Reviewed 09/27/2009 12:00 AM COMPREHEN METABOLIC PANEL Reviewed 09/27/2009 12:00 AM LIPID PANEL Reviewed 08/10/2012 12:00 AM Depo-Medrol 80 Mg Im/C'tara Reviewed 08/10/2012 12:00 AM Decadron, Per 1 Mg [facility]# [address]-04 Reviewed 03/30/2013 12:00 AM Flu Injection 3 Years And Above [facility]# [address]-53 [facility] Reviewed 07/28/2013 12:00 AM COMPLETE CBC [...] INJ SC/IM Reviewed 10/29/2010 12:00 AM Renan 1 gm, [facility] [id number]-Dulaorjq Reviewed 11/09/2010 12:00 AM THER/PROPH/DIAG INJ SC/IM [...] Vis Given Vis Pub CVX Td 11/09[facility]2010 [facility] PM[facility] BOOSTRIX [id number] Intramuscular Left Arm 11/09/2010 01/29/2008 999 Influenza 05/26/2012 [facility] PMC Fluzone [id number] Intramuscular Left Deltoid 05/26/2012 12/30/2011 141 Influenza 03/30/2013 [facility] PMC Fluzone [id number] Intramuscular Left Deltoid 03/30/2013 01/09/2013 141 Influenza 05/07/2016 Not Entered [place] Fluarix Quadrivalent [id number] Intramuscular Left Arm 05/07/2016 06/30/2016 141 History [...] 10:22AM Actinic keratitis Jun 05 2016 10:48AM Payers Insurance Name Company Name Plan Name Plan Number Policy Number Policy Group Number Start Date [employer] Humana Claims Center [id number] N/A Medicare Part A Medicare - Lab/Xray [id number] N/A Medicare Part B Medicare Of [place] [id number] N/A BCBS [facility] [id number] June Medicare Part A Medicare Part A [id number] N/A [facility] [id number] June History of Encounters Visit Date Visit Type Provider 06/05/2016 Office visit Sixto Charlton MD 04/15/2016 [...] 05/26/2012 Office visit Sixto Charlton MD 03/28/2012 [facility] Frida Smith MD 03/27/2012 [facility] Frida Smith MD 03/11/2012 Office visit Sixto Charlton MD 03/09/2012 Hospital Elham Arcos MD 01/15/2012 Office visit Sixto Charlton MD 08/14/2011 Office visit Jane Astudillo DIP LUBE OPERATOR 05/22/2011 Office visit Sixto Charlton MD 04/24/2011 Office visit Loyd Hester MD 04/11/2011 [facility] Loyd Hester MD 04/01/2011 Office visit Loyd Hester MD 01/30/2011 Office visit Jane Astudillo DIP LUBE OPERATOR 11/19/2010 [facility] Elham Arcos MD 11/19/2010 Office visit Jane Astudillo DIP LUBE OPERATOR 11/09/2010 Office visit Elham Conklin PA 11/07/2010 Office visit Elham Conklin PA 10/31/2010 Office visit Jane Astudillo DIP LUBE OPERATOR 10/29/2010 Office visit Jaen Astudillo DIP LUBE OPERATOR 10/25/2010 Office visit Sixto Charlton MD 07/17/2010 [...]
--- OUTSIDE RECORDS SUMMARY | 2018-12-09 06:47 | XMS REPORT ---
Author Author Sixto Charlton [facility] Address [address] [place], [place] [address] Care Team Providers Care Manager Change Name Role Phone Sixto Charlton PCP Unavailable [...] oral route once daily for 90 days aspirin 81 mg oral tablet,delayed release (DR/EC) 11/20/2015 take 1 tablet (81 mg) by oral route once daily diazepam 5 mg oral tablet 12/14/2015 take 1 tablet by oral route 2 times a day as needed benazepril 20 mg oral tablet 01/17/2016 01/11/2017 [...] oral route once daily for 7 days Name Start Date Expiration [...] HC BMI BSA BMI Percentile O2 Sat(%) 04/15/2016 2:53:00 PM 122 mmHg 64 mmHg [...] And Above [facility]# [address]-09 C Reviewed 09/27/2009 12:00 AM COMPLETE CBC W/AUTO DIFF WBC Reviewed 09/27/2009 12:00 AM COMPREHEN METABOLIC PANEL Reviewed 09/27/2009 12:00 AM LIPID PANEL Reviewed 08/10/2012 12:00 AM Depo-Medrol 80 Mg Im/C'tara Reviewed 08/10/2012 12:00 AM Decadron, Per 1 Mg [facility]# [address]-42 Reviewed 03/30/2013 12:00 AM Flu Injection 3 Years And Above [facility]# [address]-81 C Reviewed 07/28/2013 12:00 AM COMPLETE CBC [...] Reviewed 10/29/2010 12:00 AM Renan, 1 gm, [facility] [id number]-Qetloqxc Reviewed 11/09/2010 12:00 AM THER/PROPH/DIAG INJ SC/IM [...] BILI 0.50 mg/dLCALCIUM 9.60 mg/dLeGFR >60 mL/min/1.73 [id number] 73.0 mg/dLCHOLESTEROL 170.0 mg/dLHDL 58.0 mg/dLLDL (CALC) [...] Vis Given Vis Pub CVX Td 11/09/2010 [employer] PMC BOOSTRIX [id number] Intramuscular Left Arm 11/09/2010 01/29/2008 999 Influenza 05/26/2012 [employer] PMC Fluzone [id number] Intramuscular Left Deltoid 05/26/2012 12/30/2011 141 Influenza 03/30/2013 [employer] pasteur PMC Fluzone [id number] Intramuscular Left Deltoid 03/30/2013 01/09/2013 141 History [...] Upper Respiratory Infection Apr 15 2016 3:01PM Payers Insurance Name Company Name Plan Name Plan Number Policy Number Policy Group Number Start Date [employer] Humana Claims Center [id number] N/A Medicare Part A Medicare - Lab/Xray [id number] N/A Medicare Part B Medicare Of [place] [id number] N/A [facility] [id number] June Medicare Part A Medicare Part A [id number] N/A [facility] [id number] June History of Encounters Visit Date Visit Type Provider 04/15/2016 Office visit Sixto Charlton MD 01/17/2016 [...] visit Sixto Charlton MD 07/09/2012 Office visit Sxito Charlton MD 06/09/2012 Office visit Sixto Charlton MD 05/26/2012 Office visit Sixto Charlton MD 03/28/2012 Hospital Frida Smith MD 03/27/2012 Hospital Frida Smith MD 03/11/2012 Office visit Sixto Charlton MD 03/09/2012 [facility] Elham Arcos MD 01/15/2012 Office visit Sixto Charlton MD 08/14/2011 Office visit Jane Astudillo APRN 05/22/2011 Office visit Sixto Charlton MD 04/24/2011 Office visit Loyd Hester MD 04/11/2011 Hospital Loyd Hester MD 04/01/2011 Office visit Loyd Hester MD 01/30/2011 Office visit Jane Astudillo RESIDENTIAL INSURANCE INSPECTOR 11/19/2010 Hospital Elham Arcos MD 11/19/2010 Office visit Jane Baudilio RESIDENTIAL INSURANCE INSPECTOR 11/09/2010 Office visit Elham PIKE 11/07/2010 Office visit Elham PIKE 10/31/2010 Office visit Jane Astudillo RESIDENTIAL INSURANCE INSPECTOR 10/29/2010 Office visit Jane Astudillo RESIDENTIAL INSURANCE INSPECTOR 10/25/2010 Office visit Sixto Charlton MD 07/17/2010 [...]
--- OUTSIDE RECORDS SUMMARY | 2018-12-09 06:49 | XMS REPORT ---
Author Author Sixto Charlton [facility] Address [address] [place], [place] [address] Care Team Providers Care Engineering Faculty Member Name Role Phone Sixto Charlton PCP Unavailable pharmacy, right source Unavailable Unavailable Sixto Charlton PreferredProvider Unavailable Allergies and Adverse Reactions Name Reaction Notes simvastatin Plan of Treatment Planned Activity Comments Planned Date Planned Time Plan/Goal Carotid Sono 03/30/2013 12:00 AM CBC With Auto Differential 03/30/2013 12:00 AM CMP 03/30/2013 12:00 AM Lipid Profile 03/30/2013 12:00 AM Flu Injection 3 Years And Above [facility]# [address]-32 [facility] 04/04/2014 12:00 AM Stool leukocyte detection [...] (81 mg) by oral route once daily Plavix 75 mg oral tablet 03/04/2017 TAKE 1 TABLET ONE TIME DAILY pravastatin 40 mg oral tablet 03/04/2017 TAKE 1 TABLET EVERY DAY tramadol 50 mg oral tablet 03/04/2017 TAKE ONE TABLET BY MOUTH EVERY 6 HOURS NEEDED amlodipine 5 mg oral tablet 03/04/2017 TAKE 1 TABLET ONE TIME DAILY benazepril 20 mg oral tablet 03/04/2017 TAKE 1 TABLET EVERY DAY diazepam 5 mg oral tablet 03/04/2017 take 1 tablet by oral route 2 times a day as needed finasteride 5 mg oral tablet 03/04/2017 TAKE 1 TABLET ONE TIME DAILY Flomax 0.4 mg oral capsule,extended release 24hr 03/04/2017 TAKE 1 CAPSULE ONE TIME DAILY 30 MINUTES AFTER THE SAME MEAL EACH DAY Name Start Date Expiration Date SIG Comments [...] HC BMI BSA BMI Percentile O2 Sat(%) 03/18/2017 10:20:00 AM 136 mmHg 74 mmHg [...] AM Flu Injection 3 Years And Above [facility]# [address]-15 [facility] Reviewed 09/27/2009 12:00 AM COMPLETE CBC W/AUTO DIFF WBC Reviewed 09/27/2009 12:00 AM COMPREHEN METABOLIC PANEL Reviewed 09/27/2009 12:00 AM LIPID PANEL Reviewed 08/10/2012 12:00 AM Depo-Medrol 80 Mg Im/C'tara Reviewed 08/10/2012 12:00 AM Decadron, Per 1 Mg [facility]# [address]-96 Reviewed 03/30/2013 12:00 AM Flu Injection 3 Years And Above [facility]# [address]-88 [facility] Reviewed 07/28/2013 12:00 AM COMPLETE CBC [...] Reviewed 10/29/2010 12:00 AM Renan, Fan gm, [facility] [address]-47-Bnurlviv Reviewed 11/09/2010 12:00 AM THER/PROPH/DIAG INJ SC/IM [...] 13.20 g/dLHCT 39.40 %MCV 84.0 fLMCH 28.10 [facility] 33.50 g/dLRDW SD 41 RDW CV 13.60 [...] Vis Given Vis Pub CVX Td 11/09/2010 [employer] pasteur PMC BOOSTRIX [id number] Intramuscular Left Arm 11/09/2010 01/29/2008 999 Influenza 05/26/2012 [employer] pasteur PMC Fluzone [id number] Intramuscular Left Deltoid 05/26/2012 12/30/2011 141 Influenza 03/30/2013 [employer] pasteur PMC Fluzone [id number] Intramuscular Left Deltoid 03/30/2013 01/09/2013 141 Influenza 05/07/2016 Not Entered NE Fluarix Quadrivalent [id number] Intramuscular Left Arm 05/07/2016 06/30/2016 141 History [...] 10:22AM Actinic keratitis Mar 18 2017 11:02AM Payers Insurance Name Company Name Plan Name Plan Number Policy Number Policy Group Number Start Date Hum[employer] Humana Claims Center [id number] N/A Medicare Part A Medicare - Lab/Xray [id number] N/A Medicare Part B Medicare Of [place] [id number] N/A [id number] June Medicare Part A Medicare Part A [id number] N/A [facility] [id number] June History of Encounters Visit Date Visit Type Provider 03/18/2017 Office visit Sixto Charlton MD 02/17/2017 Office visit Sixto Charlton MD 06/05/2016 Office visit Sixto Charlton MD 04/15/2016 Office visit Sixto Charlton MD 01/17/2016 Office visit Jane Astudillo PROGRAM MANAGER SLP 11/20/2015 Office visit Sixto Charlton MD 07/11/2015 [...] Charlton MD 08/14/2011 Office visit Jane Astudillo PROGRAM MANAGER SLP 05/22/2011 Office visit Sixto Charlton MD 04/24/2011 Office visit Loyd Hester MD 04/11/2011 Hospital Loyd Hester MD 04/01/2011 Office visit Loyd Hester MD 01/30/2011 Office visit Jane Astudillo PROGRAM MANAGER SLP 11/19/2010 Hospital Elham Arcos MD 11/19/2010 Office visit Jane Astudillo PROGRAM MANAGER SLP 11/09/2010 Office visit Elham PIKE 11/07/2010 Office visit Elham PIKE 10/31/2010 Office visit Jane Baudilio PROGRAM MANAGER SLP 10/29/2010 Office visit Jane Astudillo PROGRAM MANAGER SLP 10/25/2010 Office visit Sixto Charlton MD 07/17/2010 [...]
--- OUTSIDE RECORDS SUMMARY | 2018-12-09 06:50 | XMS REPORT ---
Author Author Sixto Charlton [facility] Address [address] [place], [place] [address] Care Team Providers Care Food Processing Plant Manager Name Role Phone Sixto Charlton PCP Unavailable [...] AM Flu Injection 3 Years And Above [facility] 2]# [address]-10 [facility] Reviewed 09/27/2009 12:00 AM COMPLETE CBC W/AUTO DIFF WBC Reviewed 09/27/2009 12:00 AM COMPREHEN METABOLIC PANEL Reviewed 09/27/2009 12:00 AM LIPID PANEL Reviewed 08/10/2012 12:00 AM Depo-Medrol 80 Mg Im/C'tara Reviewed 08/10/2012 12:00 AM Decadron, Per 1 Mg [facility]NOTE 2]# [address]-12 Reviewed 03/30/2013 12:00 AM Flu Injection 3 Years And Above [facility]NOTE 2]# [address]-93 [facility] Reviewed 07/28/2013 12:00 AM COMPLETE CBC W/AUTO [...] Reviewed 10/29/2010 12:00 AM Renan, 1 gm, [facility]NOTE 2] [address]-47-Ssuqkqii Reviewed 11/09/2010 12:00 AM THER/PROPH/DIAG INJ SC/IM [...] BILI 0.50 mg/dLCALCIUM 9.60 mg/dLeGFR >60 mL/min/1.73 [id number] 73.0 mg/dLCHOLESTEROL 170.0 mg/dLHDL 58.0 mg/dLLDL (CALC) [...] CVX Td 11/09/2010 sanofi pasteur PMC BOOSTRIX [id number] Intramuscular Left Arm 11/09/2010 01/29/2008 999 Influenza 05/26/2012 sanofi pasteur PMC Fluzone [id number] Intramuscular Left Deltoid 05/26/2012 12/30/2011 141 Influenza 03/30/2013 sanofi pasteur PMC Fluzone [id number] Intramuscular Left Deltoid 03/30/2013 01/09/2013 141 History [...] Policy Number Policy Group Number Start Date [facility] Humana Claims Center [id number] N/A Medicare Part A Medicare - Lab/Xray [id number] N/A Medicare Part B Medicare Of [place] [id number] N/A [facility] [id number] June Medicare Part A Medicare Part A [id number] N/A [facility] [id number] June History of Encounters Visit Date Visit [...] Charlton MD 08/14/2011 Office visit Jane Astudillo THEATER PROJECTIONIST 05/22/2011 Office visit Sixto Charlton MD 04/24/2011 Office visit Loyd Hester MD 04/11/2011 Hospital Loyd Hester MD 04/01/2011 Office visit Loyd Hester MD 01/30/2011 Office visit Jane Astudillo THEATER PROJECTIONIST 11/19/2010 Hospital Elham Arcos MD 11/19/2010 Office visit Jane Astudillo THEATER PROJECTIONIST 11/09/2010 Office visit Elham PIKE 11/07/2010 Office visit Elham PIKE 10/31/2010 Office visit Jane Astudillo THEATER PROJECTIONIST 10/29/2010 Office visit Jane Astudillo THEATER PROJECTIONIST 10/25/2010 Office visit Sixto Charlton MD 07/17/2010 [...]
--- OUTSIDE RECORDS SUMMARY | 2018-12-09 06:51 | XMS REPORT ---
Author Author Jane Astudillo Organization [facility] Address [address] [place], [place] [id number] Care Team Providers Care Truck Hop Name Role Phone Jane Astudillo PCP Unavailable pharmacy, right source Unavailable Unavailable [...] TABLET BY MOUTH EVERY 6 HOURS NEEDED aspirin 81 mg oral tablet,delayed release (DR/EC) 11/20/2015 take 1 tablet (81 mg) by oral route once daily diazepam 5 mg oral tablet 12/14/2015 take 1 tablet by oral route 2 times a day as needed benazepril 20 mg oral tablet 01/17/2016 01/11/2017 take 0.5 tablet by oral route 2 times a day for 90 days Name Start Date Expiration Date SIG [...] HC BMI BSA BMI Percentile O2 Sat(%) 01/17/2016 11:40:00 AM 122 mmHg 60 mmHg [...] 174 lbs 68 in 26.4563 kg/m 1.9459 01/15/2012 10:17:00 AM 130 mmHg 62 mmHg [...] AM Flu Injection 3 Years And Above [facility]# [id number] RHC Reviewed 09/27/2009 12:00 AM COMPLETE CBC W/AUTO DIFF WBC Reviewed 09/27/2009 12:00 AM COMPREHEN METABOLIC PANEL Reviewed 09/27/2009 12:00 AM LIPID PANEL Reviewed 08/10/2012 12:00 AM Depo-Medrol 80 Mg Im/C'tara Reviewed 08/10/2012 12:00 AM Decadron, Per 1 Mg [facility]# [id number] Reviewed 03/30/2013 12:00 AM Flu Injection 3 Years And Above [facility]# [address]-19 C Reviewed 07/28/2013 12:00 AM COMPLETE CBC [...] Reviewed 10/29/2010 12:00 AM Renan, 1 gm, [facility] [id number] Reviewed 11/09/2010 12:00 AM THER/PROPH/DIAG INJ SC/IM [...] BILI 0.50 mg/dLCALCIUM 9.60 mg/dLeGFR >60 mL/min/1.73 [id number] 73.0 mg/dLCHOLESTEROL 170.0 mg/dLHDL 58.0 mg/dLLDL (CALC) [...] CVX Td 11/09/2010 sanofi pasteur PMC BOOSTRIX [id number] Intramuscular Left Arm 11/09/2010 01/29/2008 999 Influenza 05/26/2012 sanofi pasteur PMC Fluzone [id number] Intramuscular Left Deltoid 05/26/2012 12/30/2011 141 Influenza 03/30/2013 [facility] PMC Fluzone [id number] Intramuscular Left Deltoid 03/30/2013 01/09/2013 141 History [...] 2015 2:32PM Hypertension Jan 17 2016 11:42AM Payers Insurance Name Company Name Plan Name Plan Number Policy Number Policy Group Number Start Date Humana Humana Claims Center [id number] N/A Medicare Part A Medicare - Lab/Xray [id number] N/A Medicare Part B Medicare Of [place] [id number] N/A [id number] June Medicare Part A Medicare Part A [id number] N/A [facility] [id number] June History of Encounters Visit Date Visit Type Provider 01/17/2016 Office visit Jane Astudillo ROTARY FILTER OPERATOR 11/20/2015 Office visit Sixto Charlton MD 07/11/2015 [...] Charlton MD 08/14/2011 Office visit Jane Astudillo ROTARY FILTER OPERATOR 05/22/2011 Office visit Sixto Charlton MD 04/24/2011 Office visit Loyd Hester MD 04/11/2011 Hospital Loyd Hester MD 04/01/2011 Office visit Loyd Hester MD 01/30/2011 Office visit Jane Astudillo ROTARY FILTER OPERATOR 11/19/2010 Hospital Elham Arcos MD 11/19/2010 Office visit Jane Astudillo ROTARY FILTER OPERATOR 11/09/2010 Office visit Elham PIKE 11/07/2010 Office visit Elham PIKE 10/31/2010 Office visit Jane Baudilio ROTARY FILTER OPERATOR 10/29/2010 Office visit Jane Astudillo ROTARY FILTER OPERATOR 10/25/2010 Office visit Sixto Charlton MD [...]
--- OUTSIDE RECORDS SUMMARY | 2018-12-09 06:53 | XMS REPORT | Continuity of Care Document ---
Demographics Preferred Language Unknown Marital Status Unknown Yarsanism Affiliation Unknown Race Unknown Ethnic Group Unknown Author Organization Unknown Address Unknown Allergies Active Description Code Type Severity Reaction Onset Reported/Identified Relationship to Patient Clinical Status Yes No Known Drug Allergies 92827612 N/A N/A Yes SIMVASTATIN 23342945 DRUG N/A N/A Yes ZOCOR 99123419 BRANDNAME N/A N/A Medications There is no data. Problems There is no data. Procedures There is no data. Results There is no data. Encounters ACCT No. Visit Date/Time Discharge Status Pt. Type Provider Facility Loc./Unit Complaint [id number] 11/17/2018 16:11:02 Document Registration [id number] 11/16/2018 11:23:16 Document Registration [id number] 10/08/2018 09:57:15 Document Registration [id number] 09/22/2018 00:00:55 Document Registration [id number] 09/21/2018 15:49:19 Document Registration [id number] 09/07/2018 09:38:24 Document Registration [id number] 08/16/2017 18:02:41 Document Registration [id number] 08/14/2017 08:47:09 Document Registration [id number] 08/14/2017 08:45:23 Document Registration [id number] 07/15/2017 11:10:11 Document Registration [id number] 07/03/2017 15:14:54 Document Registration [id number] 07/01/2017 10:00:09 Document Registration [id number] 07/01/2017 09:58:56 Document Registration [id number] 06/25/2017 22:14:00 Document Registration [id number] 06/24/2017 09:59:24 Document Registration [id number] 06/19/2017 09:19:25 Document Registration [id number] 06/19/2017 09:19:09 Document Registration [id number] 06/18/2017 17:31:07 Document Registration [id number] 10/28/2018 09:55:07 10/28/2018 23:59:59 CLS Outpatient Sixto Charlton [id number] 09/21/2018 11:10:29 09/21/2018 23:59:59 CLS Outpatient Ervin Castillo [id number] 09/15/2018 10:47:29 09/15/2018 23:59:59 CLS Outpatient HetlingerSixto [id number] 07/13/2018 09:24:37 07/13/2018 23:59:59 CLS Outpatient HetlingerSixto [id number] 05/19/2018 10:46:48 05/19/2018 23:59:59 CLS Outpatient RomanlingSixto wagner [id number] 10/23/2017 14:16:48 10/23/2017 23:59:59 CLS Outpatient HetlingerSixto [id number] 08/27/2017 17:17:28 08/27/2017 23:59:59 CLS Outpatient Elham Arcos [id number] 07/31/2017 10:31:39 07/31/2017 23:59:59 CLS Outpatient Elham Arcos [id number] 07/15/2017 11:03:15 07/15/2017 23:59:59 CLS Outpatient Veena, V S [id number] 06/26/2017 14:23:50 06/26/2017 23:59:59 CLS Outpatient Koko Craigt [id number] 06/24/2017 10:50:43 06/24/2017 23:59:59 CLS Outpatient Veena, V S [id number] 03/18/2017 11:00:38 03/18/2017 23:59:59 CLS Outpatient HetlingerSixto [id number] 02/17/2017 14:25:13 02/17/2017 23:59:59 CLS Outpatient RomanlingSixto wagner [id number] 06/05/2016 10:50:08 06/05/2016 23:59:59 CLS Outpatient HetlingerSixto [id number] 04/15/2016 15:14:00 04/15/2016 23:59:59 CLS Outpatient HetlingerSixto [id number] 01/17/2016 12:28:35 01/17/2016 23:59:59 CLS Outpatient BaudilioJane [id number] 07/11/2015 10:10:28 07/11/2015 23:59:59 CLS Outpatient HetlingerSixto [id number] 03/07/2015 10:36:11 03/07/2015 23:59:59 CLS Outpatient HetlingerSixto [id number] 02/06/2015 22:20:00 02/06/2015 23:59:59 CLS Outpatient HetlingerSixto [id number] 10/07/2014 09:58:39 10/07/2014 23:59:59 CLS Outpatient HetlingerSixto [id number] 09/20/2014 10:10:14 09/20/2014 23:59:59 CLS Outpatient Hetlinger Sixto [id number] 04/04/2014 10:05:34 04/04/2014 23:59:59 CLS Outpatient HetlingSixto wagner [id number] 03/08/2014 10:28:20 03/08/2014 23:59:59 CLS Outpatient HetlingSixto wagner [id number] 12/28/2013 10:21:54 12/28/2013 23:59:59 CLS Outpatient HetlingSixto wagner [id number] 11/25/2013 09:40:14 11/25/2013 23:59:59 CLS Outpatient HetlingSixto wagner [id number] 07/28/2013 11:09:43 07/28/2013 23:59:59 CLS Outpatient HetSixto marin
--- OUTSIDE RECORDS SUMMARY | 2018-12-09 06:53 | XMS REPORT ---
Author Author John Curiel Organization [facility] Address [address] [place], [place] [address] Care Team Providers Care Technology Resource Teacher Name Role Phone John Curiel PCP Unavailable [...] And Above [facility]# [id number] [facility] 04/04/2014 12:00 AM Stool leukocyte [...] And Above [facility]# [id number] RHC Reviewed 09/27/2009 12:00 AM COMPLETE CBC W/AUTO DIFF WBC Reviewed 09/27/2009 12:00 AM COMPREHEN METABOLIC PANEL Reviewed 09/27/2009 12:00 AM LIPID PANEL Reviewed 08/10/2012 12:00 AM Depo-Medrol 80 Mg Im/C'tara Reviewed 08/10/2012 12:00 AM Decadron, Per 1 Mg [facility]# [address]-55 Reviewed 03/30/2013 12:00 AM Flu Injection 3 Years And Above [facility]# [id number] C Reviewed 07/28/2013 12:00 AM COMPLETE CBC [...] 1 gm, [facility] [id number] Reviewed 11/09/2010 12:00 AM THER/PROPH/DIAG INJ SC/IM [...] CVX Td 11/09/2010 sanofi pasteur PMC BOOSTRIX [id number] Intramuscular Left Arm 11/09/2010 01/29/2008 999 Influenza 05/26/2012 sanofi pasteur PMC Fluzone [id number] Intramuscular Left Deltoid 05/26/2012 12/30/2011 141 Influenza 03/30/2013 sanofi pasteur PMC Fluzone [id number] Intramuscular Left Deltoid 03/30/2013 01/09/2013 141 Influenza 05/07/2016 Not Entered NE Fluarix Quadrivalent [id number] Intramuscular Left Arm 05/07/2016 06/30/2017 141 History [...] Number Start Date Humana Humana Claims Center [id number] N/A Medicare Part A Medicare - Lab/Xray [id number] N/A Medicare Part B Medicare Of [place] [id number] N/A BCBS [facility] [id number] June Medicare Part A Medicare Part A [id number] N/A [facility] [id number] June History of Encounters Visit Date Visit [...] MD 03/28/2012 Hospital Deja James MD 03/27/2012 [facility] DEJA JAMES MD 03/11/2012 Office visit Sixto Charlton MD 03/09/2012 Hospital Elham Arcos MD 01/15/2012 Office visit Sixto Charlton MD 08/14/2011 Office visit Jane Astudillo PRESS ROOM SUPERVISOR 05/22/2011 Office visit Sixto Charlton MD 04/24/2011 Office visit Loyd Hester MD 04/11/2011 Hospital Loyd Hester MD 04/01/2011 Office visit Loyd Hester MD 01/30/2011 Office visit Jane Astudillo PRESS ROOM SUPERVISOR 11/19/2010 [facility] Elham Arcos MD 11/19/2010 Office visit Jane Astudillo PRESS ROOM SUPERVISOR 11/09/2010 Office visit Elham PIKE 11/07/2010 Office visit Elham PIKE 10/31/2010 Office visit Jane Astudillo PRESS ROOM SUPERVISOR 10/29/2010 Office visit Jane Astuidllo PRESS ROOM SUPERVISOR 10/25/2010 Office visit Sixto Charlton MD [...]
[2018-12-09] MEDS ORDERED: LIDOCAINE PF 2% 5 ML (XYLOCAINE) VIAL ONE (06:57)
[2018-12-09] MEDS ORDERED: SEVOFLURANE (ULTANE) 15 ML INHAL SOLN ONE (06:57)
[2018-12-09] MEDS ORDERED: proPOfol 200 MG/20 ML (DIPRIVAN) VIAL IV ONE (06:57)
[2018-12-09] MEDS ORDERED: ONDANSETRON 4 MG/2 ML (SDV) Z0FRAN ONE (06:57)
[2018-12-09] MEDS ORDERED: DEXAMETHASONE 10 MG/ML (DECADRON) 1 ML VIAL ONE (06:57)
--- NOTE | 2018-12-09 06:57 | Progress Note-Pre Operative ---
Pre-Operative Progress Note H&P Reviewed The H&P was reviewed, patient examined and no changes noted. Date Seen by Provider: Dec 09, 2018 Time Seen by Provider: 06:56 Date H&P Reviewed: Dec 09, 2018 Time H&P Reviewed: 06:56 Pre-Operative Diagnosis: SEVERE PHIMOSIS YENY ABREU MD Dec 09, 2018 06:57
[2018-12-09] MEDS ORDERED: fentaNYL INJECTION 100 MCG/2 ML AMP ONE (06:58)
[2018-12-09] MEDS ORDERED: MIDAZOLAM 2 MG/2 ML (VERSED) VIAL ONE (06:58)
--- NOTE | 2018-12-09 06:58 | Progress Note-Post Operative ---
Post-Operative Progess Note Surgeon (s)/Peanut Blancher (s) Surgeon YENY ABREU MD Peanut Blancher: NONE Pre-Operative Diagnosis SEVERE PHIMOSIS Post-Operative Diagnosis SAME Procedure & Operative Findings Date of Procedure 12/09/18 Procedure Performed/Findings CIRCUMCISION Anesthesia Type GENERAL Estimated Blood Loss Estimated blood loss (mL): NEGLIGIBLE Specimens/Packing Specimens Removed NONE TO PATHOLOGY Packing: NONE YENY ABREU MD Dec 09, 2018 06:58
[2018-12-09] MEDS ORDERED: NEOSPORIN + PAIN RELIEF CREAM 15 GM ONE (07:02)
--- NOTE | 2018-12-09 07:02 | Discharge Inst-Urology ---
Discharge Inst-Urology Discharge Medications New, Converted, or Re-newed RX: RX on Chart Patient Instructions/Follow Up Plan Please make appointment to been seen in office in 2 weeks. Rest till then, and off Plavix tomorrow start showers, no bath Keep bowels soft and moving Neosporin + pain to circ area bid for 5 days Ice to penis in RR and at home for 6 hours and then PRN Increase oral fluids for 48 hours and then as needed. Diet and Activity as tolerated. If questions or concerns contact your physician Or seek help at emergency department. YENY ABREU MD Dec 09, 2018 07:01
[2018-12-09] MEDS ORDERED: ceFAZolin INJECTION 1,000 MG ONE (07:25)
[2018-12-09 08:28] VITALS: BP 155/61
[2018-12-09 08:40] VITALS: BP 176/69
[2018-12-09 08:50] VITALS: BP 182/72
[2018-12-09 09:05] VITALS: BP_SYST 174; BP_SYST 189; BP_DIAS 72; BP_DIAS 84
[2018-12-09] MEDS ORDERED: CEPH-507 PO (09:22)
[2018-12-09 09:35] VITALS: BP 178/87
--- NOTE | 2018-12-09 12:56 | OPERATIVE REPORT ---
DATE OF SERVICE: 12/09/2018 PREOPERATIVE DIAGNOSIS: Severe phimosis. POSTOPERATIVE DIAGNOSIS: Severe phimosis. OPERATION PERFORMED: Circumcision. SURGEON: Dr. Abreu. ANESTHESIA: General. COMPLICATIONS: None. DESCRIPTION OF PROCEDURE: Under satisfactory general anesthesia, the patient in supine position, genitalia were prepped and draped in the usual sterile fashion. An incision was made in the foreskin at the level of the marquez glandis. Then, I performed a dorsal slit to be able to retract the foreskin and washed penis thoroughly with Betadine solution, free of any smegma. Then, I made a circular incision in the mucosa just proximal to the coronal glandis. The excess foreskin was sharply excised. Bleeders were cauterized and hemostasis was complete. The skin and the mucosa were approximated at 4-quadrant and then running suture was performed between the quadrants. Neosporin + pain skin ointment was applied. The patient tolerated the procedure and anesthesia well and was sent to recovery room in stable condition. Estimated blood loss was negligible. Job ID: [id number] DocumentID: [id number] Dictated Date: 12/09/2018 08:24:00 Replenishment Merchandising Associate Date: 12/09/2018 12:55:48 Dictated By: YENY ABREU MD [facility]
--- NOTE | 2018-12-09 14:00 | Anesthesia-General Post-Op ---
General Patient Condition Mental Status/LOC: Same as Preop Cardiovascular: Satisfactory Nausea/Vomiting: Absent Respiratory: Satisfactory Pain: Controlled Complications: Absent Post Op Complications Complications None Follow Up Care/Instructions Patient Instructions None needed. Anesthesia/Patient Condition Patient Condition Patient is doing well, no complaints, stable vital signs, no apparent adverse anesthesia problems. No complications reported per nursing. WALLY WYLIE CRNA Dec 09, 2018 14:00
== END 2018-12-09 10:20 | disposition home or self-care (01) ==
LOC: SDC 06:05
PROVIDERS: ATTEND Urology
DX: N47.1 Phimosis (principal); N40.0 Benign prostatic hyperplasia without lower urinary tract symptoms; I25.119 Atherosclerotic heart disease of native coronary artery with unspecified angina pectoris; N52.9 Male erectile dysfunction, unspecified; I10 Essential (primary) hypertension; I73.9 Peripheral vascular disease, unspecified; E78.00 Pure hypercholesterolemia, unspecified; M19.91 Primary osteoarthritis, unspecified site; Z96.651 Presence of right artificial knee joint; Z96.641 Presence of right artificial hip joint; Z95.1 Presence of aortocoronary bypass graft; Z79.899 Other long term (current) drug therapy; Z85.828 Personal history of other malignant neoplasm of skin; Z79.02 Long term (current) use of antithrombotics/antiplatelets